=== PATIENT | female | born 1950 | race Caucasian/White ===

== ENCOUNTER 2024-08-20 11:17 | Inpatient (IN) | payer MEDICAID, OTHER ==
[2024-08-20] VITALS (14 sets, daily range): BP systolic 94–119; BP diastolic 37–59; PULSE 72–103; RESP 16–23; TEMP 98.6–100.4; O2SAT 94–97
[~2024-08-20] VITALS: Ht 157.5 cm; Wt 63.0 kg
[~2024-08-20 11:17] MED LIST: ATOR10TA52 PO; EMPA1TAB3 PO; MEXI150C15 PO; POTA-180 PO; SACU1TAB PO; SPIR25TA8 PO
[2024-08-20] MEDS ORDERED: DEXTROSE (50%) 50ML SYRG IV PRN ×2 (11:30→14:15)
--- NOTE | 2024-08-20 11:31 | ECG ---
[facility] Test Date: 2024-08-20 Test Time: 11:23:03 Pat Name: LINDA PENN Department: ED Room: [address] [place] [address] Gender: F Business Process Engineer: philip : 1950 Requested By: EMILE LEMUS Order Number: [id number] Reading MD: Lambert Cruz Measurements Intervals [place] Rate: 77 P: 47 MI: 181 QRS: -63 QRSD: 118 T: 68 QT: 380 QTc: 431 Interpretive Statements Sinus rhythm Consider left atrial enlargement Incomplete left bundle branch block Probable left ventricular hypertrophy Anterior Q waves, possibly due to LVH ST elevation, consider inferior injury Electronically Signed On 08-21-2024 20:35:00 PDT by Lambert Cruz Please click the below link to view image of tracing.
--- NOTE | 2024-08-20 11:38 | ED.PDOC ---
History of Present Illness HPI Comments 73Y F with PMHx DM, CHF, HTN, and pacemaker presents to ED via EMS with chief complaint general weakness x6 days with malaise, fatigue, and body aches. Upon EMS arrival on scene, findings were: BS 572, BP 58/35, weak pulse, SpO2 93% on RA, good capillary refill, and good mentation. Per pt, BS was 274 yesterday and she is compliant with her medications. Pt denies eating sugary foods and states she has been urinating many times. Pt reports drinking 3-4 water bottles per day. No other signs/symptoms or history reported. 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 Family History Family History: Unknown Social History Smoker: Non-Smoker Alcohol: Denies ETOH Use Drugs: Denies Drug Use Lives In: Home Constitutional: reports: fatigue, malaise, weakness, others (body aches); denies: chills, diaphoresis, fever, sweats EENTM: denies: blurred vision, double vision, ear bleeding, ear discharge, ear drainage, ear pain, ear ringing, eye pain, eye redness, hearing loss, mouth pain, mouth swelling, nasal discharge, nose bleeding, nose congestion, nose pain, photophobia, tearing, throat pain, throat swelling, voice changes, others Respiratory: denies: cough, hemoptysis, orthopnea, SOB at rest, shortness of breath, SOB with excertion, stridor, wheezing, others Cardiovascular: denies: chest pain, dizzy spells, diaphoresis, Dyspnea on exertion, edema, irregular heart beat, left arm pain, lightheadedness, palpitations, PND, syncope, others Gastrointestinal: denies: abdomen distended, abdominal pain, blood streaked bowels, constipated, diarrhea, dysphagia, difficulty swallowing, hematemesis, melena, nausea, poor appetite, poor fluid intake, rectal bleeding, rectal pain, vomiting, others Genitourinary: denies: abnormal vagina bleeding, burning, dyspareunia, dysuria, flank pain, frequency, hematuria, incontinence, pain, , vagina discharge, urgency, others Neurological: denies: dizziness, fainting, headache, left sided numbness, left sided weakness, numbness, paresthesia, pre-existing deficit, right sided numbness, right sided weakness, seizure, speech problems, tingling, tremors, weakness, others Musculoskeletal: denies: back pain, gout, joint pain, joint swelling, muscle pain, muscle stiffness, neck pain, others Integumetry: denies: bruises, change in color, change in hair/nails, dryness, laceration, lesions, lumps, rash, wounds, others Allergic/Immunocompromised: denies: Difficulty Healing, Frequent Infections, Hives, Itching, others Hematologic/Lymphatic: denies: anemia, blood clots, easy bleeding, easy bruising, swollen glands, others Endocrine: denies: excessive hunger, excessive sweating, excessive thirst, excessive urination, flushing, intolerance to cold, intolerance to heat, unexplained weight gain, unexplained weight loss, others Psychiatric: denies: anxiety, bipolar disorder, depression, hopeless, panic disorder, schizophrenia, sleepless, suicidal, others All Other Systems: Reviewed and Negative Physical Exam General Appearance: Mild Distress HEENT: Pharynx Normal, TMs Normal, Other (no fruity breath, dry tongue) Neck: Full Range of Motion, Non-Tender, Normal, Normal Inspection Respiratory: Chest Non-Tender, Lungs Clear, No Accessory Muscle Use, No Respiratory Distress, Normal Breath Sounds Cardiovascular: No Edema, No JVD, No Murmur, No Gallop, Normal Peripheral Pulses, Regular Rate/Rhythm Breast Exam: Deferred Gastrointestinal: No Organomegaly, Non Tender, No Pulsatile Mass, Normal Bowel Sounds, Soft Genitalia: Deferred Pelvic: Deferred Rectal: Deferred Extremities: No calf tenderness, Normal capillary refill, Normal inspection, Normal range of motion, Non-tender, No pedal edema Musculoskeletal : Apperance: Normal Neurologic: Alert, regional merchandising manager II-XII nml as Tested, No Motor Deficits, Normal Affect, Normal Mood, No Sensory Deficits Cerebellar Function: Normal Reflexes: Normal Skin: Dry, Normal Color, Warm Lymphatic: No Adenopathy Was a procedure done? Was a procedure done?: No Differential Dx Considerations may include: DKA, HHNS, acs, electrolyte disorders, renal failure, dehydration X-Ray, Labs, Meds, VS Vital Signs Date Time Temp Pulse Resp B/P (MAP) Pulse Ox O2 Delivery O2 Flow Rate FiO2 08/20/24 12:02 78 21 66/25 (39) 08/20/24 11:31 98.0 80 26 58/38 (45) 93 98.0 08/20/24 11:23 77 Lab Test 08/20/24 13:03 08/20/24 12:51 08/20/24 12:01 08/20/24 11:48 Range/Units Troponin I High Sensitivity Pending 16 </=34 ng/L Urine Color Pending Urine Clarity Pending Urine pH Pending Urine Specific [place] Pending Urine Protein Pending Urine Ketones Pending Urine Blood Pending Urine Nitrite Pending Urine Bilirubin Pending Urine Urobilinogen Pending Urine Leukocyte Esterase Pending Urine RBC Pending Urine Microscopic WBC Pending Urine Squamous Epithelial Cells Pending Urine Bacteria Pending Urine Glucose Pending Blood Gas Specimen Type Arterial Blood Gas Sample Site Right brachial Blood Gas Patient Temperature 37.0 Arterial Blood Date Drawn [id number] Arterial Blood pH 7.274 L 7.350-7.450 Arterial Blood Partial Pressure CO2 25.8 L 32.0-45.0 mmHg Arterial Blood Partial Pressure O2 68.5 L 83.0-108.0 mmHg Arterial Blood HCO3 11.7 L 21.0-28.0 mmol/L Arterial Blood Oxygen Saturation 91.7 L 94.0-98.0 % Arterial Blood Base Excess -13.2 L -2.0-3.0 mmol/L Arterial Blood Oxyhemoglobin 91.1 L 94.0-98.0 % Arterial Blood Carboxyhemoglobin 0.1 L 0.5-1.5 % Arterial Blood Methemoglobin 0.6 0.0-1.5 % Bright Test N/a Blood Gas Total Hemoglobin 15.20 12.0-16.0 g/dL Blood Gas Modality Room air FiO2 % 21.0 White Blood Count 30.0 H 4.4-10.8 10^3/uL Red Blood Count 5.38 H 4.0-5.20 10^6/uL Hemoglobin 15.6 12.2-16.2 g/dL Hematocrit 47.9 H 36.0-46.0 % Mean Corpuscular Volume 89.0 80.0-100.0 fL Mean Corpuscular Hemoglobin 29.0 28.0-32.0 pg Mean Corpuscular Hemoglobin Concent 32.5 32.0-36.0 g/dL Red Cell Distribution Width 14.8 H 11.8-14.3 % Platelet Count 49 L 140-450 10^3/uL Mean Platelet Volume 11.6 H 6.9-10.8 fL Neutrophils (%) (Auto) 37.0-80.0 % Lymphocytes (%) (Auto) 10.0-50.0 % Monocytes (%) (Auto) 0.0-12.0 % Basophils (%) (Auto) 0.0-2.0 % Neutrophils # (Auto) 1.6-8.6 10 ^3/uL Lymphocytes # (Auto) 0.4-5.4 10 ^3/uL Monocytes # (Auto) 0-1.3 10 ^3/uL Differential Total Cells Counted 100.0 100 Neutrophils % (Manual) 78 37.0-80.0 Band Neutrophils % (Manual) 5 Lymphocytes % (Manual) 9 L 10.0-50.0 Monocytes % (Manual) 8 0-12 Eosinophils % (Manual) 0 0-7 Basophils % (Manual) 0 0.0-2.0 Metamyelocytes % (manual) 0 Myelocytes % (Manual) 0 Promyelocytes % (Manual) 0 Blast Cells % (Manual) 0 Reactive Lymphocytes 0 Platelet Estimate Decreased Sodium Level 121 L 136-145 mmol/L Potassium Level 5.4 H 3.5-5.1 mmol/L Chloride Level 94 L 98-107 mmol/L Carbon Dioxide Level 12 L 20-31 mmol/L Anion Gap 15 5-15 Blood Urea Nitrogen 54 H 9-23 mg/dL Creatinine 2.87 H 0.550-1.02 mg/dL Glomerular Filtration Rate Calc 17 >90 mL/min BUN/Creatinine Ratio 18.8 10.0-20.0 Serum Glucose 356 H 74-106 mg/dL Serum Osmolality Pending Calcium Level 9.7 8.7-10.4 mg/dL Phosphorus Level 6.2 H 2.4-5.1 mg/dL Magnesium Level 3.7 H 1.6-2.6 mg/dL Total Bilirubin 0.4 0.2-1.0 mg/dL Aspartate Amino Transferase (AST) 57 H 13-40 U/L Alanine Aminotransferase (ALT) 33 7-40 U/L Alkaline Phosphatase 134 H 46-116 U/L Total Protein 6.2 5.7-8.2 g/dL Albumin 3.2 3.2-4.8 g/dL Beta-Hydroxybutyric Acid 2.865 H < 0.4 mmol/L Current Medications Medications (Trade) Dose Ordered Sig/Justen Route Start Time Stop Time Status Last Admin Sodium Chloride 1,000 ml @ 200 mls/hr Q5H ONCE IV 08/20/24 11:30 08/20/24 16:29 08/20/24 12:39 Insulin Human Regular (InsuLIN R) 4 units ONCE ONCE IV 08/20/24 11:30 08/20/24 11:31 DC 08/20/24 12:00 Insulin Human (Reg)/Sodium Chloride 100 ml @ 0.5 mls/hr Q24H IV 08/20/24 11:30 08/20/24 12:44 Diagnostic Test (Pha) (Accu-Chek Comfort Curve T) 1 strip Q90MIN 08/20/24 12:00 08/20/24 12:02 Insulin Glargine (Lantus) 15 units ONCE ONCE SC 08/20/24 11:30 08/20/24 11:31 DC 08/20/24 12:40 Sodium Chloride 500 ml @ 500 mls/hr Q1H ONCE IV 08/20/24 12:00 08/20/24 12:59 DC 08/20/24 11:55 [place] [address] Ph: [phone] DIAGNOSTIC IMAGING Diagnostic Imaging Report : [id number] Signed PATIENT: LINDA PENN ACCT: [id number] UNIT: [id number] : 1950 LOC: ER ROOM / BED: / AGE / SEX: 73 / F ADM STATUS: REG ER SERVICE ORDERING PHYSICIAN: EMILE LEMUS MD PROCEDURE(s): CXRP - CHEST PORTABLE REASON: weakness ORDER NUMBER(s): [id number], ACCESSION NUMBER(s): [id number] CHEST RADIOGRAPH Indication: weakness Technique: Single frontal view of the chest was obtained COMPARISON: None FINDINGS: Lines and Tubes: Pacemaker wires appear intact Lungs: Clear Pleura: No effusion. No pneumothorax. Cardiomediastinal contours: Mild cardiomegaly. Vascular calcification of the aortic arch. Bones: Unremarkable IMPRESSION: 1. No acute disease. ATED BY: PILO WHEELER MD DICTATED DATE/TIME: 08/20/241244 SIGNED BY: PILO WHEELER MD SIGNED DATE/TIME: 08/20/241244 CC: Time of 1ST Reevaluation: 11:52 Reevaluation 1ST: Unchanged Time of 2ND Reevaluation: 13:16 Reevaluation 2ND: Improved Patient Education/Counseling: Diagnosis, Treatment, Prognosis, Need For Follow Up Family Education/Counseling: No Family Present Additional Information The following tests were ordered, and results were reviewed by me: ACCUCHEK, EKG X3, CBC, CMP, TROP X3, PHOSPHORUS, MG, OSMOLALITY, ACETONE, ABG, UA, FLU A/B, COVID, CXR Additional Information was gathered from interviewing the following independent historians: EMS I reviewed and agreed with the following test results read by other providers: CXR I discussed treatment and results with medical personnel and: Patient Comprehensive systems review obtained and negative except for what is stated in the HPI. pt has HONKS/DKA mix disorder, with severe dehydration, leading to hypotension, renal failure, and leukocytosis. she also has pseudohyponatremia due to hyperglycemia. although no sources of infection is identified yet, sepsis cannot be ruled out at this point, so i added sepsis order set. pt will need copious volume replacement, despite of the history CHF. Sepsis Sepsis Reasesment Focused Exam Sepsis focused exam: focus exam completed (improved BP with systolic in the 120s, cap refill<2 secs, alert, oriented), time: (1326) Departure 1 Departure Time of Disposition: 13:22 Impression: Primary Impression: DKA (diabetic ketoacidosis) Qualified Codes: E13.10 - Other specified diabetes mellitus with ketoacidosis without coma Additional Impressions: Hyperosmolar syndrome Dehydration Acute renal failure Qualified Codes: N17.9 - Acute kidney failure, unspecified Pseudohyponatremia Disposition: ADMITTED INPATIENT Admit to: ICU Condition: Serious Critical Care Note Critical Care Time?: Yes (55 min-critical care time only) Critical care comment: Due to concerns for patients condition deteriorating, the care required my highest level of attention and readiness to intervene. I assessed the patient, reviewed the medical records, ordered the appropriate tests and treatments, then reassessed for results and responsiveness. I communicated with medical personnel and consultants and formulated a plan of care. Total critical care time excludes any procedures Stability Stability form required: No Heart Score Heart Score: Heart Score Response (Comments) Value History N/A 0 EKG N/A 0 Age N/A 0 Risk Factors N/A 0 Troponin N/A 0 Total 0 I personally scribed for EMILE LEMUS MD ([email or web address]) on 08/20/24 at 11:37. Electronically submitted by Jesi Wadsworth ([email or web address]). I personally scribed for EMILE LEMUS MD ([email or web address]) on 08/20/24 at 12:51. Electronically submitted by Jesi Wadsworth ([email or web address]). EMILE LEMUS MD Aug 20, 2024 11:37
[2024-08-20] MEDS: SODIUM CHLORIDE 0.9% 500 ML IV ONE ×2 (11:55→16:49)
[2024-08-20] MEDS: InsuLIN REG 1unit/0.01ml Soln (100units/ml) IV ONE (12:00)
[2024-08-20 12:01] LABS: Mean Corpuscular Hgb Conc. 32.5 g/dL (32.0-36.0)
[2024-08-20] MEDS: ACCU-CHEK COMFORT CURVE STRIP VI SCH (12:02)
[2024-08-20 12:06] LABS: Hematocrit 47.9 % (36.0-46.0); Hemoglobin 15.6 g/dL (12.2-16.2); Platelet Count (auto) 49 10^3/uL (140-450); Red Blood Cells 5.38 10^6/uL (4.0-5.20); Red Cell Distribution Width 14.8 % (11.8-14.3)
[2024-08-20 12:10] LABS: Basophils % (manual) 0 (0.0-2.0); Blast Cells 0; Eosinophils % (manual) 0 (0-7); Metamyelocytes % 0; Myelocytes % 0; Promyelocytes % 0; Reactive Lymphocytes 0
[2024-08-20 12:11] LABS: Base Excess -13.2 mmol/L (-2.0-3.0)
[2024-08-20 12:24] LABS: Alanine Aminotransferase 33 U/L (7-40); Anion Gap 15 (5-15); BUN/Creatinine Ratio 18.8 (10.0-20.0); Bilirubin, Total 0.4 mg/dL (0.2-1.0); Calcium 9.7 mg/dL (8.7-10.4); Total Protein 6.2 g/dL (5.7-8.2)
[2024-08-20 12:33] LABS: Blood Urea Nitrogen 54 mg/dL (9-23); Carbon Dioxide 12 mmol/L (20-31); Chloride 94 mmol/L (98-107); Glucose 356 mg/dL (74-106); Potassium 5.4 mmol/L (3.5-5.1); Sodium 121 mmol/L (136-145)
[2024-08-20 12:34] LABS: Albumin 3.2 g/dL (3.2-4.8); Alkaline Phosphatase 134 U/L (46-116); Aspartate Aminotransferase 57 U/L (13-40); Magnesium 3.7 mg/dL (1.6-2.6); Phosphorus 6.2 mg/dL (2.4-5.1)
[2024-08-20] MEDS: SODIUM CHLORIDE 0.9% 1,000 ML IV ONE ×2 (12:39→16:49)
[2024-08-20] MEDS: INSULIN LANTUS (GLARGINE) 1 /0.01ml (100units/ml) SC ONE ×2 (12:40→14:30)
[2024-08-20] MEDS: INSULIN DRIP 100 UNIT/100ML 100 ML IV SCH (12:44)
--- NOTE | 2024-08-20 12:47 | DVH ---
CHEST RADIOGRAPH Indication: weakness Technique: Single frontal view of the chest was obtained COMPARISON: None FINDINGS: Lines and Tubes: Pacemaker wires appear intact Lungs: Clear Pleura: No effusion. No pneumothorax. Cardiomediastinal contours: Mild cardiomegaly. Vascular calcification of the aortic arch. Bones: Unremarkable IMPRESSION: 1. No acute disease.
[2024-08-20 12:55] LABS: Band Neutrophils % (manual) 5; Lymphocytes % (manual) 9 (10.0-50.0); Monocytes % (manual) 8 (0-12); Platelet Estimate Decreased
[2024-08-20 13:32] LABS: Urine Bacteria MANY /hpf (None Seen); Urine Blood 3+ /uL (Negative); Urine Clarity Turbid (Clear); Urine Color Colorless (Yellow); Urine Mucus MANY (None Seen); Urine Protein, UAD 1+ (Negative); Urine Specific Gravity 1.013 (1.001-1.035); Urine Squamous Epithelial Cell None Seen /hpf (<5); Urine Urobilinogen Normal (Negative); Urine WBC 15 /HPF (0-5)
[2024-08-20] MEDS: LACTATED RINGER'S 1,700 ML IV ONE (13:54)
[2024-08-20] MEDS: PIPERACILLIN-TAZOB 3.375GM 100 ML IV ONE (13:58)
[2024-08-20] MEDS ORDERED: PIPERACILLIN-TAZO 4.5GM 100 ML IV SCH (14:00)
[2024-08-20] MEDS ORDERED: D5W/SOD CHL 0.45%/KCL 20MEQ 1,000 ML IV SCH (14:15)
[2024-08-20] MEDS ORDERED: INSULIN DRIP 100 UNIT/100ML 100 ML IV SCH (14:15)
--- NOTE | 2024-08-20 14:18 | DVHHP2 ---
Admitting Diagnosis: Generalized weakness History of Present Illness 73Y F with PMHx DM, CHF, HTN, and pacemaker presents to ED via EMS with chief complaint general weakness x6 days with malaise, fatigue, and body aches. Upon EMS arrival on scene, findings were: BS 572, BP 58/35, weak pulse, SpO2 93% on RA, good capillary refill, and good mentation. Per pt, BS was 274 yesterday and she is compliant with her medications. Pt denies eating sugary foods and states she has been urinating many times. Pt reports drinking 3-4 water bottles per day. No other signs/symptoms or history reported. 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 Family History Family History: Unknown Social History Smoker: Non-Smoker Alcohol: Denies ETOH Use Drugs: Denies Drug Use Lives In: Home Allergies: Coded Allergies: NO KNOWN ALLERGIES (Unverified , 08/20/24) Current Medications Current Medications Medications (Trade) Dose Ordered Sig/Justen Route PRN Reason Start Time Stop Time Status Last Admin Insulin Human (Reg)/Sodium Chloride 100 ml @ 0.5 mls/hr Q24H IV 08/20/24 11:30 08/20/24 12:44 Dextrose 50 ml UD PRN IV SEE CURRENT ALGORITHM or SCALE 08/20/24 11:30 Diagnostic Test (Pha) (Accu-Chek Comfort Curve T) 1 strip Q90MIN 08/20/24 12:00 08/20/24 18:22 Insulin Glargine (Lantus) 15 units DAILY SC 08/21/24 10:00 08/20/24 14:12 DC Piperacillin Sod/ Tazobactam Sod 100 ml @ 25 mls/hr Q8HR IV 08/20/24 14:00 08/20/24 13:26 DC Piperacillin Sod/ Tazobactam Sod 100 ml @ 25 mls/hr Q12HR IV 08/20/24 22:00 Potassium Chloride/Dextrose/ Sod Cl 1,000 ml @ 175 mls/hr Q5H43M IV 08/20/24 14:15 08/20/24 15:17 DC Insulin Human (Reg)/Sodium Chloride 100 ml @ 0.5 mls/hr Q24H IV 08/20/24 14:15 08/20/24 14:13 DC Dextrose 50 ml UD PRN IV SEE CURRENT ALGORITHM or SCALE 08/20/24 14:15 08/20/24 14:12 DC Diagnostic Test (Pha) (Accu-Chek Comfort Curve T) 1 strip Q90MIN 08/20/24 15:00 08/20/24 14:12 DC Insulin Glargine (Lantus) 15 units DAILY SC 08/21/24 10:00 Norepinephrine Bitartrate 250 ml @ 3.75 mls/hr Q24H IV 08/20/24 15:15 08/20/24 16:00 Sodium Chloride (Saline Lock Ns) 10 ml Q8HR IV 08/20/24 22:00 Docusate Sodium (Colace Capsule) 100 mg BIDPRN PRN PO FOR CONSTIPATION 08/20/24 17:00 Acetaminophen (Tylenol Tablet) 650 mg Q6HP PRN PO PAIN SCALE 1-3 OR TEMP>100.4 08/20/24 17:00 Acetaminophen/ Hydrocodone Bitart ([place] 5/325MG Tab) 1 tab Q4HP PRN PO MODERATE PAIN (4-6 PAIN SCALE) 08/20/24 17:00 Ondansetron HCl (Zofran) 4 mg Q4HP PRN IV NAUSEA / VOMITING 08/20/24 17:00 Vital Signs Vital Signs Date Time Temp Pulse Resp B/P (MAP) Pulse Ox O2 Delivery O2 Flow Rate FiO2 08/20/24 18:15 96.3 92 25 108/69 (82) 94 96.3 08/20/24 13:06 Nasal Cannula* 2 28 Physical Exam Generally-73 years old woman, well nourished well developed. mild distress HEENT-atraumatic normocephalic Heart-sinus tachycardic Lungs the auscultate bilaterally, check anemia Abdomen soft, mild tender, nondistended Musculoskeletal-pedal edema, a cyanosis Neuro-Awake, alert, confused, answer some questions. strength and sensation intact. Results Labs Test 08/20/24 18:22 08/20/24 14:45 08/20/24 14:36 08/20/24 12:51 Range/Units POC Glucose 220 H 70-106 mg/dl Influenza Type A Antigen Negative Negative Influenza Type B Antigen Negative Negative SARS-CoV-2 Antigen (Rapid) Negative NEGATIVE White Blood Count 25.0 H 4.4-10.8 10^3/uL Red Blood Count 4.47 4.0-5.20 10^6/uL Hemoglobin 12.9 # 12.2-16.2 g/dL Hematocrit 38.7 # 36.0-46.0 % Mean Corpuscular Volume 86.5 80.0-100.0 fL Mean Corpuscular Hemoglobin 28.8 28.0-32.0 pg Mean Corpuscular Hemoglobin Concent 33.3 32.0-36.0 g/dL Red Cell Distribution Width 14.3 11.8-14.3 % Platelet Count 50 L 140-450 10^3/uL Mean Platelet Volume 11.5 H 6.9-10.8 fL Neutrophils (%) (Auto) 37.0-80.0 % Lymphocytes (%) (Auto) 10.0-50.0 % Monocytes (%) (Auto) 0.0-12.0 % Basophils (%) (Auto) 0.0-2.0 % Neutrophils # (Auto) 1.6-8.6 10 ^3/uL Lymphocytes # (Auto) 0.4-5.4 10 ^3/uL Monocytes # (Auto) 0-1.3 10 ^3/uL Differential Total Cells Counted 100.0 100 Neutrophils % (Manual) 80 37.0-80.0 Band Neutrophils % (Manual) 8 Lymphocytes % (Manual) 2 L 10.0-50.0 Monocytes % (Manual) 10 0-12 Eosinophils % (Manual) 0 0-7 Basophils % (Manual) 0 0.0-2.0 Metamyelocytes % (manual) 0 Myelocytes % (Manual) 0 Promyelocytes % (Manual) 0 Blast Cells % (Manual) 0 Reactive Lymphocytes 0 Platelet Estimate Decreased Large Platelets Few [place] Cells Few Prothrombin Time 13.5 H 9.3-11.8 sec Prothrombin Time INR 1.31 H 0.9-1.15 Sodium Level 130 #L 136-145 mmol/L Potassium Level 3.7 3.5-5.1 mmol/L Chloride Level 101 98-107 mmol/L Carbon Dioxide Level 16 L 20-31 mmol/L Anion Gap 13 5-15 Blood Urea Nitrogen 75 #H 9-23 mg/dL Creatinine 2.37 H 0.550-1.02 mg/dL Glomerular Filtration Rate Calc 21 >90 mL/min BUN/Creatinine Ratio 31.6 H 10.0-20.0 Serum Glucose 217 H 74-106 mg/dL Lactic Acid Level 2.8 *H 0.4-2.0 mmol/L Calcium Level 7.8 L 8.7-10.4 mg/dL Total Bilirubin 0.2 0.2-1.0 mg/dL Aspartate Amino Transferase (AST) 35 13-40 U/L Alanine Aminotransferase (ALT) 24 7-40 U/L Alkaline Phosphatase 83 46-116 U/L Troponin I High Sensitivity 10 </=34 ng/L Total Protein 4.2 L 5.7-8.2 g/dL Albumin 2.3 L 3.2-4.8 g/dL Urine Color Colorless Yellow Urine Clarity Turbid H Clear Urine pH 5.0 5.0-9.0 Urine Specific [place] 1.013 1.001-1.035 Urine Protein 1+ H Negative Urine Ketones Negative Negative Urine Blood 3+ H Negative /uL Urine Nitrite Negative Negative Urine Bilirubin Negative Negative Urine Urobilinogen Normal Negative mg/dL Urine Leukocyte Esterase 3+ Negative /uL Urine RBC 4 0 - 4 /hpf Urine Microscopic WBC 15 H 0-5 /HPF Urine Squamous Epithelial Cells None seen <5 /hpf Urine Bacteria Many H None Seen /hpf Urine Mucus Many None Seen Urine Glucose 4+ H Normal mg/dL Test 08/20/24 12:01 08/20/24 11:48 Range/Units Blood Gas Specimen Type Arterial Blood Gas Sample Site Right brachial Blood Gas Patient Temperature 37.0 Arterial Blood Date Drawn [id number] Arterial Blood pH 7.274 L 7.350-7.450 Arterial Blood Partial Pressure CO2 25.8 L 32.0-45.0 mmHg Arterial Blood Partial Pressure O2 68.5 L 83.0-108.0 mmHg Arterial Blood HCO3 11.7 L 21.0-28.0 mmol/L Arterial Blood Oxygen Saturation 91.7 L 94.0-98.0 % Arterial Blood Base Excess -13.2 L -2.0-3.0 mmol/L Arterial Blood Oxyhemoglobin 91.1 L 94.0-98.0 % Arterial Blood Carboxyhemoglobin 0.1 L 0.5-1.5 % Arterial Blood Methemoglobin 0.6 0.0-1.5 % Bright Test N/a Blood Gas Total Hemoglobin 15.20 12.0-16.0 g/dL Blood Gas Modality Room air FiO2 % 21.0 Serum Osmolality 306 H 278-298 mOsm/kg Phosphorus Level 6.2 H 2.4-5.1 mg/dL Magnesium Level 3.7 H 1.6-2.6 mg/dL Beta-Hydroxybutyric Acid 2.865 H < 0.4 mmol/L Primary Diagnosis DKA Sepsis likely due to urinary tract infection Severe hyponatremia Severe dehydration AZUCENA on CKD Plan Elevated beta hydroxybutyrate, hypotension, elevated WBC, elevated glucose Insulin drip started in ED for DKA NPO except meds IV fluids started in ED Pressor support for map goal > 65 while septic F/u with BCx, sputum Cx Zosyn for broad spectrum abx. adjust abx according to culture and sensitivity trend lactic q6h until < 2 Check BNP, CMP stat now to assess for electrolyte abnormalities IVF for hydration kidney us Dr. Juarez for AZUCENA CKD Electrolytes potassium greater than four, magnesium greater than two while in DKA Monitor vitals closely Full code Heparin for DVT prophylaxis PPI for GI prophylaxis Plan discussed with: Patient Problems List: (1) DKA (diabetic ketoacidosis) Status: Acute (2) Acute renal failure Status: Acute (3) Pseudohyponatremia Status: Acute Date of Service: Aug 20, 2024 Billing Provider: JOE LISA MD Common Visit Codes: [id number] CARE 30-74 MIN JOE LISA MD Aug 20, 2024 14:17
[2024-08-20 14:24] LABS: Lactic Acid w/Reflex 2.7 mmol/L (0.4-2.0)
[2024-08-20 14:52] LABS: Hemoglobin 12.9 g/dL (12.2-16.2)
[2024-08-20 14:55] LABS: Hematocrit 38.7 % (36.0-46.0); Mean Corpuscular Hemoglobin 28.8 pg (28.0-32.0); Mean Corpuscular Hgb Conc. 33.3 g/dL (32.0-36.0); Mean Corpuscular Volume 86.5 fL (80.0-100.0); Platelet Count (auto) 50 10^3/uL (140-450); Red Blood Cells 4.47 10^6/uL (4.0-5.20); Red Cell Distribution Width 14.3 % (11.8-14.3)
[2024-08-20] MEDS ORDERED: ACCU-CHEK COMFORT CURVE STRIP VI SCH (15:00)
[2024-08-20 15:10] LABS: Alanine Aminotransferase 24 U/L (7-40); Alkaline Phosphatase 83 U/L (46-116); Anion Gap 13 (5-15); Aspartate Aminotransferase 35 U/L (13-40); BUN/Creatinine Ratio 31.6 (10.0-20.0); Chloride 101 mmol/L (98-107); Potassium 3.7 mmol/L (3.5-5.1)
[2024-08-20 15:15] LABS: Basophils % (manual) 0 (0.0-2.0); Blast Cells 0; Eosinophils % (manual) 0 (0-7); Metamyelocytes % 0; Myelocytes % 0; Promyelocytes % 0; Reactive Lymphocytes 0
[2024-08-20 15:16] LABS: Carbon Dioxide 16 mmol/L (20-31); Sodium 130 mmol/L (136-145)
[2024-08-20 15:17] LABS: Albumin 2.3 g/dL (3.2-4.8); Bilirubin, Total 0.2 mg/dL (0.2-1.0); Blood Urea Nitrogen 75 mg/dL (9-23); Calcium 7.8 mg/dL (8.7-10.4); Glucose 217 mg/dL (74-106); Total Protein 4.2 g/dL (5.7-8.2)
[2024-08-20 15:20] LABS: INR 1.31 (0.9-1.15); Prothrombin Time 13.5 sec (9.3-11.8)
[2024-08-20] MEDS: D5W/SOD CHLO 0.9% 1,000 ML IV ONE (15:45)
[2024-08-20] MEDS: NOREPINEPHRINE 8 MG/250ML KIT 250 ML IV SCH (16:00)
[2024-08-20 16:02] LABS: COVID19 ANTIGEN SOFIA FIA NEGATIVE (NEGATIVE); Rapid Influenza A Negative (Negative); Rapid Influenza B Negative (Negative)
[2024-08-20 16:11] LABS: Band Neutrophils % (manual) 8; Lymphocytes % (manual) 2 (10.0-50.0); Monocytes % (manual) 10 (0-12); Platelet Estimate Decreased
[2024-08-20 16:13] LABS: Large Platelets FEW
[2024-08-20] MEDS: fentaNYL CITRATE 100 MCG/2 ML VL IV ONE (17:46)
--- NOTE | 2024-08-20 18:01 | DVH ---
RENAL ULTRASOUND CLINICAL HISTORY: AZUCENA on CKD TECHNIQUE: Multiple grayscale ultrasound images were obtained through the kidneys and urinary bladder . COMPARISON: None FINDINGS: Right kidney: Measures 9.63 cm. No hydronephrosis. Mild increased cortical echogenicity. Left kidney: Measures 7.85 cm. No hydronephrosis. Cyst in the left kidney measures 2.1 x 1.7 x 1.2 cm . Mild increased cortical echogenicity. Urinary bladder: Masters catheter decompresses the urinary bladder. IMPRESSION: 1. No evidence of hydronephrosis. 2. Small left renal cyst. 3. Mild increased bilateral cortical echogenicity which is likely due to medical renal disease.
[2024-08-20] MEDS: SODIUM CHLOR 0.9% PF (SALINE LOCK) 10ML VIAL/SYR IV SCH (21:06)
[2024-08-20] MEDS: PIPERACILLIN-TAZOB 3.375GM 100 ML IV SCH (21:07)
[2024-08-20] MEDS: ACETAMINOPHEN 325 MG TAB PO PRN (21:07)
[2024-08-20] MEDS: HYDROcodone-ACET 5/325MG TAB PO PRN (22:42)
[2024-08-21] VITALS (74 sets, daily range): BP systolic 61–193; BP diastolic 21–157; PULSE 75–128; RESP 12–28; TEMP 99–100.6; O2SAT 93–98
--- NOTE | 2024-08-21 00:22 | DVH ---
CT SCAN ABDOMEN AND PELVIS WITHOUT CONTRAST CLINICAL HISTORY: abdominal pain TECHNIQUE: Helical axial images are obtained from the lung bases through the pelvis without oral cont rast. No intravenous contrast was administered. Coronal and sagittal reformatted images were generate d from thin section reconstructions. One or more of the following radiation dose reduction techniques were used for this examination: automated exposure control, adjustment of the mA and/or kV according to patient size, use of iterative reconstruction technique. COMPARISON: Renal ultrasound 08/20/2024 FINDINGS: LOWER THORAX: Dependent atelectasis in the lower lobes. ABDOMEN AND PELVIS: Evaluation of visceral and vascular structures is limited due to lack of contrast administration. As visualized, the unenhanced liver, spleen, pancreas and right adrenal appear grossly unremarkable. Mild nodular thickening of the left adrenal gland is noted. Layering sludge/calculi in the gallbladder. No definite CT evidence cholecystitis. [id number] left hydroureteronephrosis. An approximately 1 cm x 0.6 cm irregular calculus seen i n the distal left ureter. Additional small nonobstructing left lower pole nephrolithiasis as well. Aortoiliac atherosclerotic calcifications. No evidence of abdominal aortic aneurysm. No evidence of bowel obstruction. Extensive colonic diverticulosis. No definite CT evidence of divert iculitis at this time. No free intraperitoneal air or fluid identified. Air urinary bladder is collapsed around a Masters catheter. Multilevel degenerative changes of the lumbar spine. IMPRESSION: Czvy-[id number]-[id number] left hydroureteronephrosis. Approximately 1 cm x 0.6 cm calculus seen in the distal left ureter. Other findings as above.
[2024-08-21] MEDS ORDERED: VANCOMYCIN PER PHARMACY 0 MG IV SCH (01:00)
[2024-08-21] MEDS: VANCOMYCIN 1.25GM/250ML 250 ML IV ONE (01:30)
[2024-08-21 04:45] LABS: Hemoglobin 15.1 g/dL (12.2-16.2); Mean Corpuscular Volume 85.7 fL (80.0-100.0); Platelet Count (auto) 49 10^3/uL (140-450); Red Cell Distribution Width 14.4 % (11.8-14.3)
[2024-08-21 04:47] LABS: Hematocrit 44.5 % (36.0-46.0); Mean Corpuscular Hemoglobin 29.1 pg (28.0-32.0); Mean Corpuscular Hgb Conc. 33.9 g/dL (32.0-36.0); Red Blood Cells 5.19 10^6/uL (4.0-5.20)
[2024-08-21 04:56] LABS: Alanine Aminotransferase 27 U/L (7-40); Anion Gap 11 (5-15); BUN/Creatinine Ratio 31.1 (10.0-20.0); Chloride 104 mmol/L (98-107); Potassium 3.8 mmol/L (3.5-5.1)
[2024-08-21 04:57] LABS: Bilirubin, Total 0.4 mg/dL (0.2-1.0); Sodium 131 mmol/L (136-145)
[2024-08-21 04:58] LABS: Albumin 2.8 g/dL (3.2-4.8); Alkaline Phosphatase 149 U/L (46-116); Aspartate Aminotransferase 54 U/L (13-40); Blood Urea Nitrogen 51 mg/dL (9-23); Calcium 8.6 mg/dL (8.7-10.4); Carbon Dioxide 16 mmol/L (20-31); Glucose 217 mg/dL (74-106); Magnesium 2.7 mg/dL (1.6-2.6); Total Protein 5.4 g/dL (5.7-8.2)
[2024-08-21 05:06] LABS: Basophils % (manual) 0 (0.0-2.0); Eosinophils % (manual) 0 (0-7); Metamyelocytes % 0; Myelocytes % 0; Promyelocytes % 0; Reactive Lymphocytes 0
[2024-08-21 05:32] LABS: Band Neutrophils % (manual) 7; Blast Cells 2; Lymphocytes % (manual) 4 (10.0-50.0); Monocytes % (manual) 10 (0-12); Platelet Estimate Decreased; Smudge Cells 2 /100 WBC
--- NOTE | 2024-08-21 08:44 | DVHINCON2 ---
Date of service: Aug 21, 2024 Referring Physician hospitalist Reason for Consultation obstructive uropathy History of Present Illness History Source: Patient, RN Notes, MD Notes Exam Limitations: No limitations HPI 73Y F with PMHx DM, CHF, HTN, and pacemaker presents to ED via EMS with chief complaint general weakness x6 days with malaise, fatigue, and body aches. Upon EMS arrival on scene, findings were: BS 572, BP 58/35, weak pulse, SpO2 93% on RA, good capillary refill, and good mentation. Per pt, BS was 274 yesterday and she is compliant with her medications. Pt denies eating sugary foods and states she has been urinating many times. Pt reports drinking 3-4 water bottles per day. No other signs/symptoms or history reported. Review of Systems Constitutional: Chills, Fever, Malaise, Weakness Gastrointestinal: Nausea, Vomiting, Abdominal Pain H&P Exam Vital Signs Vital Signs Date Time Temp Pulse Resp B/P (MAP) Pulse Ox O2 Delivery O2 Flow Rate FiO2 08/21/24 08:34 81 08/21/24 06:45 99.0 17 115/37 (63) 97 210.2 08/21/24 06:00 Nasal Cannula* 2 28 General Appeara: Well developed, Well nourished, Normal Appearance, Moderate distress Mouth: Dry mouth Pulmonary/Respiratory: Normal inspection, Normal breath sounds, Chest non- tender, Lungs clear Cardiovascular/Chest: Tachycardia Abdominal Exam: Normal bowel sounds, Soft, No masses PITCH FLAKER Exam: PERRL Neuro/Mental St: Alert, Oriented Appearance: Appropriate appearance, Appropriate insight Eye contact/ Speech: Cooperative, Good eye contact, Normal speech Skin Exam: Normal inspection, Normal color, Warm/dry Labs/Xrays [facility] [id number] [place] [id number] Ph: [phone] DIAGNOSTIC IMAGING Diagnostic Imaging Report : [id number] Signed PATIENT: LINDA PENN ACCT: [id number] UNIT: [id number] : 1950 LOC: OVERFLOW ROOM / BED: [facility] / A AGE / SEX: 73 / F ADM STATUS: ADM IN SERVICE 370 ORDERING PHYSICIAN: JOE LISA MD PROCEDURE(s): ABPL - CT AB PEL WO CON-NO ORAL OR IV REASON: abdominal pain ORDER NUMBER(s): [id number], ACCESSION NUMBER(s): [id number] CT SCAN ABDOMEN AND PELVIS WITHOUT CONTRAST CLINICAL HISTORY: abdominal pain TECHNIQUE: Helical axial images are obtained from the lung bases through the pelvis without oral contrast. No intravenous contrast was administered. Coronal and sagittal reformatted images were generated from thin section reconstructions. One or more of the following radiation dose reduction techniques were used for this examination: automated exposure control, adjustment of the mA and/or kV according to patient size, use of iterative reconstruction technique. COMPARISON: Renal ultrasound 08/20/2024 FINDINGS: LOWER THORAX: Dependent atelectasis in the lower lobes. ABDOMEN AND PELVIS: Evaluation of visceral and vascular structures is limited due to lack of contrast administration. As visualized, the unenhanced liver, spleen, pancreas and right adrenal appear grossly unremarkable. Mild nodular thickening of the left adrenal gland is noted. Layering sludge/calculi in the gallbladder. No definite CT evidence cholecystitis. [id number] left hydroureteronephrosis. An approximately 1 cm x 0.6 cm irregular calculus seen in the distal left ureter. Additional small nonobstru cting left lower pole nephrolithiasis as well. Aortoiliac atherosclerotic calcifications. No evidence of abdominal aortic aneu rysm. No evidence of bowel obstruction. Extensive colonic diverticulosis. No definite CT evidence of diverticulitis at this time. No free intraperitoneal air or fluid identified. Air urinary bladder is collapsed around a Pedroza catheter. Multilevel degenerative changes of the lumbar spine. IMPRESSION: [id number] left hydroureteronephrosis. Approximately 1 cm x 0.6 cm ca lculus seen in the distal left ureter. Other findings as above. ATED BY: JACOB BRIZUELA MD DICTATED DATE/TIME: 08/21/2418 SIGNED BY: JACOB BRIZUELA MD SIGNED DATE/TIME: 08/21/2418 CC: Labs Test 08/21/24 07:53 08/21/24 07:15 08/21/24 03:56 08/20/24 14:45 Range/Units POC Glucose 166 H 70-106 mg/dl White Blood Count 34.0 #*H 4.4-10.8 10^3/uL Red Blood Count 5.19 4.0-5.20 10^6/uL Hemoglobin 15.1 # 12.2-16.2 g/dL Hematocrit 44.5 # 36.0-46.0 % Mean Corpuscular Volume 85.7 80.0-100.0 fL Mean Corpuscular Hemoglobin 29.1 28.0-32.0 pg Mean Corpuscular Hemoglobin Concent 33.9 32.0-36.0 g/dL Red Cell Distribution Width 14.4 H 11.8-14.3 % Platelet Count 49 L 140-450 10^3/uL Mean Platelet Volume 11.4 H 6.9-10.8 fL Neutrophils (%) (Auto) 37.0-80.0 % Lymphocytes (%) (Auto) 10.0-50.0 % Monocytes (%) (Auto) 0.0-12.0 % Basophils (%) (Auto) 0.0-2.0 % Neutrophils # (Auto) 1.6-8.6 10 ^3/uL Lymphocytes # (Auto) 0.4-5.4 10 ^3/uL Monocytes # (Auto) 0-1.3 10 ^3/uL Differential Total Cells Counted 100.0 100 Neutrophils % (Manual) 77 37.0-80.0 Band Neutrophils % (Manual) 7 Lymphocytes % (Manual) 4 L 10.0-50.0 Monocytes % (Manual) 10 0-12 Eosinophils % (Manual) 0 0-7 Basophils % (Manual) 0 0.0-2.0 Metamyelocytes % (manual) 0 Myelocytes % (Manual) 0 Promyelocytes % (Manual) 0 Blast Cells % (Manual) 2 Reactive Lymphocytes 0 Smudge Cells 2 /100 WBC Platelet Estimate Decreased Sodium Level 131 L 136-145 mmol/L Potassium Level 3.8 3.5-5.1 mmol/L Chloride Level 104 98-107 mmol/L Carbon Dioxide Level 16 L 20-31 mmol/L Anion Gap 11 5-15 Blood Urea Nitrogen 51 #H 9-23 mg/dL Creatinine 1.64 #H 0.550-1.02 mg/dL Glomerular Filtration Rate Calc 33 >90 mL/min BUN/Creatinine Ratio 31.1 H 10.0-20.0 Serum Glucose 217 H 74-106 mg/dL Calcium Level 8.6 L 8.7-10.4 mg/dL Magnesium Level 2.7 #H 1.6-2.6 mg/dL Total Bilirubin 0.4 0.2-1.0 mg/dL Aspartate Amino Transferase (AST) 54 H 13-40 U/L Alanine Aminotransferase (ALT) 27 7-40 U/L Alkaline Phosphatase 149 H 46-116 U/L Total Protein 5.4 L 5.7-8.2 g/dL Albumin 2.8 L 3.2-4.8 g/dL Influenza Type A Antigen Negative Negative Influenza Type B Antigen Negative Negative SARS-CoV-2 Antigen (Rapid) Negative NEGATIVE Test 08/20/24 14:36 08/20/24 12:51 08/20/24 12:01 08/20/24 11:48 Range/Units Large Platelets Few [place] Cells Few Prothrombin Time 13.5 H 9.3-11.8 sec Prothrombin Time INR 1.31 H 0.9-1.15 Troponin I High Sensitivity 10 </=34 ng/L Urine Color Colorless Yellow Urine Clarity Turbid H Clear Urine pH 5.0 5.0-9.0 Urine Specific [place] 1.013 1.001-1.035 Urine Protein 1+ H Negative Urine Ketones Negative Negative Urine Blood 3+ H Negative /uL Urine Nitrite Negative Negative Urine Bilirubin Negative Negative Urine Urobilinogen Normal Negative mg/dL Urine Leukocyte Esterase 3+ Negative /uL Urine RBC 4 0 - 4 /hpf Urine Microscopic WBC 15 H 0-5 /HPF Urine Squamous Epithelial Cells None seen <5 /hpf Urine Bacteria Many H None Seen /hpf Urine Mucus Many None Seen Urine Glucose 4+ H Normal mg/dL Blood Gas Specimen Type Arterial Blood Gas Sample Site Right brachial Blood Gas Patient Temperature 37.0 Arterial Blood Date Drawn [id number] Arterial Blood pH 7.274 L 7.350-7.450 Arterial Blood Partial Pressure CO2 25.8 L 32.0-45.0 mmHg Arterial Blood Partial Pressure O2 68.5 L 83.0-108.0 mmHg Arterial Blood HCO3 11.7 L 21.0-28.0 mmol/L Arterial Blood Oxygen Saturation 91.7 L 94.0-98.0 % Arterial Blood Base Excess -13.2 L -2.0-3.0 mmol/L Arterial Blood Oxyhemoglobin 91.1 L 94.0-98.0 % Arterial Blood Carboxyhemoglobin 0.1 L 0.5-1.5 % Arterial Blood Methemoglobin 0.6 0.0-1.5 % Bright Test N/a Blood Gas Total Hemoglobin 15.20 12.0-16.0 g/dL Blood Gas Modality Room air FiO2 % 21.0 Serum Osmolality 306 H 278-298 mOsm/kg Phosphorus Level 6.2 H 2.4-5.1 mg/dL Beta-Hydroxybutyric Acid 2.865 H < 0.4 mmol/L Microbiology Date/Time Source Procedure Growth Status 08/20/24 13:03 Blood Blood Culture - Preliminary Resulted Assessment/Plan Problem List: (1) Dehydration (2) Acute renal failure (3) DKA (diabetic ketoacidosis) (4) Hyperosmolar syndrome (5) Pseudohyponatremia (6) Sepsis (7) Bacteremia Plan left PCN placement per IR service ESWL vs URSLL TBA when medically stable keep pedroza sepsis management Plan discussed with: Patient, Other NO HILL NP Aug 21, 2024 08:44
[2024-08-21 09:04] LABS: Lactic Acid w/Reflex 2.1 mmol/L (0.4-2.0)
[2024-08-21] MEDS ORDERED: INSULIN LANTUS (GLARGINE) 1 /0.01ml (100units/ml) SC SCH (10:00)
[2024-08-21] MEDS: INSULIN LANTUS (GLARGINE) 1 /0.01ml (100units/ml) SC SCH (11:09)
--- NOTE | 2024-08-21 11:38 | DVHINCON2 ---
Date of service: Aug 21, 2024 Reason for Consultation Acute kidney injury History of Present Illness 73-year-old female with past medical history of kidney stones, hypertension, diabetes, chronic kidney disease sees Dr. Juarez in renal Clinic for approximately stage III renal function. Presents to the hospital complaining of two days of severe weakness and inability to walk. She reports severe loss of muscle strength. Her hospital course is notable for hypotension requiring pressors and CT imaging showing left hydronephrosis. Nephrology was consulted due to elevated creatinine level. Past Medical History as above Allergies: Coded Allergies: NO KNOWN ALLERGIES (Unverified , 08/20/24) Current Medications Current Medications Medications (Trade) Dose Ordered Sig/Justen Route PRN Reason Start Time Stop Time Status Last Admin Diagnostic Test (Pha) (Accu-Chek Comfort Curve T) 1 strip Q90MIN 08/20/24 12:00 08/21/24 10:58 Insulin Glargine (Lantus) 15 units DAILY SC 08/21/24 10:00 08/20/24 14:12 DC Piperacillin Sod/ Tazobactam Sod 100 ml @ 25 mls/hr Q8HR IV 08/20/24 14:00 08/20/24 13:26 DC Piperacillin Sod/ Tazobactam Sod 100 ml @ 25 mls/hr Q12HR IV 08/20/24 22:00 08/21/24 09:40 Potassium Chloride/Dextrose/ Sod Cl 1,000 ml @ 175 mls/hr Q5H43M IV 08/20/24 14:15 08/20/24 15:17 DC Insulin Human (Reg)/Sodium Chloride 100 ml @ 0.5 mls/hr Q24H IV 08/20/24 14:15 08/20/24 14:13 DC Dextrose 50 ml UD PRN IV SEE CURRENT ALGORITHM or SCALE 08/20/24 14:15 08/20/24 14:12 DC Diagnostic Test (Pha) (Accu-Chek Comfort Curve T) 1 strip Q90MIN 08/20/24 15:00 08/20/24 14:12 DC Insulin Glargine (Lantus) 15 units DAILY SC 08/21/24 10:00 08/21/24 11:09 Norepinephrine Bitartrate 250 ml @ 3.75 mls/hr Q24H IV 08/20/24 15:15 08/21/24 10:42 Sodium Chloride (Saline Lock Ns) 10 ml Q8HR IV 08/20/24 22:00 08/21/24 06:03 Docusate Sodium (Colace Capsule) 100 mg BIDPRN PRN PO FOR CONSTIPATION 08/20/24 17:00 Acetaminophen (Tylenol Tablet) 650 mg Q6HP PRN PO PAIN SCALE 1-3 OR TEMP>100.4 08/20/24 17:00 08/20/24 21:07 Acetaminophen/ Hydrocodone Bitart ([place] 5/325MG Tab) 1 tab Q4HP PRN PO MODERATE PAIN (4-6 PAIN SCALE) 08/20/24 17:00 08/21/24 05:53 Ondansetron HCl (Zofran) 4 mg Q4HP PRN IV NAUSEA / VOMITING 08/20/24 17:00 Vancomycin HCl 0 ml @ 0 mls/hr UD IV 08/21/24 01:00 Review of Systems Generalized pain and weakness H&P Exam Vital Signs/I&O Vital Sign Date Time Temp Pulse Resp B/P (MAP) Pulse Ox O2 Delivery O2 Flow Rate FiO2 08/21/24 10:42 81/38 08/21/24 08:34 81 08/21/24 06:45 99.0 17 97 210.2 08/21/24 06:00 Nasal Cannula* 2 28 Intake and Output 08/20/24 08/21/24 19:00 07:00 Intake Total 3800 ml 1071.00 ml Output Total 400 ml 1800 ml Balance 3400 ml -729.00 ml Intake Oral 60 ml IV Total 3800 ml 1011.00 ml Output Urine Total 400 ml 1800 ml Physical Exam Weak appearing elderly obese female In moderate to severe distress due to pain her pain is nonspecific and generalized. Regular rate and rhythm Abdomen is soft No pitting edema Masters catheter has clear yellow urine Labs/Diagnostic Data Labs/Diagnostic Data Laboratory Tests Test 08/21/24 10:58 08/21/24 09:01 08/21/24 07:53 08/21/24 07:15 Range/Units POC Glucose 164 H 186 H 166 H 70-106 mg/dl Lactic Acid Level 2.1 *H 0.4-2.0 mmol/L Test 08/21/24 06:02 08/21/24 04:32 08/21/24 03:56 08/21/24 02:52 Range/Units POC Glucose 170 H 225 H 209 H 70-106 mg/dl White Blood Count 34.0 #*H 4.4-10.8 10^3/uL Red Blood Count 5.19 4.0-5.20 10^6/uL Hemoglobin 15.1 # 12.2-16.2 g/dL Hematocrit 44.5 # 36.0-46.0 % Mean Corpuscular Volume 85.7 80.0-100.0 fL Mean Corpuscular Hemoglobin 29.1 28.0-32.0 pg Mean Corpuscular Hemoglobin Concent 33.9 32.0-36.0 g/dL Red Cell Distribution Width 14.4 H 11.8-14.3 % Platelet Count 49 L 140-450 10^3/uL Mean Platelet Volume 11.4 H 6.9-10.8 fL Neutrophils (%) (Auto) 37.0-80.0 % Lymphocytes (%) (Auto) 10.0-50.0 % Monocytes (%) (Auto) 0.0-12.0 % Basophils (%) (Auto) 0.0-2.0 % Neutrophils # (Auto) 1.6-8.6 10 ^3/uL Lymphocytes # (Auto) 0.4-5.4 10 ^3/uL Monocytes # (Auto) 0-1.3 10 ^3/uL Differential Total Cells Counted 100.0 100 Neutrophils % (Manual) 77 37.0-80.0 Band Neutrophils % (Manual) 7 Lymphocytes % (Manual) 4 L 10.0-50.0 Monocytes % (Manual) 10 0-12 Eosinophils % (Manual) 0 0-7 Basophils % (Manual) 0 0.0-2.0 Metamyelocytes % (manual) 0 Myelocytes % (Manual) 0 Promyelocytes % (Manual) 0 Blast Cells % (Manual) 2 Reactive Lymphocytes 0 Smudge Cells 2 /100 WBC Platelet Estimate Decreased Sodium Level 131 L 136-145 mmol/L Potassium Level 3.8 3.5-5.1 mmol/L Chloride Level 104 98-107 mmol/L Carbon Dioxide Level 16 L 20-31 mmol/L Anion Gap 11 5-15 Blood Urea Nitrogen 51 #H 9-23 mg/dL Creatinine 1.64 #H 0.550-1.02 mg/dL Glomerular Filtration Rate Calc 33 >90 mL/min BUN/Creatinine Ratio 31.1 H 10.0-20.0 Serum Glucose 217 H 74-106 mg/dL Calcium Level 8.6 L 8.7-10.4 mg/dL Magnesium Level 2.7 #H 1.6-2.6 mg/dL Total Bilirubin 0.4 0.2-1.0 mg/dL Aspartate Amino Transferase (AST) 54 H 13-40 U/L Alanine Aminotransferase (ALT) 27 7-40 U/L Alkaline Phosphatase 149 H 46-116 U/L Total Protein 5.4 L 5.7-8.2 g/dL Albumin 2.8 L 3.2-4.8 g/dL Test 08/21/24 01:27 08/20/24 23:50 08/20/24 22:40 08/20/24 21:12 Range/Units POC Glucose 185 H 185 H 215 H 209 H 70-106 mg/dl Test 08/20/24 19:49 08/20/24 18:22 08/20/24 16:36 08/20/24 15:17 Range/Units POC Glucose 207 H 220 H 195 H 182 H 70-106 mg/dl Test 08/20/24 14:45 08/20/24 14:36 08/20/24 13:03 08/20/24 12:51 Range/Units Influenza Type A Antigen Negative Negative Influenza Type B Antigen Negative Negative SARS-CoV-2 Antigen (Rapid) Negative NEGATIVE White Blood Count 25.0 H 4.4-10.8 10^3/uL Red Blood Count 4.47 4.0-5.20 10^6/uL Hemoglobin 12.9 # 12.2-16.2 g/dL Hematocrit 38.7 # 36.0-46.0 % Mean Corpuscular Volume 86.5 80.0-100.0 fL Mean Corpuscular Hemoglobin 28.8 28.0-32.0 pg Mean Corpuscular Hemoglobin Concent 33.3 32.0-36.0 g/dL Red Cell Distribution Width 14.3 11.8-14.3 % Platelet Count 50 L 140-450 10^3/uL Mean Platelet Volume 11.5 H 6.9-10.8 fL Neutrophils (%) (Auto) 37.0-80.0 % Lymphocytes (%) (Auto) 10.0-50.0 % Monocytes (%) (Auto) 0.0-12.0 % Basophils (%) (Auto) 0.0-2.0 % Neutrophils # (Auto) 1.6-8.6 10 ^3/uL Lymphocytes # (Auto) 0.4-5.4 10 ^3/uL Monocytes # (Auto) 0-1.3 10 ^3/uL Differential Total Cells Counted 100.0 100 Neutrophils % (Manual) 80 37.0-80.0 Band Neutrophils % (Manual) 8 Lymphocytes % (Manual) 2 L 10.0-50.0 Monocytes % (Manual) 10 0-12 Eosinophils % (Manual) 0 0-7 Basophils % (Manual) 0 0.0-2.0 Metamyelocytes % (manual) 0 Myelocytes % (Manual) 0 Promyelocytes % (Manual) 0 Blast Cells % (Manual) 0 Reactive Lymphocytes 0 Platelet Estimate Decreased Large Platelets Few [place] Cells Few Prothrombin Time 13.5 H 9.3-11.8 sec Prothrombin Time INR 1.31 H 0.9-1.15 Sodium Level 130 #L 136-145 mmol/L Potassium Level 3.7 3.5-5.1 mmol/L Chloride Level 101 98-107 mmol/L Carbon Dioxide Level 16 L 20-31 mmol/L Anion Gap 13 5-15 Blood Urea Nitrogen 75 #H 9-23 mg/dL Creatinine 2.37 H 0.550-1.02 mg/dL Glomerular Filtration Rate Calc 21 >90 mL/min BUN/Creatinine Ratio 31.6 H 10.0-20.0 Serum Glucose 217 H 74-106 mg/dL Lactic Acid Level 2.8 *H 2.7 *H 0.4-2.0 mmol/L Calcium Level 7.8 L 8.7-10.4 mg/dL Total Bilirubin 0.2 0.2-1.0 mg/dL Aspartate Amino Transferase (AST) 35 13-40 U/L Alanine Aminotransferase (ALT) 24 7-40 U/L Alkaline Phosphatase 83 46-116 U/L Troponin I High Sensitivity 10 15 </=34 ng/L Total Protein 4.2 L 5.7-8.2 g/dL Albumin 2.3 L 3.2-4.8 g/dL Urine Color Colorless Yellow Urine Clarity Turbid H Clear Urine pH 5.0 5.0-9.0 Urine Specific [place] 1.013 1.001-1.035 Urine Protein 1+ H Negative Urine Ketones Negative Negative Urine Blood 3+ H Negative /uL Urine Nitrite Negative Negative Urine Bilirubin Negative Negative Urine Urobilinogen Normal Negative mg/dL Urine Leukocyte Esterase 3+ Negative /uL Urine RBC 4 0 - 4 /hpf Urine Microscopic WBC 15 H 0-5 /HPF Urine Squamous Epithelial Cells None seen <5 /hpf Urine Bacteria Many H None Seen /hpf Urine Mucus Many None Seen Urine Glucose 4+ H Normal mg/dL Test 08/20/24 12:01 08/20/24 11:48 Range/Units Blood Gas Specimen Type Arterial Blood Gas Sample Site Right brachial Blood Gas Patient Temperature 37.0 Arterial Blood Date Drawn [id number] Arterial Blood pH 7.274 L 7.350-7.450 Arterial Blood Partial Pressure CO2 25.8 L 32.0-45.0 mmHg Arterial Blood Partial Pressure O2 68.5 L 83.0-108.0 mmHg Arterial Blood HCO3 11.7 L 21.0-28.0 mmol/L Arterial Blood Oxygen Saturation 91.7 L 94.0-98.0 % Arterial Blood Base Excess -13.2 L -2.0-3.0 mmol/L Arterial Blood Oxyhemoglobin 91.1 L 94.0-98.0 % Arterial Blood Carboxyhemoglobin 0.1 L 0.5-1.5 % Arterial Blood Methemoglobin 0.6 0.0-1.5 % Bright Test N/a Blood Gas Total Hemoglobin 15.20 12.0-16.0 g/dL Blood Gas Modality Room air FiO2 % 21.0 White Blood Count 30.0 H 4.4-10.8 10^3/uL Red Blood Count 5.38 H 4.0-5.20 10^6/uL Hemoglobin 15.6 12.2-16.2 g/dL Hematocrit 47.9 H 36.0-46.0 % Mean Corpuscular Volume 89.0 80.0-100.0 fL Mean Corpuscular Hemoglobin 29.0 28.0-32.0 pg Mean Corpuscular Hemoglobin Concent 32.5 32.0-36.0 g/dL Red Cell Distribution Width 14.8 H 11.8-14.3 % Platelet Count 49 L 140-450 10^3/uL Mean Platelet Volume 11.6 H 6.9-10.8 fL Neutrophils (%) (Auto) 37.0-80.0 % Lymphocytes (%) (Auto) 10.0-50.0 % Monocytes (%) (Auto) 0.0-12.0 % Basophils (%) (Auto) 0.0-2.0 % Neutrophils # (Auto) 1.6-8.6 10 ^3/uL Lymphocytes # (Auto) 0.4-5.4 10 ^3/uL Monocytes # (Auto) 0-1.3 10 ^3/uL Differential Total Cells Counted 100.0 100 Neutrophils % (Manual) 78 37.0-80.0 Band Neutrophils % (Manual) 5 Lymphocytes % (Manual) 9 L 10.0-50.0 Monocytes % (Manual) 8 0-12 Eosinophils % (Manual) 0 0-7 Basophils % (Manual) 0 0.0-2.0 Metamyelocytes % (manual) 0 Myelocytes % (Manual) 0 Promyelocytes % (Manual) 0 Blast Cells % (Manual) 0 Reactive Lymphocytes 0 Platelet Estimate Decreased Sodium Level 121 L 136-145 mmol/L Potassium Level 5.4 H 3.5-5.1 mmol/L Chloride Level 94 L 98-107 mmol/L Carbon Dioxide Level 12 L 20-31 mmol/L Anion Gap 15 5-15 Blood Urea Nitrogen 54 H 9-23 mg/dL Creatinine 2.87 H 0.550-1.02 mg/dL Glomerular Filtration Rate Calc 17 >90 mL/min BUN/Creatinine Ratio 18.8 10.0-20.0 Serum Glucose 356 H 74-106 mg/dL Serum Osmolality 306 H 278-298 mOsm/kg Calcium Level 9.7 8.7-10.4 mg/dL Phosphorus Level 6.2 H 2.4-5.1 mg/dL Magnesium Level 3.7 H 1.6-2.6 mg/dL Total Bilirubin 0.4 0.2-1.0 mg/dL Aspartate Amino Transferase (AST) 57 H 13-40 U/L Alanine Aminotransferase (ALT) 33 7-40 U/L Alkaline Phosphatase 134 H 46-116 U/L Troponin I High Sensitivity 16 </=34 ng/L Total Protein 6.2 5.7-8.2 g/dL Albumin 3.2 3.2-4.8 g/dL Beta-Hydroxybutyric Acid 2.865 H < 0.4 mmol/L Assessment Acute kidney injury multifactorial in the setting of volume depletion and urinary obstruction Chronic kidney disease stage 3; sees Dr. Juarez Septic shock in the setting of urinary tract infection Left obstructing kidney stone with moderate hydronephrosis Metabolic acidosis Resume IV fluid hydration maintenance fluid at 100 cc/hour Patient is status post IV fluid boluses Currently on Levophed to maintain mean arterial pressure greater than 65 Strict Is&Os with current Masters catheter Urology saw patient recommended percutaneous nephrostomy tube of the left kidney IV antibiotics for treatment of urinary infection sepsis recommend with renal dosing Continue with electrolyte replacement Guarded prognosis Plan discussed with: Patient BRIANNA BOLANOS MD Aug 21, 2024 11:38
[2024-08-21] MEDS ORDERED: DEXTROSE (50%) 50ML SYRG IV PRN (12:00)
--- NOTE | 2024-08-21 12:20 | DVHPN2 ---
Subjective She continues to have diffuse body aches Reviewed: H&P Changes from previous H/P or p: No Changes General: Per HPI Objective Vitals Vital Signs Date Time Temp Pulse Resp B/P (MAP) Pulse Ox O2 Delivery O2 Flow Rate FiO2 08/21/24 10:42 81/38 08/21/24 08:34 81 08/21/24 06:45 99.0 17 97 210.2 08/21/24 06:00 Nasal Cannula* 2 28 Intake/Output Intake and Output 08/21/24 07:00 Intake Total 4871.00 ml Output Total 2200 ml Balance 2671.00 ml Intake Oral 60 ml IV Total 4811.00 ml Output Urine Total 2200 ml Exam Generally-73 years old woman, well nourished well developed. mild distress HEENT-atraumatic normocephalic Heart-sinus tachycardic Lungs the auscultate bilaterally, check anemia Abdomen soft, mild tender, nondistended Musculoskeletal-pedal edema, a cyanosis Neuro-Awake, alert, confused, answer some questions. strength and sensation intact. Medications Current Medications Medications Dose Ordered Sig/Justen Route Start Time Stop Time Status Last Admin Dose Admin Piperacillin Sod/ Tazobactam Sod 100 ml @ 25 mls/hr Q12HR IV 08/20/24 22:00 08/21/24 09:40 25 MLS/HR Insulin Glargine 15 units DAILY SC 08/21/24 10:00 08/21/24 11:09 15 UNITS Norepinephrine Bitartrate 250 ml @ 3.75 mls/hr Q24H IV 08/20/24 15:15 08/21/24 10:42 37.5 MLS/HR Sodium Chloride 10 ml Q8HR IV 08/20/24 22:00 08/21/24 06:03 10 ML Docusate Sodium 100 mg BIDPRN PRN PO 08/20/24 17:00 Acetaminophen 650 mg Q6HP PRN PO 08/20/24 17:00 08/20/24 21:07 650 MG Acetaminophen/ Hydrocodone Bitart 1 tab Q4HP PRN PO 08/20/24 17:00 08/21/24 05:53 1 TAB Ondansetron HCl 4 mg Q4HP PRN IV 08/20/24 17:00 Lactated Ringer's 1,000 ml @ 100 mls/hr Q10H IV 08/21/24 11:45 Diagnostic Test (Pha) 1 strip IQ4HR 08/21/24 12:00 Insulin Human Regular IQ4HR SC 08/21/24 12:00 Dextrose 50 ml UD PRN IV 08/21/24 12:00 Linezolid 300 ml @ 150 mls/hr Q12HR IV 08/21/24 22:00 Cefepime HCl 50 ml @ 12.5 mls/hr Q12HR IV 08/21/24 22:00 UNV Laboratory Results Laboratory Tests 08/21/24 03:56 Chemistry Test 08/20/24 14:36 08/21/24 03:56 Albumin 2.3 g/dL (3.2-4.8) L 2.8 g/dL (3.2-4.8) L Calcium Level 7.8 mg/dL (8.7-10.4) L 8.6 mg/dL (8.7-10.4) L Total Protein 4.2 g/dL (5.7-8.2) L 5.4 g/dL (5.7-8.2) L Magnesium Level 2.7 mg/dL (1.6-2.6) #H Coagulation Test 08/20/24 14:36 Prothrombin Time 13.5 sec (9.3-11.8) H Prothrombin Time INR 1.31 (0.9-1.15) H LFT Test 08/20/24 14:36 08/21/24 03:56 Alanine Aminotransferase (ALT) 24 U/L (7-40) 27 U/L (7-40) Alkaline Phosphatase 83 U/L (46-116) 149 U/L (46-116) H Aspartate Amino Transferase (AST) 35 U/L (13-40) 54 U/L (13-40) H Total Bilirubin 0.2 mg/dL (0.2-1.0) 0.4 mg/dL (0.2-1.0) Urinalysis Test 08/20/24 12:51 Urine Color Colorless (Yellow) Urine Clarity Turbid (Clear) H Urine pH 5.0 (5.0-9.0) Urine Specific [place] 1.013 (1.001-1.035) Urine Protein 1+ (Negative) H Urine Ketones Negative (Negative) Urine Blood 3+ /uL (Negative) H Urine Nitrite Negative (Negative) Urine Bilirubin Negative (Negative) Urine Urobilinogen Normal mg/dL (Negative) Urine Leukocyte Esterase 3+ /uL (Negative) Urine RBC 4 /hpf (0 - 4) Urine Microscopic WBC 15 /HPF (0-5) H Urine Squamous Epithelial Cells None seen /hpf (<5) Urine Bacteria Many /hpf (None Seen) H Urine Mucus Many (None Seen) Urine Glucose 4+ mg/dL (Normal) H Microbiology Microbiology Date/Time Source Procedure Growth Status 08/20/24 13:03 Blood Blood Culture - Preliminary Resulted Labs and/or images reviewed: Labs reviewed by me, Image(s) reviewed by me Assessment/Plan Assessment/Plan 08/21 the habits septic shock status post 3 L and still requiring more. Severe diffuse body aches. Concern for on vitamin-D shock versus rhabdo. She has left stone with hydro, obstructed, with infection, Patient needs urgent urological intervention,. Urology is on board plans for RR nephrostomy tube tomorrow. Patient is on broad-spectrum vanc Zosyn but also has severe AZUCENA BM nephrology following and giving more fluids. We will deescalate antibiotics to cefepime 2 Keep broad-spectrum also to remove any strain from kidneys, unable to do linezolid. Can try doxycycline.. Patient was also DKA/early DKA with the improvement of sugars and now on basal/sliding scale to maintain. Patient on Levophed we will continue with the goal map more than 65. Patient will likely need fluids and Levophed support until source control with IR tomorrow nephrostomy tube. Urology aware of septic picture repeating ultrasound renal which shows [id number] hydronephrosis, defer further intervention need to Urology. DKA/early DKA, resolved Septic shock likely due to urinary tract infection, requiring vasopressor support Lactic acidosis Anion gap metabolic acidosis Severe hyponatremia, pseudo due to hyperglycemia Severe dehydration Severe thrombocytopenia likely related to septic picture AZUCENA Vmn on CKD plan: -Status post 3 L, continue maintenance fluids -broad-spectrum vanc Zosyn deescalate to cefepime - can not do linezolid given thrombocytopenia we will try doxycycline -urology following planned for IR tomorrow nephrostomy tube for source control -continue Levophed to maintain map more than 65, fluids going -AZUCENA nmv nephrology consulted and following appreciate recs -We will trial baclofen to see if we can help with the body aches, continue pain control with [place]/morphine PRN - diffuse post body aches, we will check CPK Plan discussed with: Patient My Orders Orders - ARIADNA LEMUS MD Procedure Category Date Status Time Glucose Blood PHA 08/21/24 In Process (Accu-Chek Comfort 12:00 Insulin R (Human) PHA 08/21/24 In Process (Insulin R) 12:00 Dextrose 50% Syringe PHA 08/21/24 In Process 12:00 Creatine Kinase LAB 08/21/24 In Process 11:51 Linezolid 600mg/300ml PHA 08/21/24 In Process (Zyvox) 22:00 Clear Liq Diet DIET 08/21/24 Transmitted Lunch Cefepime 2gm/50ml Ns PHA 08/21/24 Logged (Maxipime 2gm/50ml) 22:00 Date of Service: Aug 21, 2024 Billing Provider: ARIADNA LEMUS MD Common Visit Codes: 92309-[id number] CARE 30-74 MIN ARIADNA LEMUS MD Aug 21, 2024 12:20
[2024-08-21] MEDS: LACTATED RINGER'S 1,000 ML IV SCH (12:22)
[2024-08-21] MEDS: ACCU-CHEK COMFORT CURVE STRIP VI SCH (12:33)
[2024-08-21] MEDS: InsuLIN REG 1unit/0.01ml Soln (100units/ml) SC SCH (12:41)
[2024-08-21] MEDS: LACTATED RINGER'S 1,000 ML IV ONE (13:01)
[2024-08-21 13:06] LABS: Base Excess -10.3 mmol/L (-2.0-3.0)
[2024-08-21] MEDS: BACLOFEN 10 MG TAB PO ONE (14:47)
--- NOTE | 2024-08-21 14:47 | DVH ---
US KIDNEY HISTORY: hydronephrosis COMPARISON: 08/20/24 TECHNIQUE: Transverse and longitudinal grayscale and color doppler images were obtained of the kidney s and bladder. FINDINGS: Right kidney: Size: 8.7 cm Cortical thickness: Normal Echogenicity: Normal Stones: None Masses: None Hydronephrosis: None Ureters: Not well visualized. Other: None Left kidney: Size: 8.8 cm Cortical thickness: Normal Echogenicity: Normal Stones: None Masses: None Hydronephrosis: Yes Ureters: Not well visualized. Other: None Bladder: Normal Other: None. IMPRESSION: Left hydronephrosis visualized, mild to moderate.
[2024-08-21] MEDS: CEFEPIME 2GM/50ML NS 50 ML IV SCH (16:30)
[2024-08-21] MEDS: BACLOFEN 10 MG TAB PO PRN (19:51)
[2024-08-21] MEDS: DOXYCYCLINE 100MG/100ML 100 ML IV SCH (21:09)
[2024-08-21] MEDS ORDERED: LINEZOLID 600MG/300ML 300 ML IV SCH (22:00)
[2024-08-21] MEDS: VASOPRESSIN 20 UNITS in SODIUM CHL 0.9% 99 ML IV SCH (23:52)
[2024-08-22] VITALS (63 sets, daily range): BP systolic 96–155; BP diastolic 39–87; PULSE 61–88; RESP 11–29; TEMP 97.2–98.8; O2SAT 94–100
[2024-08-22] MEDS: PHENYLEPHRINE INJ 80 MG in SODIUM CHL 0.9% 242 ML IV SCH (00:17)
[2024-08-22 05:44] LABS: Hemoglobin 14.4 g/dL (12.2-16.2); Platelet Count (auto) 53 10^3/uL (140-450)
[2024-08-22 05:46] LABS: Hematocrit 42.5 % (36.0-46.0); Mean Corpuscular Hemoglobin 28.9 pg (28.0-32.0); Mean Corpuscular Hgb Conc. 33.8 g/dL (32.0-36.0); Mean Corpuscular Volume 85.4 fL (80.0-100.0); Red Blood Cells 4.98 10^6/uL (4.0-5.20); Red Cell Distribution Width 14.5 % (11.8-14.3)
[2024-08-22 05:50] LABS: White Blood Cell 32.8 10^3/uL (4.4-10.8)
[2024-08-22 05:52] LABS: Band Neutrophils % (manual) 0; Basophils % (manual) 0 (0.0-2.0); Blast Cells 0; Eosinophils % (manual) 0 (0-7); Metamyelocytes % 0; Myelocytes % 0; Promyelocytes % 0; Reactive Lymphocytes 0
[2024-08-22 06:06] LABS: Alanine Aminotransferase 21 U/L (7-40); Anion Gap 12 (5-15); BUN/Creatinine Ratio 29.5 (10.0-20.0); Magnesium 2.5 mg/dL (1.6-2.6); Potassium 3.8 mmol/L (3.5-5.1); Sodium 141 mmol/L (136-145)
[2024-08-22 06:07] LABS: Albumin 2.6 g/dL (3.2-4.8); Alkaline Phosphatase 145 U/L (46-116); Aspartate Aminotransferase 44 U/L (13-40); Bilirubin, Total 0.4 mg/dL (0.2-1.0); Blood Urea Nitrogen 33 mg/dL (9-23); Carbon Dioxide 17 mmol/L (20-31); Chloride 112 mmol/L (98-107); Glucose 213 mg/dL (74-106); Total Protein 5.1 g/dL (5.7-8.2)
[2024-08-22 06:51] LABS: Lymphocytes % (manual) 1 (10.0-50.0); Monocytes % (manual) 5 (0-12)
[2024-08-22 06:52] LABS: Platelet Estimate Decreased
[2024-08-22] MEDS: MORPHINE SULFATE INJ 2 MG/ml SYRG IV ONE ×2 (09:39→15:41)
[2024-08-22] MEDS: ONDANSETRON HCL 4 MG/2 ML VIAL IV PRN (09:39)
--- NOTE | 2024-08-22 10:11 | DVHPN2 ---
Progress Note - Dictate Date Seen: Aug 22, 2024 Medical Necessity Reason Pt with a Central, PICC or Fol: Yes The following are medically ne: Pedroza Catheter Reason for pedroza catheter: Bladder Retention/Obstruc, Strict I&O Subjective whole body hurts vital signs Vital Sign Date Time Temp Pulse Resp B/P (MAP) Pulse Ox O2 Delivery O2 Flow Rate FiO2 08/22/24 09:39 77 20 121/61 08/22/24 09:15 98.8 98 209.8 08/22/24 08:00 Nasal Cannula* 2 28 Total Intake and Output 08/21/24 08/21/24 08/22/24 15:00 23:00 07:00 Intake Total 1871.00 ml 2042.5 ml 975.0 ml Output Total 2050 ml 2250 ml Balance 1871.00 ml -7.5 ml -1275.0 ml medications Current Medications Medications Dose Ordered Sig/Justen Route Start Time Stop Time Status Last Admin Dose Admin Insulin Glargine 15 units DAILY SC 08/21/24 10:00 08/21/24 11:09 15 UNITS Norepinephrine Bitartrate 250 ml @ 3.75 mls/hr Q24H IV 08/20/24 15:15 08/22/24 07:24 41.25 MLS/HR Sodium Chloride 10 ml Q8HR IV 08/20/24 22:00 08/22/24 05:30 10 ML Docusate Sodium 100 mg BIDPRN PRN PO 08/20/24 17:00 Acetaminophen 650 mg Q6HP PRN PO 08/20/24 17:00 08/20/24 21:07 650 MG Acetaminophen/ Hydrocodone Bitart 1 tab Q4HP PRN PO 08/20/24 17:00 08/21/24 19:51 1 TAB Ondansetron HCl 4 mg Q4HP PRN IV 08/20/24 17:00 08/22/24 09:39 4 MG Lactated Ringer's 1,000 ml @ 100 mls/hr Q10H IV 08/21/24 11:45 08/21/24 21:45 100 MLS/HR Diagnostic Test (Pha) 1 strip IQ4HR 08/21/24 12:00 08/22/24 08:16 1 STRIP Insulin Human Regular IQ4HR SC 08/21/24 12:00 08/22/24 08:30 3 UNITS Dextrose 50 ml UD PRN IV 08/21/24 12:00 Cefepime HCl 50 ml @ 12.5 mls/hr Q12H IV 08/21/24 16:00 08/22/24 04:03 12.5 MLS/HR Baclofen 5 mg Q8HP PRN PO 08/21/24 12:30 08/22/24 05:26 5 MG Phenylephrine HCl 80 mg/Sodium Chloride 250 ml @ 7.5 mls/hr Q24H IV 08/21/24 12:45 Vasopressin 20 units/Sodium Chloride 100 ml @ 9 mls/hr Q11H7M IV 08/21/24 12:45 Doxycycline Hyclate 100 ml @ 50 mls/hr Q12H IV 08/21/24 19:45 08/22/24 08:15 50 MLS/HR objective ill appearing moderate distress laboratory and microbiology Laboratory Tests 08/22/24 05:07 Test 08/22/24 05:07 Range/Units Serum Glucose 213 H 74-106 mg/dL Problem List Bacteremia 1 cm distal obstructing stone, s/p PNT Assessment/Plan pending PCN placement continue medical management of other conditions Obtain urine culture Problems(with codes): (1) Dehydration (2) Acute renal failure (3) DKA (diabetic ketoacidosis) (4) Hyperosmolar syndrome (5) Pseudohyponatremia (6) Bacteremia (7) Sepsis Prognosis guarded Plan discussed with: Patient, Other Total Time (mins): 22 [place] NP Aug 22, 2024 10:11 HILARIO LISA MD Aug 23, 2024 07:49
[2024-08-22] MEDS ORDERED: DEXTROSE (50%) 50ML SYRG IV PRN (14:00)
--- NOTE | 2024-08-22 14:52 | DVHPN2 ---
Progress Note Date Seen: Aug 22, 2024 Medical Necessity Reason Pt with a Central, PICC or Fol: Yes The following are medically ne: Pedroza Catheter Reason for pedroza catheter: Bladder Retention/Obstruc, Strict I&O Subjective Patient reports: Other Review of Systems: Deferred Objective vital signs Vital Sign Date Time Temp Pulse Resp B/P (MAP) Pulse Ox O2 Delivery O2 Flow Rate FiO2 08/22/24 13:36 66 17 99/49 (66) 99 08/22/24 10:50 97.2 97.2 08/22/24 10:00 Nasal Cannula* 2 28 Total Intake and Output 08/21/24 08/21/24 08/22/24 15:00 23:00 07:00 Intake Total 1871.00 ml 2042.5 ml 975.0 ml Output Total 2050 ml 2250 ml Balance 1871.00 ml -7.5 ml -1275.0 ml medications Current Medications Medications Dose Ordered Sig/Justen Route Start Time Stop Time Status Last Admin Dose Admin Insulin Glargine 15 units DAILY SC 08/21/24 10:00 08/21/24 11:09 15 UNITS Norepinephrine Bitartrate 250 ml @ 3.75 mls/hr Q24H IV 08/20/24 15:15 08/22/24 07:24 41.25 MLS/HR Sodium Chloride 10 ml Q8HR IV 08/20/24 22:00 08/22/24 05:30 10 ML Docusate Sodium 100 mg BIDPRN PRN PO 08/20/24 17:00 Acetaminophen 650 mg Q6HP PRN PO 08/20/24 17:00 08/20/24 21:07 650 MG Acetaminophen/ Hydrocodone Bitart 1 tab Q4HP PRN PO 08/20/24 17:00 08/21/24 19:51 1 TAB Ondansetron HCl 4 mg Q4HP PRN IV 08/20/24 17:00 08/22/24 09:39 4 MG Cefepime HCl 50 ml @ 12.5 mls/hr Q12H IV 08/21/24 16:00 08/22/24 04:03 12.5 MLS/HR Baclofen 5 mg Q8HP PRN PO 08/21/24 12:30 08/22/24 05:26 5 MG Phenylephrine HCl 80 mg/Sodium Chloride 250 ml @ 7.5 mls/hr Q24H IV 08/21/24 12:45 Vasopressin 20 units/Sodium Chloride 100 ml @ 9 mls/hr Q11H7M IV 08/21/24 12:45 Diagnostic Test (Pha) 1 strip Q6HR 08/22/24 18:00 UNV Insulin Human Regular Q6HR SC 08/22/24 18:00 UNV Dextrose 50 ml UD PRN IV 08/22/24 14:00 UNV Examination: GENERAL:Abnormal, MSK:Normal, NEURO:Abnormal laboratory and microbiology Laboratory Tests 08/22/24 05:07 Test 08/22/24 05:07 Range/Units Serum Glucose 213 H 74-106 mg/dL Microbiology Date/Time Source Procedure Growth Status 08/20/24 13:03 Blood Blood Culture - Preliminary Streptococcus Group B Resulted Problem List/Assessment/Plan Problem List/Assessment/Plan Acute kidney injury multifactorial in the setting of volume depletion and urinary obstruction Chronic kidney disease stage 3; sees Dr. Juarez Septic shock in the setting of urinary tract infection Left obstructing kidney stone with moderate hydronephrosis Metabolic acidosis recs pcnt today better renal function Plan discussed with: Patient SANTOS BREWER MD Aug 22, 2024 14:52
[2024-08-22 16:24] LABS: Basophils # (auto) 0.2 10 ^3/uL (0-0.2); Basophils % (auto) 0.7 % (0.0-2.0); Eosinophils # (auto) 0 10 ^3/uL (0-0.8); Eosinophils % (auto) 0.1 % (0.0-7.0); Hemoglobin 14.3 g/dL (12.2-16.2); Lymphocytes # (auto) 1.3 10 ^3/uL (0.4-5.4); Lymphocytes % (auto) 4.4 % (10.0-50.0); Mean Corpuscular Hgb Conc. 32.5 g/dL (32.0-36.0); Mean Corpuscular Volume 89.2 fL (80.0-100.0); Monocytes # (auto) 1.8 10 ^3/uL (0-1.3); Monocytes % (auto) 6.2 % (0.0-12.0); Neutrophils # (auto) 26.1 10 ^3/uL (1.6-8.6); Neutrophils % (auto) 88.6 % (37.0-80.0); Nucleated Red Blood Cells % 0.3 %; Red Blood Cells 4.93 10^6/uL (4.0-5.20); Red Cell Distribution Width 16.2 % (11.8-14.3); White Blood Cell 29.4 10^3/uL (4.4-10.8)
[2024-08-22 16:25] LABS: Platelet Count (auto) 48 10^3/uL (140-450)
[2024-08-22] MEDS: LACTATED RINGER'S 1,000 ML IV SCH (16:45)
[2024-08-22] MEDS: LACTATED RINGER'S 1,000 ML IV ONE (16:45)
--- NOTE | 2024-08-22 16:52 | DVHPNRES ---
Progress Note Date Seen: Aug 22, 2024 Resident Creating Document: ARIEL BAILON RESIDENT Medical Necessity Reason Pt with a Central, PICC or Fol: Yes The following are medically ne: Pedroza Catheter Reason for pedroza catheter: Bladder Retention/Obstruc, Strict I&O Subjective Review of Systems This is a 73 year old female with PMHx DM, CHF, HTN, and pacemaker presents to ED via EMS with chief complaint general weakness x6 days with malaise, fatigue, and body aches. PAST MEDICAL HISTORY: CHF, DM, HTN Surgical History: Pacemaker Social History: Smoker: Non-Smoker. Alcohol: Denies ETOH Use. Drugs: Denies Drug Use. Lives In: Home Upon EMS arrival on scene, findings were: BS 572, BP 58/35, weak pulse, SpO2 93% on RA, good capillary refill, and good mentation. Per pt, BS was 274 yesterday and she is compliant with her medications. Pt denies eating sugary foods and states she has been urinating many times. Pt reports drinking 3-4 water bottles per day. No other signs/symptoms or history reported. Patient was seen and examined at bedside. He has fluctuations on her mentation, oriented x1, somnolent, GCS: 14 She remains on Levophed at eight he continues to be on broad-spectrum antibiotics, cefepime and doxycycline. Her WBC count came down to 32k. UA shows UTI, pending urine culture, blood cultures growing a Streptococcus. previous imaging revealed left-sided hydro ureteral nephrosis, patient has had a nephrostogram today, nephrostomy tubes were placed. Patient continued to complain about generalized pain, she was placed on IV pain medication. Objective vital signs Vital Sign Date Time Temp Pulse Resp B/P (MAP) Pulse Ox O2 Delivery O2 Flow Rate FiO2 08/22/24 15:41 69 16 123/52 08/22/24 13:36 99 08/22/24 10:50 97.2 97.2 08/22/24 10:00 Nasal Cannula* 2 28 Total Intake and Output 08/21/24 08/21/24 08/22/24 15:00 23:00 07:00 Intake Total 1871.00 ml 2042.5 ml 975.0 ml Output Total 2050 ml 2250 ml Balance 1871.00 ml -7.5 ml -1275.0 ml medications Current Medications Medications Dose Ordered Sig/Justen Route Start Time Stop Time Status Last Admin Dose Admin Insulin Glargine 15 units DAILY SC 08/21/24 10:00 08/21/24 11:09 15 UNITS Norepinephrine Bitartrate 250 ml @ 3.75 mls/hr Q24H IV 08/20/24 15:15 08/22/24 07:24 41.25 MLS/HR Sodium Chloride 10 ml Q8HR IV 08/20/24 22:00 08/22/24 15:20 10 ML Docusate Sodium 100 mg BIDPRN PRN PO 08/20/24 17:00 Acetaminophen 650 mg Q6HP PRN PO 08/20/24 17:00 08/20/24 21:07 650 MG Acetaminophen/ Hydrocodone Bitart 1 tab Q4HP PRN PO 08/20/24 17:00 08/21/24 19:51 1 TAB Ondansetron HCl 4 mg Q4HP PRN IV 08/20/24 17:00 08/22/24 09:39 4 MG Cefepime HCl 50 ml @ 12.5 mls/hr Q12H IV 08/21/24 16:00 08/22/24 04:03 12.5 MLS/HR Baclofen 5 mg Q8HP PRN PO 08/21/24 12:30 08/22/24 05:26 5 MG Phenylephrine HCl 80 mg/Sodium Chloride 250 ml @ 7.5 mls/hr Q24H IV 08/21/24 12:45 Vasopressin 20 units/Sodium Chloride 100 ml @ 9 mls/hr Q11H7M IV 08/21/24 12:45 Diagnostic Test (Pha) 1 strip Q6HR 08/22/24 18:00 Insulin Human Regular Q6HR SC 08/22/24 18:00 Dextrose 50 ml UD PRN IV 08/22/24 14:00 Examination Physical examination as below: General: Awake, somnolent, mild distress due to generalized pain HEENT: Head is normocephalic and atraumatic. Pupils are equal, round, and reactive to light. Extraocular muscles are intact. No nasal discharge. No facial trauma. Intraoral exam shows moist mucous membranes with no tonsillar enlargement or exudate. Neck: Supple with no cervical lymphadenopathy. Heart: Regular rate without murmur, rub, or gallop. Lungs: Equal breath sounds bilaterally with no wheezing, rales, or rhonchi. There is no chest wall tenderness or instability. Abdomen: No external sign of injury. Bowel sounds are present. Abdomen is soft, nontender. No rebound, no guarding, no rigidity. Extremities: Strong peripheral pulses. There is no clubbing, no cyanosis, and no edema. Skin: No rash. Neurologic: Cranial nerves II-XII intact without motor, sensory, or cerebellar deficit, no asterixis. laboratory and microbiology Laboratory Tests 08/22/24 16:03 08/22/24 05:07 Test 08/22/24 05:07 Range/Units Serum Glucose 213 H 74-106 mg/dL Microbiology Date/Time Source Procedure Growth Status 08/20/24 13:03 Blood Blood Culture - Preliminary Streptococcus Group B Resulted Labs and/or images reviewed: Labs reviewed by me, Image(s) reviewed by me Problem List/Assessment/Plan Problem List/Assessment/Plan Neurology #Metabolic encephalopathy, likely due to septic shock monitor Cardiovascular #H/o CHF #H/o Hypertension #H/o pacemaker Pending echocardiogram monitor gentle ivf Pulmonology #Acute hypoxic respiratory failure #atelectasis continue NC at 2lts, maintain sat above 92% Nephrology #AZUCENA due to VMN on CKD #Elevated anion gap metabolic acidosis #Hydroureteronpehrois, left s/p nephrostomy tube placement #Nephrolithiasis Urologist following, pending ESWL once stable 1cm stone in distal ureter Pain meds as needed Endocrinology #Type 2 diabetes #Early DKA, resolved Monitor SSI mild Lantus 15U qd Gastroenterology #Transaminitis, likely due to septic shock monitor Nutrition: NPO due to encephalopathy Hematology and Oncology #Severe thrombocytopenia likely consumption from sepsis Monitor Infectious Disease #Septic shock due to UTI #Bacteremia, growing Streptococcus #Lactic acidosis due to above Discontinue cefepime and doxycycline Start Merrem IV Pending urine culture Repeat blood cultures IVF given, continue maintenance fluids Dermatology x DVT ppx lovenox PUD ppx x Drips levophed Lines right femoral TLC Goals of care were discussed for 34 minutes. FULL CODE. Time spent outside of procedures 88 mins Case was discussed with Dr. Valdes Plan discussed with: Other (RN) My Orders My Orders Orders - ARIEL BAILON RESIDENT Procedure Category Date Status Time Blood Culture MANISHA 08/22/24 In Process 13:55 Urine Bacterial MANISHA 08/22/24 Logged Culture 13:55 Glucose Blood PHA 08/22/24 In Process (Accu-Chek Comfort 18:00 Insulin R (Human) PHA 08/22/24 In Process (Insulin R) 18:00 Dextrose 50% Syringe PHA 08/22/24 In Process 14:00 Mrsa Screen MANISHA 08/22/24 Logged 15:45 Lactated Ringers Lr PHA 08/22/24 Verified 16:45 Lactated Ringers Lr PHA 08/22/24 Verified 16:45 Morphine Sulfate PHA 08/22/24 Verified Injection 16:45 Diphenhdramine PHA 08/22/24 Verified Injection (Benadryl 16:45 Meropenem 1gm Ivpb X PHA 08/22/24 Verified ONE 16:45 Meropenem 1gm PHA 08/22/24 Verified Q8h(Gfr>50) 22:00 Echo 2d Mode Cardiac US 08/22/24 Verified DOP 16:44 Date of Service: Aug 22, 2024 Billing Provider: GONZALO VALDES MD Common Visit Codes: 13406-[id number] CARE 30-74 MIN, 03105-[id number] CARE-EACH +30MIN ARIEL BAILON Aug 22, 2024 16:51 GONZALO VALDES MD Aug 23, 2024 14:55
[2024-08-22] MEDS: LIDOCAINE 2%HCL (LOCAL ANESTH.) INJ 20ML MDV ONE (17:12)
[2024-08-22] MEDS: diphenhdrAMINE HCL 50 MG/1 ML VL IV ONE (18:13)
[2024-08-22] MEDS: MEROPENEM 1GM IVPB 50 ML IV ONE (18:13)
[2024-08-22] MEDS: InsuLIN REG 1unit/0.01ml Soln (100units/ml) SC SCH (18:23)
[2024-08-22] MEDS: ACCU-CHEK COMFORT CURVE STRIP VI SCH (18:24)
--- NOTE | 2024-08-22 19:11 | DVH ---
XY PERCUTANEOUS NEPHROSTOMY, HISTORY: PERC NEPHROSTOMY DRAIN PLACEMENT due to septic kidney stone in the ureter. PROCEDURE: Informed consent was obtained. The patient was placed on the fluoroscopic table in a prone position and IV sedation administered. The left flank was prepped with chlorhexidine which was allow ed to dry and draped in the usual sterile fashion. Time out was performed. and the soft tissues infil trated with 1% lidocaine local anesthetic. Utilizing ultrasound guidance, a 21 gauge Accu Stick needl e was advanced from a posterolateral approach into an upper pole calyx, and a small amount of contras t was injected under fluoroscopy to confirm positioning. Over a mandril wire, exchange was made to a non-vascular access set, through which was advanced an 0.035 wire. Following serial dilation, an 8.5 Turkmen multipurpose nephrostomy catheter was placed with tip pigtailed within the renal pelvis. Posit ion was confirmed with antegrade nephrostogram. The catheter was secured in place and connected to gr avity drainage. A sterile dressing was applied. No immediate complication was identified. DAP 170 FLUOROSCOPY TIME: 2.0 minutes. CONTRAST USED: 10 mL Isovue 300. SEDATION: Dr. Venkatesh Ayala was personally responsible for the administration of moderate sedation during the procedure performed, including the use of an independent trained observer who had no other duties during the procedure. The drugs utilized were IV fentanyl and versed (see nursing log for details). The total time of supervision by the attending physician was approximately 30 minutes. FINDINGS: Mild to moderately dilated left renal collecting system including the ureter to the level of the distal ureter. Placement of a 8.5 brazilian left nephrostomy tube into the renal pelvis. IMPRESSION: Mild to moderately left hydronephrosis including the ureter to the level of the distal ureter. Placem ent of a 8.5 brazilian left nephrostomy tube into the renal pelvis. PLAN: Routine catheter care.
--- NOTE | 2024-08-22 19:12 | DVH ---
US US GUIDANCE FOR NEEDLE PLACEME, HISTORY: PERC NEPHROSTOMY DRAIN PLACEMENT due to septic kidney stone in the ureter. PROCEDURE: Informed consent was obtained. The patient was placed on the fluoroscopic table in a prone position and IV sedation administered. The left flank was prepped with chlorhexidine which was allow ed to dry and draped in the usual sterile fashion. Time out was performed. and the soft tissues infil trated with 1% lidocaine local anesthetic. Utilizing ultrasound guidance, a 21 gauge Accu Stick needl e was advanced from a posterolateral approach into an upper pole calyx, and a small amount of contras t was injected under fluoroscopy to confirm positioning. Over a mandril wire, exchange was made to a non-vascular access set, through which was advanced an 0.035 wire. Following serial dilation, an 8.5 English multipurpose nephrostomy catheter was placed with tip pigtailed within the renal pelvis. Posit ion was confirmed with antegrade nephrostogram. The catheter was secured in place and connected to gr avity drainage. A sterile dressing was applied. No immediate complication was identified. DAP 170 FLUOROSCOPY TIME: 2.0 minutes. CONTRAST USED: 10 mL Isovue 300. SEDATION: Dr. Venkatesh Ayala was personally responsible for the administration of moderate sedation during the procedure performed, including the use of an independent trained observer who had no other duties during the procedure. The drugs utilized were IV fentanyl and versed (see nursing log for details). The total time of supervision by the attending physician was approximately 30 minutes. FINDINGS: Mild to moderately dilated left renal collecting system including the ureter to the level o f the distal ureter. Placement of a 8.5 moroccan left nephrostomy tube into the renal pelvis. IMPRESSION: Mild to moderately left hydronephrosis including the ureter to the level of the distal ureter. Placem ent of a 8.5 moroccan left nephrostomy tube into the renal pelvis. PLAN: Routine catheter care.
[2024-08-22] MEDS: MORPHINE SULFATE INJ 2 MG/ml SYRG IV PRN (19:58)
[2024-08-22 21:16] LABS: Hematocrit 41.1 % (36.0-46.0); Hemoglobin 13.5 g/dL (12.2-16.2); Mean Corpuscular Hemoglobin 28.6 pg (28.0-32.0); Mean Corpuscular Hgb Conc. 32.7 g/dL (32.0-36.0); Mean Corpuscular Volume 87.3 fL (80.0-100.0); Platelet Count (auto) 50 10^3/uL (140-450); Red Blood Cells 4.71 10^6/uL (4.0-5.20); Red Cell Distribution Width 15.2 % (11.8-14.3)
[2024-08-22 21:18] LABS: White Blood Cell 30.9 10^3/uL (4.4-10.8)
[2024-08-22 21:19] LABS: Basophils % (manual) 0 (0.0-2.0); Blast Cells 0; Eosinophils % (manual) 0 (0-7); Metamyelocytes % 0; Myelocytes % 0; Promyelocytes % 0; Reactive Lymphocytes 0
[2024-08-22 21:30] LABS: Band Neutrophils % (manual) 5; Lymphocytes % (manual) 3 (10.0-50.0); Monocytes % (manual) 6 (0-12); Platelet Estimate Decreased
[2024-08-22] MEDS: MEROPENEM 1GM IVPB 50 ML IV SCH (21:33)
[2024-08-23] VITALS (81 sets, daily range): BP systolic 83–167; BP diastolic 25–102; PULSE 71–134; RESP 11–36; TEMP 97.7–98.2; O2SAT 93–100
[2024-08-23 00:13] LABS: INR 1.19 (0.9-1.15); Partial Thromboplastin Time 33.6 SEC (24.5-34.5); Prothrombin Time 12.4 sec (9.3-11.8)
[2024-08-23 03:56] LABS: Basophils # (auto) 0.1 10 ^3/uL (0-0.2); Eosinophils # (auto) 0 10 ^3/uL (0-0.8); Hematocrit 33.7 % (36.0-46.0); Hemoglobin 11.5 g/dL (12.2-16.2); Neutrophils # (auto) 22.9 10 ^3/uL (1.6-8.6); Red Cell Distribution Width 14.9 % (11.8-14.3)
[2024-08-23 03:58] LABS: Alanine Aminotransferase 18 U/L (7-40); Anion Gap 14 (5-15); BUN/Creatinine Ratio 32.6 (10.0-20.0); Calcium 9.1 mg/dL (8.7-10.4); Magnesium 2.4 mg/dL (1.6-2.6)
[2024-08-23 04:00] LABS: Aspartate Aminotransferase 39 U/L (13-40); Basophils % (auto) 0.2 % (0.0-2.0); Bilirubin, Total 0.5 mg/dL (0.2-1.0); Lymphocytes # (auto) 0.9 10 ^3/uL (0.4-5.4); Lymphocytes % (auto) 3.7 % (10.0-50.0); Mean Corpuscular Hemoglobin 29.3 pg (28.0-32.0); Mean Corpuscular Hgb Conc. 34.2 g/dL (32.0-36.0); Mean Corpuscular Volume 85.8 fL (80.0-100.0); Monocytes # (auto) 1.3 10 ^3/uL (0-1.3); Monocytes % (auto) 5.1 % (0.0-12.0); Platelet Count (auto) 55 10^3/uL (140-450); Red Blood Cells 3.93 10^6/uL (4.0-5.20); White Blood Cell 25.2 10^3/uL (4.4-10.8)
[2024-08-23 04:14] LABS: Albumin 2.3 g/dL (3.2-4.8); Alkaline Phosphatase 126 U/L (46-116); Blood Urea Nitrogen 28 mg/dL (9-23); Carbon Dioxide 19 mmol/L (20-31); Chloride 115 mmol/L (98-107); Glucose 122 mg/dL (74-106); Potassium 3.4 mmol/L (3.5-5.1); Sodium 148 mmol/L (136-145); Total Protein 4.6 g/dL (5.7-8.2)
[2024-08-23] MEDS: MORPHINE SULFATE INJ 2 MG/ml SYRG ONE (04:54)
[2024-08-23] MEDS: AMIODARONE BOLUS KIT 100 ML IV ONE ×2 (04:54→05:00)
[2024-08-23] MEDS: AMIODARONE 360mg/200mL PREMIX 200 ML IV ONE ×2 (04:54→05:39)
[2024-08-23] MEDS: MORPHINE SULFATE INJ 2 MG/ml SYRG IV ONE (05:00)
--- NOTE | 2024-08-23 08:58 | DVHPN2 ---
Progress Note - Dictate Date Seen: Aug 23, 2024 Medical Necessity Reason Pt with a Central, PICC or Fol: Yes The following are medically ne: Pedroza Catheter Reason for pedroza catheter: Bladder Retention/Obstruc, Strict I&O Medical Necessity Reason Urosepsis from 1 cm left distal ureteral calculus causing moderate hydronephrosis. Patient is status post percutaneous nephrostomy tube Subjective Remains in ICU vital signs Vital Sign Date Time Temp Pulse Resp B/P (MAP) Pulse Ox O2 Delivery O2 Flow Rate FiO2 08/23/24 06:45 86 17 134/44 (74) 99 08/23/24 06:00 Nasal Cannula* 2 08/23/24 04:00 98.2 98.2 Total Intake and Output 08/22/24 08/22/24 08/23/24 15:00 23:00 07:00 Intake Total 821.25 ml 1227.75 ml 828.08 ml Output Total 450 ml 83155 ml Balance 821.25 ml 777.75 ml -9421.92 ml medications Current Medications Medications Dose Ordered Sig/Justen Route Start Time Stop Time Status Last Admin Dose Admin Insulin Glargine 15 units DAILY SC 08/21/24 10:00 08/21/24 11:09 15 UNITS Norepinephrine Bitartrate 250 ml @ 3.75 mls/hr Q24H IV 08/20/24 15:15 08/22/24 18:19 11.25 MLS/HR Sodium Chloride 10 ml Q8HR IV 08/20/24 22:00 08/23/24 05:39 10 ML Docusate Sodium 100 mg BIDPRN PRN PO 08/20/24 17:00 Acetaminophen 650 mg Q6HP PRN PO 08/20/24 17:00 08/20/24 21:07 650 MG Acetaminophen/ Hydrocodone Bitart 1 tab Q4HP PRN PO 08/20/24 17:00 08/21/24 19:51 1 TAB Ondansetron HCl 4 mg Q4HP PRN IV 08/20/24 17:00 08/22/24 09:39 4 MG Baclofen 5 mg Q8HP PRN PO 08/21/24 12:30 08/22/24 05:26 5 MG Diagnostic Test (Pha) 1 strip Q6HR 08/22/24 18:00 08/23/24 05:39 1 STRIP Insulin Human Regular Q6HR SC 08/22/24 18:00 08/23/24 05:44 3 UNITS Dextrose 50 ml UD PRN IV 08/22/24 14:00 Morphine Sulfate 1 mg Q4HP PRN IV 08/22/24 16:45 08/23/24 01:08 1 MG Meropenem 50 ml @ 17 mls/hr Q12HR IV 08/22/24 22:00 08/22/24 21:33 17 MLS/HR Potassium Chloride 20 meq/ Dextrose 1,010 ml @ 75 mls/hr [id number] IV 08/23/24 07:15 objective WBC count is down to 25 laboratory and microbiology Laboratory Tests 08/23/24 03:08 Test 08/23/24 03:08 Range/Units Serum Glucose 122 H 74-106 mg/dL Problem List Bacteremia 1 cm distal obstructing stone, s/p PNT Assessment/Plan Status post left percutaneous nephrostomy tube continue medical management of other conditions Obtain urine culture One white count normalizes, patient will need to undergo left ureteroscopic laser lithotripsy Dietary Evaluation Review Comments: 1. When medically feasible, advance diet to 2 GNA CCHO-60, texture as tolerated. 2. Consider Renal specific diet if kidney function worsens. Expected Outcomes/Goals: controlled DM, gradual wt loss. Plan discussed with: Patient, Other HILARIO LISA MD Aug 23, 2024 08:58
[2024-08-23] MEDS: POTASSIUM CHLORIDE 20 MEQ in D5W 5% 1,000 ML IV SCH (09:03)
[2024-08-23] MEDS ORDERED: ENOXAPARIN SOD 40 MG/0.4 ML SYRINGE SC SCH (10:00)
--- NOTE | 2024-08-23 10:00 | ECG ---
[facility] Test Date: 2024-08-23 Test Time: 04:33:26 Pat Name: LINDA PENN Department: ICU Room: [address] [place] [address] A Gender: F Public Affairs Manager: JULIO : 1950 Requested By: TOMY PITTS Order Number: [id number] Reading MD: Lambert Cruz Measurements Intervals [place] Rate: 147 P: 0 RI: 0 QRS: -69 QRSD: 111 T: 99 QT: 326 QTc: 510 Interpretive Statements Atrial fibrillation Left anterior fascicular block Low voltage, precordial leads Consider anterior infarct Repolarization abnormality, prob rate related Prolonged QT interval Electronically Signed On 08-24-2024 15:52:30 PDT by Lambert Cruz Please click the below link to view image of tracing.
--- NOTE | 2024-08-23 10:00 | ECG ---
[facility] Test Date: 2024-08-23 Test Time: 04:22:21 Pat Name: LINDA PENN Department: icu Room: [address] [place] [address] A Gender: F Anesthesia Tech: jazmyn : 1950 Requested By: TOMY PITTS Order Number: [id number] Reading MD: Lambert Cruz Measurements Intervals [place] Rate: 152 P: 56 [place]: 87 QRS: -82 QRSD: 113 T: 98 QT: 299 QTc: 476 Interpretive Statements Supraventricular tachycardia Left anterior fascicular block Probable anterior infarct, old Repolarization abnormality, prob rate related Electronically Signed On 08-24-2024 15:52:23 PDT by Lambert Cruz Please click the below link to view image of tracing.
[2024-08-23] MEDS: AMIODARONE 360mg/200mL PREMIX 200 ML IV SCH (10:14)
--- NOTE | 2024-08-23 11:20 | DVHPNRES ---
Progress Note Date Seen: Aug 23, 2024 Resident Creating Document: ARIEL BAILON RESIDENT Medical Necessity Reason Pt with a Central, PICC or Fol: Yes The following are medically ne: Pedroza Catheter Reason for pedroza catheter: Bladder Retention/Obstruc, Strict I&O Subjective Review of Systems Patient was seen and examined at bedside. She has fluctuations on her mentation, oriented x1, more alert, GCS: 14. Off levophed. urine has gotten pink compared to gross hematuria from yesterday Objective vital signs Vital Sign Date Time Temp Pulse Resp B/P (MAP) Pulse Ox O2 Delivery O2 Flow Rate FiO2 08/23/24 08:45 90 14 112/56 (74) 98 08/23/24 08:00 Nasal Cannula* 2 28 08/23/24 08:00 97.7 97.7 Total Intake and Output 08/22/24 08/22/24 08/23/24 15:00 23:00 07:00 Intake Total 821.25 ml 1227.75 ml 972.663 ml Output Total 450 ml 75058 ml Balance 821.25 ml 777.75 ml -9277.337 ml medications Current Medications Medications Dose Ordered Sig/Justen Route Start Time Stop Time Status Last Admin Dose Admin Insulin Glargine 15 units DAILY SC 08/21/24 10:00 08/23/24 10:45 15 UNITS Norepinephrine Bitartrate 250 ml @ 3.75 mls/hr Q24H IV 08/20/24 15:15 08/22/24 18:19 11.25 MLS/HR Sodium Chloride 10 ml Q8HR IV 08/20/24 22:00 08/23/24 05:39 10 ML Docusate Sodium 100 mg BIDPRN PRN PO 08/20/24 17:00 Acetaminophen 650 mg Q6HP PRN PO 08/20/24 17:00 08/20/24 21:07 650 MG Acetaminophen/ Hydrocodone Bitart 1 tab Q4HP PRN PO 08/20/24 17:00 08/21/24 19:51 1 TAB Ondansetron HCl 4 mg Q4HP PRN IV 08/20/24 17:00 08/22/24 09:39 4 MG Baclofen 5 mg Q8HP PRN PO 08/21/24 12:30 08/22/24 05:26 5 MG Diagnostic Test (Pha) 1 strip Q6HR 08/22/24 18:00 08/23/24 05:39 1 STRIP Insulin Human Regular Q6HR SC 08/22/24 18:00 08/23/24 05:44 3 UNITS Dextrose 50 ml UD PRN IV 08/22/24 14:00 Morphine Sulfate 1 mg Q4HP PRN IV 08/22/24 16:45 08/23/24 01:08 1 MG Meropenem 50 ml @ 17 mls/hr Q12HR IV 08/22/24 22:00 08/23/24 10:28 17 MLS/HR Potassium Chloride 20 meq/ Dextrose 1,010 ml @ 75 mls/hr [id number] IV 08/23/24 07:15 08/23/24 09:03 75 MLS/HR Examination Physical examination as below: General: Awake, somnolent, mild distress due to generalized pain HEENT: Head is normocephalic and atraumatic. Pupils are equal, round, and reactive to light. Extraocular muscles are intact. No nasal discharge. No facial trauma. Intraoral exam shows moist mucous membranes with no tonsillar enlargement or exudate. Neck: Supple with no cervical lymphadenopathy. Heart: Regular rate without murmur, rub, or gallop. Lungs: Equal breath sounds bilaterally with no wheezing, rales, or rhonchi. There is no chest wall tenderness or instability. Abdomen: No external sign of injury. Bowel sounds are present. Abdomen is soft, nontender. No rebound, no guarding, no rigidity. Extremities: Strong peripheral pulses. There is no clubbing, no cyanosis, and no edema. Skin: No rash. Neurologic: Cranial nerves II-XII intact without motor, sensory, or cerebellar deficit, no asterixis. laboratory and microbiology Laboratory Tests 08/23/24 03:08 Test 08/23/24 03:08 Range/Units Serum Glucose 122 H 74-106 mg/dL Microbiology Date/Time Source Procedure Growth Status 08/22/24 16:00 Voided Urine Urine Culture - Preliminary Resulted 08/20/24 13:03 Blood Blood Culture - Preliminary Streptococcus Group B Resulted Labs and/or images reviewed: Labs reviewed by me, Image(s) reviewed by me Problem List/Assessment/Plan Problem List/Assessment/Plan Neurology #Metabolic encephalopathy, likely due to septic shock monitor Cardiovascular #H/o CHF #H/o Hypertension #H/o pacemaker #pericardial effusion, small echocardiogram shows ef 50% monitor Pulmonology #Acute hypoxic respiratory failure #atelectasis continue NC at 2lts, maintain sat above 92% Nephrology #AZUCENA due to VMN on CKD #Elevated anion gap metabolic acidosis #Hydroureteronpehrois, left s/p nephrostomy tube placement #Nephrolithiasis, left #hematuria Urologist following, pending ESWL once stable 1cm stone in distal ureter, left Pain meds as needed bladder irrigation #Hypernatremia D5W + K, monitor Endocrinology #Type 2 diabetes #Early DKA, resolved Monitor SSI mild Lantus 15U qd Gastroenterology #Transaminitis, likely due to septic shock monitor Nutrition: mechanical soft Hematology and Oncology #Severe thrombocytopenia likely consumption from sepsis Monitor Infectious Disease #Septic shock due to UTI #Bacteremia, growing Streptococcus, and GPC in clusters #Lactic acidosis due to above start vancomycin continue Merrem IV Pending urine culture Repeat blood cultures off levophed Dermatology x DVT ppx lovenox PUD ppx x Drips levophed Lines right femoral TLC requested PT critical care time 37mins Goals of care were discussed for 34 minutes. FULL CODE. Time spent outside of procedures 88 mins Case was discussed with Dr. Valdes Plan discussed with: Other (RN) My Orders My Orders Orders - ARIEL BAILON RESIDENT Procedure Category Date Status Time Blood Culture MANISHA 08/22/24 In Process 13:55 Urine Bacterial MANISHA 08/22/24 In Process Culture 13:55 Glucose Blood PHA 08/22/24 In Process (Accu-Chek Comfort 18:00 Insulin R (Human) PHA 08/22/24 In Process (Insulin R) 18:00 Dextrose 50% Syringe PHA 08/22/24 In Process 14:00 Mrsa Screen MANISHA 08/22/24 In Process 15:45 Morphine Sulfate PHA 08/22/24 In Process Injection 16:45 Meropenem 1gm Ivpb PHA 08/22/24 In Process (Merrem 1gm/ Ns) 22:00 D5w 5% (Dextrose 5%) PHA 08/23/24 In Process W/Potassium Chlorid 07:15 Renal DIET 08/23/24 Transmitted Standard(2gna,3gk,Lopho) Lunch Dietary Evaluation Review Comments: 1. When medically feasible, advance diet to 2 GNA CCHO-60, texture as tolerated. 2. Consider Renal specific diet if kidney function worsens. Expected Outcomes/Goals: controlled DM, gradual wt loss. Date of Service: Aug 23, 2024 Billing Provider: GONZALO VALDES MD Common Visit Codes: [id number]-[id number] CARE 30-74 MIN ARIEL BAILON RESIDENT Aug 23, 2024 11:20 GONZALO VALDES MD Aug 24, 2024 15:43
--- NOTE | 2024-08-23 11:42 | DVHSR ---
APPROVED REPORT EXAM: Two-dimensional and M-mode echocardiogram with Doppler and color Doppler. Blood Pressure: 112/53 mmHg INDICATION Chest Pain Surgery/Intervention Pacemaker: RISK FACTORS Height: 5'2", Weight: 138 DIMENSIONS LVDd4.2 (3.8-5.7cm)LA (2D) (1.9-4.0cm)Aortic Root3.1 (2.0-3.7cm) LVDs3.2 (2.5-4.0cm)LA (MM) (1.9-4.0cm)Aortic Cusp Exc1.3 (1.5-2.0cm) EF (%) 48.0 (55-70%)Rt. Atrium (1.9-4.0cm)Asc. Aorta cm IVSd0.9 (0.7-1.1cm)RV (D) (1.8-2.4cm) PWd1.1 (0.7-1.1cm) Mitral Valve MitralMitral Stenosis E/A ratio0.02D MVAcm2 Aortic Valve Aortic ValveAortic Stenosis LVOT Diameter1.9 (1.8-2.4cm)Doppler AVAcm2 Tricuspid Valve TR Velocity2.28m/s [id number] Other Information Quality : Technically LimitedRhythm : Technically limited study due to body habitus, patient position, patient altered and uncooperative. Conclusion lvef 50% by visual estimate mild LVH normal rv function small pericardial effusion, therei s fibrinous material in pericardial space, ?fat pad present no HD compromsie normal RV Function
--- NOTE | 2024-08-23 18:11 | DVHPN2 ---
Progress Note Date Seen: Aug 23, 2024 Medical Necessity Reason Pt with a Central, PICC or Fol: Yes The following are medically ne: Pedroza Catheter Reason for pedroza catheter: Bladder Retention/Obstruc, Strict I&O Subjective Patient reports: Other (in icu ,confused) Review of Systems: Deferred Objective vital signs Vital Sign Date Time Temp Pulse Resp B/P (MAP) Pulse Ox O2 Delivery O2 Flow Rate FiO2 08/23/24 16:00 93 08/23/24 16:00 18 98 Nasal Cannula* 2 08/23/24 16:00 98.0 113/59 (77) 98.0 Total Intake and Output 08/22/24 08/22/24 08/23/24 15:00 23:00 07:00 Intake Total 821.25 ml 1227.75 ml 972.663 ml Output Total 450 ml 19490 ml Balance 821.25 ml 777.75 ml -9277.337 ml medications Current Medications Medications Dose Ordered Sig/Justen Route Start Time Stop Time Status Last Admin Dose Admin Insulin Glargine 15 units DAILY SC 08/21/24 10:00 08/23/24 10:45 15 UNITS Norepinephrine Bitartrate 250 ml @ 3.75 mls/hr Q24H IV 08/20/24 15:15 08/22/24 18:19 11.25 MLS/HR Sodium Chloride 10 ml Q8HR IV 08/20/24 22:00 08/23/24 14:14 10 ML Docusate Sodium 100 mg BIDPRN PRN PO 08/20/24 17:00 Acetaminophen 650 mg Q6HP PRN PO 08/20/24 17:00 08/20/24 21:07 650 MG Acetaminophen/ Hydrocodone Bitart 1 tab Q4HP PRN PO 08/20/24 17:00 08/21/24 19:51 1 TAB Ondansetron HCl 4 mg Q4HP PRN IV 08/20/24 17:00 08/22/24 09:39 4 MG Baclofen 5 mg Q8HP PRN PO 08/21/24 12:30 08/22/24 05:26 5 MG Diagnostic Test (Pha) 1 strip Q6HR 08/22/24 18:00 08/23/24 12:41 1 STRIP Insulin Human Regular Q6HR SC 08/22/24 18:00 08/23/24 12:44 3 UNITS Dextrose 50 ml UD PRN IV 08/22/24 14:00 Morphine Sulfate 1 mg Q4HP PRN IV 08/22/24 16:45 08/23/24 01:08 1 MG Meropenem 50 ml @ 17 mls/hr Q12HR IV 08/22/24 22:00 08/23/24 10:28 17 MLS/HR Potassium Chloride 20 meq/ Dextrose 1,010 ml @ 75 mls/hr [id number] IV 08/23/24 07:15 08/23/24 09:03 75 MLS/HR Vancomycin HCl 0 ml @ 0 mls/hr UD IV 08/23/24 18:15 UNV laboratory and microbiology Laboratory Tests 08/23/24 03:08 Test 08/23/24 03:08 Range/Units Serum Glucose 122 H 74-106 mg/dL Microbiology Date/Time Source Procedure Growth Status 08/22/24 16:03 Blood Blood Culture - Preliminary Resulted 08/22/24 16:00 Voided Urine Urine Culture - Preliminary Resulted 08/22/24 15:43 Nose MRSA Screen - Final Complete Problem List/Assessment/Plan Problem List/Assessment/Plan Acute kidney injury multifactorial in the setting of volume depletion and urinary obstruction Chronic kidney disease stage 3; sees Dr. Juarez Septic shock in the setting of urinary tract infection Left obstructing kidney stone with moderate hydronephrosis s/p pcnt Metabolic acidosis hypernatremia recs better renal function agree with d5w iv Plan discussed with: Other Dietary Evaluation Review Comments: 1. When medically feasible, advance diet to 2 GNA CCHO-60, texture as tolerated. 2. Consider Renal specific diet if kidney function worsens. Expected Outcomes/Goals: controlled DM, gradual wt loss. SANTOS BREWER MD Aug 23, 2024 18:11
[2024-08-23] MEDS ORDERED: VANCOMYCIN PER PHARMACY 0 MG IV SCH (18:15)
--- NOTE | 2024-08-23 19:16 | DVH ---
Date: 08/23/2024 03:58 PM Examination: XY KUB ABDOMEN SINGLE VIEW History: status of left ureteral stone Comparison: None TECHNIQUE: Frontal views of the abdomen was obtained. FINDINGS: Bowel gas pattern is unremarkable. Left-sided nephrostomy tube visualized. Gaseous distention of the stomach. Right femoral catheter in place at the top of the sacrum. The lung bases are unremarkable. No acute osseous abnormality identified. IMPRESSION: 1. Nonobstructive bowel gas pattern. 2. Gaseous distention of the stomach 3. Right femoral catheter in place of the top of the sacrum 4. Left nephrostomy tube in place.
[2024-08-23] MEDS: VANCOMYCIN 1GM/200ML PM 200 ML IV ONE (19:32)
--- NOTE | 2024-08-23 22:54 | DVH ---
Upper Extremity Venous Duplex Clinical History: RT ARM SWELLING Comparison: None Technique: Duplex Doppler evaluation of the venous system of the RIGHT lower neck and upper extremity including color Doppler and spectral/pulsed waveform analysis was performed. Findings: The internal jugular vein demonstrates appropriate compressibility and waveform variability. The subclavian vein is patent on color Doppler evaluation without intraluminal thrombus and demonstra uvaldo waveform variability. The visualized portion of the brachiocephalic vein is patent on color Doppler evaluation without intr aluminal thrombus and demonstrates waveform variability. The axillary vein demonstrates appropriate compressibility and waveform variability. The brachial veins demonstrate appropriate compressibility and patency on Doppler evaluation. The basilic vein demonstrates appropriate compressibility and patency on Doppler evaluation. The cephalic vein demonstrates appropriate compressibility and patency on Doppler evaluation. Impression: 1. No venous thrombus identified in the RIGHT upper extremity vessels evaluated above. 2. If clinical concern/symptoms persist or worsen, short-interval follow-up study is suggested.
[2024-08-24] VITALS (37 sets, daily range): BP systolic 83–151; BP diastolic 49–69; PULSE 54–91; RESP 12–28; TEMP 97.6–98.7; O2SAT 94–100
[2024-08-24 03:57] LABS: Hematocrit 32.9 % (36.0-46.0); Hemoglobin 11.2 g/dL (12.2-16.2); Mean Corpuscular Hemoglobin 28.9 pg (28.0-32.0); Mean Corpuscular Volume 85.1 fL (80.0-100.0); Platelet Count (auto) 68 10^3/uL (140-450); Red Blood Cells 3.86 10^6/uL (4.0-5.20); Red Cell Distribution Width 14.7 % (11.8-14.3); White Blood Cell 19.8 10^3/uL (4.4-10.8)
[2024-08-24 04:02] LABS: Band Neutrophils % (manual) 0; Basophils % (manual) 0 (0.0-2.0); Blast Cells 0; Eosinophils % (manual) 0 (0-7); Myelocytes % 0; Promyelocytes % 0; Reactive Lymphocytes 0
[2024-08-24 04:08] LABS: Alanine Aminotransferase 16 U/L (7-40); Alkaline Phosphatase 86 U/L (46-116); Anion Gap 7 (5-15); BUN/Creatinine Ratio 28.4 (10.0-20.0); Blood Urea Nitrogen 23 mg/dL (9-23); Calcium 8.9 mg/dL (8.7-10.4); Carbon Dioxide 24 mmol/L (20-31); Magnesium 2.1 mg/dL (1.6-2.6); Sodium 144 mmol/L (136-145)
[2024-08-24 04:09] LABS: Aspartate Aminotransferase 30 U/L (13-40); Bilirubin, Total 0.3 mg/dL (0.2-1.0)
[2024-08-24 04:18] LABS: Albumin 2.2 g/dL (3.2-4.8); Chloride 113 mmol/L (98-107); Glucose 178 mg/dL (74-106); Total Protein 4.6 g/dL (5.7-8.2)
[2024-08-24 04:52] LABS: Lymphocytes % (manual) 7 (10.0-50.0); Metamyelocytes % 2; Monocytes % (manual) 4 (0-12); Platelet Estimate Decreased
--- NOTE | 2024-08-24 05:26 | DVH ---
EXAM: XR Chest, 1 View CLINICAL INDICATION: sob TECHNIQUE: Frontal view of the chest. COMPARISON: XY CHEST PORTABLE on DOS: 08/20/24 FINDINGS: LUNGS AND PLEURAL SPACES: Unremarkable. No consolidation. No pneumothorax. HEART: Cardiomegaly without overt failure. MEDIASTINUM: Unremarkable. Normal mediastinal contour. BONES/JOINTS: Unremarkable. No acute fracture. TUBES, LINES AND DEVICES: Left-sided cardiac pacemaker. OTHER FINDINGS: . . . IMPRESSION: Cardiomegaly without overt failure.
[2024-08-24] MEDS: POTASSIUM CHL 20MEQ/50ML 50 ML IV SCH (06:12)
--- NOTE | 2024-08-24 11:39 | DVHPNRES ---
Progress Note Date Seen: Aug 24, 2024 Resident Creating Document: ARIEL BAILON RESIDENT Medical Necessity Reason Pt with a Central, PICC or Fol: Yes The following are medically ne: Pedroza Catheter Reason for pedroza catheter: Bladder Retention/Obstruc, Strict I&O Subjective Review of Systems Patient was seen and examined at bedside. She has fluctuations on her mentation, oriented x1, more alert, GCS: 14. Off levophed. urine has gotten pink compared to gross hematuria from yesterday Objective vital signs Vital Sign Date Time Temp Pulse Resp B/P (MAP) Pulse Ox O2 Delivery O2 Flow Rate FiO2 08/24/24 09:00 79 17 151/58 (89) 98 08/24/24 08:00 97.7 97.7 08/24/24 08:00 Nasal Cannula* 2 28 Total Intake and Output 08/23/24 08/23/24 08/24/24 15:00 23:00 07:00 Intake Total 1071.639 ml 1653.62 ml 1074.62 ml Output Total 64773 ml 900 ml Balance 1071.639 ml -44948.38 ml 174.62 ml medications Current Medications Medications Dose Ordered Sig/Justen Route Start Time Stop Time Status Last Admin Dose Admin Insulin Glargine 15 units DAILY SC 08/21/24 10:00 08/24/24 10:13 15 UNITS Norepinephrine Bitartrate 250 ml @ 3.75 mls/hr Q24H IV 08/20/24 15:15 08/22/24 18:19 11.25 MLS/HR Sodium Chloride 10 ml Q8HR IV 08/20/24 22:00 08/24/24 05:39 10 ML Docusate Sodium 100 mg BIDPRN PRN PO 08/20/24 17:00 Acetaminophen 650 mg Q6HP PRN PO 08/20/24 17:00 08/20/24 21:07 650 MG Acetaminophen/ Hydrocodone Bitart 1 tab Q4HP PRN PO 08/20/24 17:00 08/24/24 10:36 1 TAB Ondansetron HCl 4 mg Q4HP PRN IV 08/20/24 17:00 08/22/24 09:39 4 MG Baclofen 5 mg Q8HP PRN PO 08/21/24 12:30 08/22/24 05:26 5 MG Diagnostic Test (Pha) 1 strip Q6HR 08/22/24 18:00 08/24/24 05:39 1 STRIP Insulin Human Regular Q6HR SC 08/22/24 18:00 08/24/24 05:41 3 UNITS Dextrose 50 ml UD PRN IV 08/22/24 14:00 Morphine Sulfate 1 mg Q4HP PRN IV 08/22/24 16:45 08/23/24 01:08 1 MG Meropenem 50 ml @ 17 mls/hr Q12HR IV 08/22/24 22:00 08/24/24 09:56 17 MLS/HR Potassium Chloride 20 meq/ Dextrose 1,010 ml @ 75 mls/hr [id number] IV 08/23/24 07:15 08/24/24 00:20 75 MLS/HR Vancomycin HCl 0 ml @ 0 mls/hr UD IV 08/23/24 18:15 Potassium Chloride 50 ml @ 25 mls/hr Q2H IV 08/24/24 06:15 08/24/24 12:14 08/24/24 09:55 25 MLS/HR Examination Physical examination as below: General: Awake, somnolent, mild distress due to generalized pain HEENT: Head is normocephalic and atraumatic. Pupils are equal, round, and reactive to light. Extraocular muscles are intact. No nasal discharge. No facial trauma. Intraoral exam shows moist mucous membranes with no tonsillar enlargement or exudate. Neck: Supple with no cervical lymphadenopathy. Heart: Regular rate without murmur, rub, or gallop. Lungs: Equal breath sounds bilaterally with no wheezing, rales, or rhonchi. There is no chest wall tenderness or instability. Abdomen: No external sign of injury. Bowel sounds are present. Abdomen is soft, nontender. No rebound, no guarding, no rigidity. Extremities: Strong peripheral pulses. There is no clubbing, no cyanosis, and no edema. Skin: No rash. Neurologic: Cranial nerves II-XII intact without motor, sensory, or cerebellar deficit, no asterixis. laboratory and microbiology Laboratory Tests 08/24/24 03:14 Test 08/24/24 03:14 Range/Units Serum Glucose 178 H 74-106 mg/dL Microbiology Date/Time Source Procedure Growth Status 08/23/24 08:37 Urine - Catheterized Urine Culture - Preliminary Resulted 08/22/24 16:03 Blood Blood Culture - Preliminary Resulted 08/22/24 15:43 Nose MRSA Screen - Final Complete Labs and/or images reviewed: Labs reviewed by me, Image(s) reviewed by me Problem List/Assessment/Plan Problem List/Assessment/Plan Neurology #Metabolic encephalopathy, likely due to septic shock monitor Cardiovascular #H/o CHF #H/o Hypertension #H/o pacemaker #pericardial effusion, small echocardiogram shows ef 50% monitor Pulmonology #Acute hypoxic respiratory failure #atelectasis continue NC at 2lts, maintain sat above 92% IS q1hr Nephrology #AZUCENA due to VMN on CKD #Elevated anion gap metabolic acidosis #Hydroureteronpehrois, left s/p nephrostomy tube placement #Nephrolithiasis, left #hematuria Urologist following, pending ESWL once stable 1cm stone in distal ureter, left Pain meds as needed bladder irrigation #Hypernatremia D5W + K, monitor Endocrinology #Type 2 diabetes #Early DKA, resolved Monitor SSI mild Lantus 15U qd Gastroenterology #Transaminitis, likely due to septic shock monitor Nutrition: mechanical soft Hematology and Oncology #Severe thrombocytopenia likely consumption from sepsis Monitor Infectious Disease #Septic shock due to UTI #Bacteremia, growing Streptococcus, and GPC in clusters #Lactic acidosis due to above continue vancomycin dc Merrem IV, start rocephin Pending urine culture Repeat blood cultures off levophed Dermatology x DVT ppx lovenox PUD ppx x Drips levophed Lines right femoral TLC requested PT downgrade to telemetry Goals of care were discussed for 34 minutes. FULL CODE. Time spent outside of procedures 88 mins Case was discussed with Dr. Valdes Plan discussed with: Patient, Other (RN) My Orders My Orders Orders - ARIEL BAILON RESIDENT Procedure Category Date Status Time Communication Order ORDERS 08/23/24 Transmitted 17:54 Vancomycin Per PHA 08/23/24 In Process Pharmacy 18:15 Chest Portable XY 08/24/24 Resulted 04:00 Pt Request For Service PT 08/23/24 Logged 20:13 * Stretching Press Operator CONS 08/24/24 Transmitted Consult Transfer Orders XFER 08/24/24 Transmitted 10:29 Dietary Evaluation Review Comments: 1. When medically feasible, advance diet to 2 GNA CCHO-60, texture as tolerated. 2. Consider Renal specific diet if kidney function worsens. Expected Outcomes/Goals: controlled DM, gradual wt loss. Date of Service: Aug 24, 2024 Billing Provider: GONZALO VALDES MD Common Visit Codes: [id number] INP/OBS CARE(HIGH) Secondary Visit Codes: 60229-[id number] CARE PLAN 30 MINUTES ARIEL BAILON Aug 24, 2024 11:39 GONZALO VALDES MD August 25, 2024 12:38
--- NOTE | 2024-08-24 17:31 | DVHPN2 ---
Progress Note Date Seen: Aug 24, 2024 Medical Necessity Reason Pt with a Central, PICC or Fol: Yes The following are medically ne: Pedroza Catheter Reason for pedroza catheter: Bladder Retention/Obstruc, Strict I&O Subjective Patient reports: No new complaints Objective vital signs Vital Sign Date Time Temp Pulse Resp B/P (MAP) Pulse Ox O2 Delivery O2 Flow Rate FiO2 08/24/24 16:13 18 99 Nasal Cannula* 2 28 08/24/24 16:05 98.7 54 102/57 (72) 98.7 Total Intake and Output 08/23/24 08/23/24 08/24/24 15:00 23:00 07:00 Intake Total 1071.639 ml 1653.62 ml 1166.28 ml Output Total 60303 ml 900 ml Balance 1071.639 ml -71973.38 ml 266.28 ml medications Current Medications Medications Dose Ordered Sig/Justen Route Start Time Stop Time Status Last Admin Dose Admin Insulin Glargine 15 units DAILY SC 08/21/24 10:00 08/24/24 10:13 15 UNITS Norepinephrine Bitartrate 250 ml @ 3.75 mls/hr Q24H IV 08/20/24 15:15 08/22/24 18:19 11.25 MLS/HR Sodium Chloride 10 ml Q8HR IV 08/20/24 22:00 08/24/24 13:44 10 ML Docusate Sodium 100 mg BIDPRN PRN PO 08/20/24 17:00 Acetaminophen 650 mg Q6HP PRN PO 08/20/24 17:00 08/20/24 21:07 650 MG Acetaminophen/ Hydrocodone Bitart 1 tab Q4HP PRN PO 08/20/24 17:00 08/24/24 10:36 1 TAB Ondansetron HCl 4 mg Q4HP PRN IV 08/20/24 17:00 08/22/24 09:39 4 MG Baclofen 5 mg Q8HP PRN PO 08/21/24 12:30 08/22/24 05:26 5 MG Diagnostic Test (Pha) 1 strip Q6HR 08/22/24 18:00 08/24/24 12:16 1 STRIP Insulin Human Regular Q6HR SC 08/22/24 18:00 08/24/24 12:20 4 UNITS Dextrose 50 ml UD PRN IV 08/22/24 14:00 Morphine Sulfate 1 mg Q4HP PRN IV 08/22/24 16:45 08/23/24 01:08 1 MG Meropenem 50 ml @ 17 mls/hr Q12HR IV 08/22/24 22:00 08/24/24 09:56 17 MLS/HR Potassium Chloride 20 meq/ Dextrose 1,010 ml @ 75 mls/hr [id number] IV 08/23/24 07:15 08/24/24 00:20 75 MLS/HR Vancomycin HCl 0 ml @ 0 mls/hr UD IV 08/23/24 18:15 Vancomycin HCl 250 ml @ 200 mls/hr Q24H IV 08/24/24 20:00 laboratory and microbiology Laboratory Tests 08/24/24 03:14 Test 08/24/24 03:14 Range/Units Serum Glucose 178 H 74-106 mg/dL Microbiology Date/Time Source Procedure Growth Status 08/23/24 08:37 Urine - Catheterized Urine Culture - Preliminary Resulted 08/22/24 16:03 Blood Blood Culture - Preliminary Resulted 08/22/24 15:43 Nose MRSA Screen - Final Complete Problem List/Assessment/Plan Problem List/Assessment/Plan Acute kidney injury multifactorial in the setting of volume depletion and urinary obstruction Chronic kidney disease stage 3; sees Dr. Juarez Septic shock in the setting of urinary tract infection Left obstructing kidney stone with moderate hydronephrosis s/p pcnt Metabolic acidosis hypernatremia recs better renal function will sign off the case /pls reconsult if needed Plan discussed with: Patient Dietary Evaluation Review Comments: 1. When medically feasible, advance diet to 2 GNA CCHO-60, texture as tolerated. 2. Consider Renal specific diet if kidney function worsens. Expected Outcomes/Goals: controlled DM, gradual wt loss. SANTOS BREWER MD Aug 24, 2024 17:31
[2024-08-24 18:21] LABS: Urine Bacteria FEW /hpf (None Seen); Urine Blood 3+ /uL (Negative); Urine Budding Yeast MANY /hpf (None Seen); Urine Clarity Turbid (Clear); Urine Color Light-Brown (Yellow); Urine Protein, UAD 1+ (Negative); Urine Specific Gravity 1.022 (1.001-1.035); Urine Squamous Epithelial Cell FEW /hpf (<5); Urine Urobilinogen Normal (Negative); Urine WBC 20 /HPF (0-5)
[2024-08-24] MEDS: VANCOMYCIN 1.25GM/250ML 250 ML IV SCH (20:52)
[2024-08-25] VITALS (12 sets, daily range): BP systolic 107–156; BP diastolic 44–81; PULSE 79–100; RESP 17–22; TEMP 97.9–99.8; O2SAT 95–100
[2024-08-25 06:23] LABS: Basophils # (auto) 0 10 ^3/uL (0-0.2); Basophils % (auto) 0.1 % (0.0-2.0); Eosinophils # (auto) 0 10 ^3/uL (0-0.8); Eosinophils % (auto) 0.3 % (0.0-7.0); Hematocrit 35.5 % (36.0-46.0); Hemoglobin 11.9 g/dL (12.2-16.2); Lymphocytes % (auto) 7.5 % (10.0-50.0); Mean Corpuscular Hemoglobin 28.9 pg (28.0-32.0); Mean Corpuscular Hgb Conc. 33.5 g/dL (32.0-36.0); Mean Corpuscular Volume 86.2 fL (80.0-100.0); Monocytes # (auto) 0.6 10 ^3/uL (0-1.3); Monocytes % (auto) 4.6 % (0.0-12.0); Neutrophils # (auto) 12.1 10 ^3/uL (1.6-8.6); Neutrophils % (auto) 87.5 % (37.0-80.0); Nucleated Red Blood Cells % 0.1 %; Platelet Count (auto) 119 10^3/uL (140-450); Red Blood Cells 4.12 10^6/uL (4.0-5.20); Red Cell Distribution Width 14.9 % (11.8-14.3); White Blood Cell 13.9 10^3/uL (4.4-10.8)
[2024-08-25 06:41] LABS: Alanine Aminotransferase 17 U/L (7-40); Alkaline Phosphatase 96 U/L (46-116); Anion Gap 7 (5-15); Aspartate Aminotransferase 24 U/L (13-40); BUN/Creatinine Ratio 28.2 (10.0-20.0); Blood Urea Nitrogen 20 mg/dL (9-23); Calcium 9.2 mg/dL (8.7-10.4); Carbon Dioxide 24 mmol/L (20-31); Chloride 110 mmol/L (98-107); Glucose 132 mg/dL (74-106); Magnesium 1.9 mg/dL (1.6-2.6); Potassium 3.9 mmol/L (3.5-5.1); Sodium 141 mmol/L (136-145)
[2024-08-25 06:42] LABS: Albumin 2.5 g/dL (3.2-4.8); Total Protein 5.2 g/dL (5.7-8.2)
[2024-08-25 06:43] LABS: Bilirubin, Total 0.6 mg/dL (0.2-1.0)
[2024-08-25] MEDS ORDERED: DEXTROSE (50%) 50ML SYRG IV PRN (08:00)
[2024-08-25] MEDS: FLUCONAZOLE 100 MG TAB PO SCH (09:43)
[2024-08-25] MEDS: cefTRIAXone 1GM/50ML D5W 50 ML IV SCH (09:45)
--- NOTE | 2024-08-25 10:45 | DVHPNRES ---
Progress Note Date Seen: August 25, 2024 Resident Creating Document: ARIEL BAILON RESIDENT Medical Necessity Reason Pt with a Central, PICC or Fol: Yes The following are medically ne: Pedroza Catheter Reason for pedroza catheter: Bladder Retention/Obstruc, Strict I&O Subjective Review of Systems Patient was seen and examined at bedside. She has fluctuations on her mentation, oriented x2, more alert,. urine has gotten pink compared to gross hematuria from yesterday Objective vital signs Vital Sign Date Time Temp Pulse Resp B/P (MAP) Pulse Ox O2 Delivery O2 Flow Rate FiO2 08/25/24 06:00 18 98 Nasal Cannula* 2 28 08/25/24 05:00 98.5 81 118/44 (68) 98.5 Total Intake and Output 08/24/24 08/24/24 08/25/24 15:00 23:00 07:00 Intake Total 1444.98 ml 250 ml 600 ml Output Total 550 ml 600 ml Balance 1444.98 ml -300 ml 0 ml medications Current Medications Medications Dose Ordered Sig/Justen Route Start Time Stop Time Status Last Admin Dose Admin Insulin Glargine 15 units DAILY SC 08/21/24 10:00 08/25/24 09:50 15 UNITS Sodium Chloride 10 ml Q8HR IV 08/20/24 22:00 08/25/24 06:23 10 ML Docusate Sodium 100 mg BIDPRN PRN PO 08/20/24 17:00 Acetaminophen 650 mg Q6HP PRN PO 08/20/24 17:00 08/20/24 21:07 650 MG Acetaminophen/ Hydrocodone Bitart 1 tab Q4HP PRN PO 08/20/24 17:00 08/25/24 09:44 1 TAB Ondansetron HCl 4 mg Q4HP PRN IV 08/20/24 17:00 08/22/24 09:39 4 MG Baclofen 5 mg Q8HP PRN PO 08/21/24 12:30 08/22/24 05:26 5 MG Morphine Sulfate 1 mg Q4HP PRN IV 08/22/24 16:45 08/23/24 01:08 1 MG Vancomycin HCl 0 ml @ 0 mls/hr UD IV 08/23/24 18:15 Vancomycin HCl 250 ml @ 200 mls/hr Q24H IV 08/24/24 20:00 08/24/24 20:52 200 MLS/HR Ceftriaxone Sodium 50 ml @ 100 mls/hr DAILY@09 IV 08/25/24 09:00 08/25/24 09:45 100 MLS/HR Fluconazole 200 mg DAILY PO 08/25/24 10:00 08/25/24 09:43 200 MG Diagnostic Test (Pha) 1 strip ACHS 08/25/24 11:30 Insulin Human Regular ACHS SC 08/25/24 11:30 Dextrose 50 ml UD PRN IV 08/25/24 08:00 Examination Physical examination as below: General: Awake, somnolent, mild distress due to generalized pain HEENT: Head is normocephalic and atraumatic. Pupils are equal, round, and reactive to light. Extraocular muscles are intact. No nasal discharge. No facial trauma. Intraoral exam shows moist mucous membranes with no tonsillar enlargement or exudate. Neck: Supple with no cervical lymphadenopathy. Heart: Regular rate without murmur, rub, or gallop. Lungs: Equal breath sounds bilaterally with no wheezing, rales, or rhonchi. There is no chest wall tenderness or instability. Abdomen: No external sign of injury. Bowel sounds are present. Abdomen is soft, nontender. No rebound, no guarding, no rigidity. Extremities: Strong peripheral pulses. There is no clubbing, no cyanosis, and no edema. Skin: No rash. Neurologic: Cranial nerves II-XII intact without motor, sensory, or cerebellar deficit, no asterixis. laboratory and microbiology Laboratory Tests 08/25/24 05:37 Test 08/25/24 05:37 Range/Units Serum Glucose 132 H 74-106 mg/dL Microbiology Date/Time Source Procedure Growth Status 08/23/24 08:37 Urine - Catheterized Urine Culture - Preliminary Resulted 08/22/24 16:03 Blood Blood Culture - Preliminary Resulted 08/22/24 15:43 Nose MRSA Screen - Final Complete Labs and/or images reviewed: Labs reviewed by me, Image(s) reviewed by me Problem List/Assessment/Plan Problem List/Assessment/Plan Neurology #Metabolic encephalopathy, likely due to septic shock monitor Cardiovascular #H/o CHF #H/o Hypertension #H/o pacemaker #pericardial effusion, small echocardiogram shows ef 50% monitor Pulmonology #Acute hypoxic respiratory failure #atelectasis continue NC at 2lts, maintain sat above 92% IS q1hr Nephrology #AZUCENA due to VMN on CKD #Elevated anion gap metabolic acidosis #Hydroureteronpehrois, left s/p nephrostomy tube placement #Nephrolithiasis, left #hematuria Urologist following, pending ESWL once stable 1cm stone in distal ureter, left Pain meds as needed bladder irrigation #Hypernatremia monitor encourage po water Endocrinology #Type 2 diabetes #Early DKA, resolved Monitor SSI mild Gastroenterology #Transaminitis, likely due to septic shock monitor Nutrition: mechanical soft Hematology and Oncology #Severe thrombocytopenia likely consumption from sepsis Monitor Infectious Disease #Septic shock due to UTI #Bacteremia, growing Streptococcus, and GPC in clusters #Lactic acidosis due to above continue vancomycin continue rocephin Pending urine culture Repeat blood cultures Dermatology x DVT ppx lovenox PUD ppx x Drips off levophed Lines right femoral TLC, remove continue pt, pending snf auth Goals of care were discussed for 34 minutes. FULL CODE. Time spent outside of procedures 48 mins Case was discussed with Dr. Valdes Plan discussed with: Patient, Other (RN) My Orders My Orders Orders - ARIEL BAILON RESIDENT Procedure Category Date Status Time Vancomycin,Trough LAB 08/26/24 Verified 19:00 Vancomycin Per CHARLES 08/24/24 In Process Pharmacy Protoc 15:35 D/C Tlc CHARLES 08/24/24 In Process 16:53 * Digital Content Coordinator CONS 08/24/24 Transmitted Consult Ceftriaxone 1gm/50ml PHA 08/25/24 In Process D5w (Rocephin) 09:00 Blood Culture MANISHA 08/25/24 In Process 07:30 Fluconazole Tablet PHA 08/25/24 In Process (Diflucan Tablet) 10:00 Glucose Blood PHA 08/25/24 In Process (Accu-Chek Comfort 11:30 Insulin R (Human) PHA 08/25/24 In Process (Insulin R) 11:30 Dextrose 50% Syringe PHA 08/25/24 In Process 08:00 Dietary Evaluation Review Comments: 1. When medically feasible, advance diet to 2 GNA CCHO-60, texture as tolerated. 2. Consider Renal specific diet if kidney function worsens. Expected Outcomes/Goals: controlled DM, gradual wt loss. Date of Service: August 25, 2024 Billing Provider: GONZALO VALDES MD Common Visit Codes: 39132-[id number] INP/OBS CARE(HIGH) Secondary Visit Codes: 46125-BLMMQJAX CARE PLAN 30 MINUTES ARIEL BAILON RESIDENT August 25, 2024 10:45 GONZALO VALDES MD August 28, 2024 12:12
[2024-08-25] MEDS: ACCU-CHEK COMFORT CURVE STRIP VI SCH (11:36)
[2024-08-25] MEDS: InsuLIN REG 1unit/0.01ml Soln (100units/ml) SC SCH (11:39)
--- NOTE | 2024-08-25 14:11 | DVH ---
Exam: CT CT AB PEL WO CON-NO ORAL OR IV History: nephrolithiasis Comparison Study: CT CT AB PEL WO CON-NO ORAL OR IV on DOS: 08/20/24 Technique: Multidetector spiral CT of the abdomen was performed from lung bases to pubic symphysis. I maging was performed without IV contrast. Axial, coronal and sagittal multiplanar reformats were obta ined from the axial data set by the technologist. Radiation Dose : 1. Abdomen/Pelvis: CTDIvol 19.36 mGy, DLP 1038.03 mGy*cm. Findings: Evaluation of solid organs is limited due to lack of intravenous contrast use. Lung Bases: Cardiomegaly. Coronary artery calcifications. Vascular calcifications of the aorta. Liver: The liver is normal in size. No focal lesions. Gallbladder and Biliary Tree: Gallbladder sludge is present. Spleen: Unremarkable Pancreas: The pancreas is grossly normal in appearance. Adrenal Glands: Unremarkable Kidneys: Right kidney is unremarkable. Left nephrostomy in satisfactory position. Bladder: Grossly unremarkable for degree of distention. Bowel: The stomach is grossly normal in appearance. Diverticulosis. The appendix is not visualized; h owever, no secondary findings of acute appendicitis identified. Ascites: Absent Lymphadenopathy: No mesenteric, retroperitoneal or periportal lymphadenopathy. Abdominal Wall and Mesentery: Unremarkable. Vasculature: The visualized abdominal aorta is normal in size and caliber. There is extensive athero sclerotic calcification of the aorta and its branches. Evaluation of abdominal and pelvic vessels is limited due to lack of intravenous contrast. Pelvic Organs: Unremarkable Musculoskeletal: No aggressive focal bony lesions, acute fractures or dislocation. Degenerative vu es of the spine. IMPRESSION: Left nephrostomy in satisfactory position. No appreciable hydronephrosis. Unchanged calcification in the region of the distal left ureter measuring 0.6 cm. This may represent an unchanged ureteral stone versus pelvic phlebolith. Radiation optimization: All CT scans at this facility use at least one of these dose optimization lee hniques: automated exposure control mA and/or kV adjustment per patient size (includes targeted exam s where dose is matched to clinical indication) or iterative reconstruction.
[2024-08-26 05:00] VITALS: BP 105/65; PULSE 86; RESP 18; TEMP 97.6; O2SAT 95
[2024-08-26 06:50] LABS: Basophils # (auto) 0 10 ^3/uL (0-0.2); Basophils % (auto) 0.3 % (0.0-2.0); Eosinophils # (auto) 0 10 ^3/uL (0-0.8); Eosinophils % (auto) 0.3 % (0.0-7.0); Hemoglobin 11.4 g/dL (12.2-16.2); Lymphocytes # (auto) 0.9 10 ^3/uL (0.4-5.4); Lymphocytes % (auto) 6.1 % (10.0-50.0); Mean Corpuscular Hemoglobin 29.5 pg (28.0-32.0); Mean Corpuscular Hgb Conc. 34.4 g/dL (32.0-36.0); Mean Corpuscular Volume 85.7 fL (80.0-100.0); Monocytes # (auto) 0.6 10 ^3/uL (0-1.3); Monocytes % (auto) 4.1 % (0.0-12.0); Neutrophils # (auto) 13.1 10 ^3/uL (1.6-8.6); Neutrophils % (auto) 89.2 % (37.0-80.0); Platelet Count (auto) 167 10^3/uL (140-450); Red Blood Cells 3.85 10^6/uL (4.0-5.20); Red Cell Distribution Width 14.8 % (11.8-14.3); White Blood Cell 14.7 10^3/uL (4.4-10.8)
[2024-08-26 07:07] LABS: Chloride 106 mmol/L (98-107); Potassium 3.9 mmol/L (3.5-5.1); Sodium 138 mmol/L (136-145)
[2024-08-26 07:08] LABS: Anion Gap 8 (5-15); Carbon Dioxide 24 mmol/L (20-31)
[2024-08-26 07:09] LABS: Calcium 8.7 mg/dL (8.7-10.4)
[2024-08-26 07:14] LABS: BUN/Creatinine Ratio 26.1 (10.0-20.0); Blood Urea Nitrogen 18 mg/dL (9-23)
[2024-08-26 07:15] LABS: Glucose 148 mg/dL (74-106)
[2024-08-26 07:29] LABS: Magnesium 1.9 mg/dL (1.6-2.6)
[2024-08-26 08:00] VITALS: PULSE 85
[2024-08-26 09:30] VITALS: BP 97/60; PULSE 82; RESP 16; TEMP 97.3; O2SAT 97
[2024-08-26 12:30] VITALS: BP 131/39; PULSE 96; RESP 16; TEMP 97.8; O2SAT 98
[2024-08-26] MEDS: ceFAZolin 2 GM/D5W50ml 50 ML IV SCH (15:00)
--- NOTE | 2024-08-26 15:41 | DVHPNRES ---
Progress Note Date Seen: August 26, 2024 Resident Creating Document: ARIEL BAILON RESIDENT Medical Necessity Reason Pt with a Central, PICC or Fol: Yes The following are medically ne: Pedroza Catheter Reason for pedroza catheter: Bladder Retention/Obstruc, Strict I&O Subjective Review of Systems Patient was seen and examined at bedside. She has fluctuations on her mentation, oriented x3, tolerating diet Transfer summary: This is a 73 year old female with PMHx DM, CHF, HTN, and pacemaker presents to ED via EMS with chief complaint general weakness x6 days with malaise, fatigue, and body aches. PAST MEDICAL HISTORY: CHF, DM, HTN Surgical History: Pacemaker Social History: Smoker: Non-Smoker. Alcohol: Denies ETOH Use. Drugs: Denies Drug Use. Lives In: Home Upon EMS arrival on scene, findings were: BS 572, BP 58/35, weak pulse, SpO2 93% on RA, good capillary refill, and good mentation. Per pt, BS was 274 yesterday and she is compliant with her medications. Pt denies eating sugary foods and states she has been urinating many times. Pt reports drinking 3-4 water bottles per day. No other signs/symptoms or history reported. Patient was seen and examined at bedside. He has fluctuations on her mentation, oriented x1, somnolent, GCS: 14 She remains on Levophed at eight he continues to be on broad-spectrum antibiotics, cefepime and doxycycline. Her WBC count came down to 32k. UA shows UTI, pending urine culture, blood cultures growing a Streptococcus. previous imaging revealed left-sided hydro ureteral nephrosis, patient has had a nephrostogram today, nephrostomy tubes were placed. Patient continued to complain about generalized pain, she was placed on IV pain medication. Patient has had significant clinical improvement from admission, she was able to come off the vasopressor, however she continued to have fluctuation in mentation, she was found to be bacteremic. She was initially on vancomycin, cefepime, was deescalated to Rocephin, for the blood cultures demonstrated sensitivity to cefazolin. Patient has had significant improvement, she was able to tolerate diet, she is still reports having generalized weakness, but it has been improved, patient is currently working with physical therapy. Repeat blood cultures did show Gram-positive coaching change, specifically Staphylococcus capitis. We will order a new set of blood cultures. Urologist we will perform usually on bacteremia results. Patient's WBC count is still elevated, having low-grade fevers. There is no fluid coming out of nephrostomy however a repeat CT of the abdomen is shows 6 mm stone versus phlebolith. We will continue current management. Objective vital signs Vital Sign Date Time Temp Pulse Resp B/P (MAP) Pulse Ox O2 Delivery O2 Flow Rate FiO2 08/26/24 09:30 97.3 82 16 97/60 (72) 97 97.3 08/26/24 08:05 Room Air* 0 21 Total Intake and Output 08/25/24 08/25/24 08/26/24 15:00 23:00 07:00 Intake Total 850 ml 500 ml Output Total 1300 ml 500 ml Balance -450 ml 0 ml medications Current Medications Medications Dose Ordered Sig/Justen Route Start Time Stop Time Status Last Admin Dose Admin Sodium Chloride 10 ml Q8HR IV 08/20/24 22:00 08/26/24 05:46 10 ML Docusate Sodium 100 mg BIDPRN PRN PO 08/20/24 17:00 Acetaminophen 650 mg Q6HP PRN PO 08/20/24 17:00 08/20/24 21:07 650 MG Acetaminophen/ Hydrocodone Bitart 1 tab Q4HP PRN PO 08/20/24 17:00 08/26/24 05:44 1 TAB Ondansetron HCl 4 mg Q4HP PRN IV 08/20/24 17:00 08/22/24 09:39 4 MG Baclofen 5 mg Q8HP PRN PO 08/21/24 12:30 08/22/24 05:26 5 MG Morphine Sulfate 1 mg Q4HP PRN IV 08/22/24 16:45 08/23/24 01:08 1 MG Fluconazole 200 mg DAILY PO 08/25/24 10:00 08/26/24 09:22 200 MG Diagnostic Test (Pha) 1 strip ACHS 08/25/24 11:30 08/26/24 12:53 1 STRIP Insulin Human Regular ACHS SC 08/25/24 11:30 08/26/24 12:57 4 UNITS Dextrose 50 ml UD PRN IV 08/25/24 08:00 Cefazolin Sodium/ Dextrose 50 ml @ 50 mls/hr Q8HR IV 08/26/24 14:00 Examination Physical examination as below: General: Awake, somnolent, mild distress due to generalized pain HEENT: Head is normocephalic and atraumatic. Pupils are equal, round, and reactive to light. Extraocular muscles are intact. No nasal discharge. No facial trauma. Intraoral exam shows moist mucous membranes with no tonsillar enlargement or exudate. Neck: Supple with no cervical lymphadenopathy. Heart: Regular rate without murmur, rub, or gallop. Lungs: Equal breath sounds bilaterally with no wheezing, rales, or rhonchi. There is no chest wall tenderness or instability. Abdomen: No external sign of injury. Bowel sounds are present. Abdomen is soft, nontender. No rebound, no guarding, no rigidity. Extremities: Strong peripheral pulses. There is no clubbing, no cyanosis, and no edema. Skin: No rash. Neurologic: Cranial nerves II-XII intact without motor, sensory, or cerebellar deficit, no asterixis. laboratory and microbiology Laboratory Tests 08/26/24 06:22 Test 08/26/24 06:22 Range/Units Serum Glucose 148 H 74-106 mg/dL Microbiology Date/Time Source Procedure Growth Status 08/25/24 08:50 Blood Blood Culture - Preliminary Resulted 08/23/24 08:37 Urine - Catheterized Urine Culture - Final Complete 08/22/24 15:43 Nose MRSA Screen - Final Complete Labs and/or images reviewed: Labs reviewed by me, Image(s) reviewed by me Problem List/Assessment/Plan Problem List/Assessment/Plan Neurology #Metabolic encephalopathy, likely due to septic shock monitor Cardiovascular #H/o CHF #H/o Hypertension #H/o pacemaker #pericardial effusion, small echocardiogram shows ef 50% monitor Pulmonology #Acute hypoxic respiratory failure #atelectasis continue NC at 2lts, maintain sat above 92% IS q1hr Nephrology #AZUCENA due to VMN on CKD #Elevated anion gap metabolic acidosis #Hydroureteronpehrois, left s/p nephrostomy tube placement #Nephrolithiasis, left #hematuria Urologist following, pending ESWL once stable 1cm stone in distal ureter, left Pain meds as needed bladder irrigation #Hypernatremia monitor encourage po water Endocrinology #Type 2 diabetes #Early DKA, resolved Monitor SSI mild Gastroenterology #Transaminitis, likely due to septic shock monitor Nutrition: mechanical soft Hematology and Oncology #Severe thrombocytopenia likely consumption from sepsis Monitor Infectious Disease #Septic shock due to UTI #Bacteremia, growing Streptococcus, and GPC in clusters #Lactic acidosis due to above dc vancomycin dc rocephin continue cefazolin 2g iv tid Pending urine culture Repeat blood cultures Dermatology x DVT ppx lovenox PUD ppx x Drips off levophed Lines right femoral TLC, remove continue pt patient is still bacteremic, pending blood cultures, urologist is also planning to do ESWL once bacteremia resolves dc planning to snf started Goals of care were discussed for 34 minutes. FULL CODE. Time spent outside of procedures 88 mins Case was discussed with Dr. Malin Plan discussed with: Patient, Daughter, Other (RN) My Orders My Orders Orders - ARIEL BAILON RESIDENT Procedure Category Date Status Time * Airplane Flight Attendant CONS 08/25/24 Transmitted Consult 15:40 Cefazolin 2 PHA 08/26/24 In Process [id number] (Ancef) 14:00 Consistent DIET 08/26/24 Transmitted Carb(Ccho)Diabetes Lunch Complete Blood Count LAB 08/27/24 Verified 04:00 Comprehensive LAB 08/27/24 Verified Metabolic Panel 04:00 Magnesium LAB 08/27/24 Verified 04:00 Dietary Evaluation Review Comments: 1. When medically feasible, advance diet to 2 GNA CCHO-60, texture as tolerated. 2. Consider Renal specific diet if kidney function worsens. Expected Outcomes/Goals: controlled DM, gradual wt loss. ARIEL BAILON RESIDENT August 26, 2024 15:41
[2024-08-26 17:30] VITALS: BP 130/67; PULSE 99; RESP 18; TEMP 101.1; O2SAT 97
[2024-08-26 20:00] VITALS: PULSE 100
[2024-08-26] MEDS: DOCUSATE SOD 100 MG CAP PO PRN (22:07)
[2024-08-27] VITALS (8 sets, daily range): BP systolic 92–131; BP diastolic 50–80; PULSE 80–114; RESP 17–18; TEMP 98.1–98.8; O2SAT 90–100
[2024-08-27 07:29] LABS: Alanine Aminotransferase 14 U/L (7-40); Alkaline Phosphatase 78 U/L (46-116); Anion Gap 11 (5-15); Aspartate Aminotransferase 27 U/L (13-40); BUN/Creatinine Ratio 33.8 (10.0-20.0); Bilirubin, Total 0.5 mg/dL (0.2-1.0); Carbon Dioxide 23 mmol/L (20-31); Chloride 102 mmol/L (98-107); Magnesium 1.8 mg/dL (1.6-2.6); Potassium 4.3 mmol/L (3.5-5.1); Sodium 136 mmol/L (136-145)
[2024-08-27 07:33] LABS: Albumin 2.2 g/dL (3.2-4.8); Blood Urea Nitrogen 23 mg/dL (9-23); Calcium 8.3 mg/dL (8.7-10.4); Glucose 130 mg/dL (74-106); Total Protein 5.1 g/dL (5.7-8.2)
[2024-08-27 07:45] LABS: Hematocrit 32.6 % (36.0-46.0); Hemoglobin 11.2 g/dL (12.2-16.2); Mean Corpuscular Hemoglobin 29.8 pg (28.0-32.0); Mean Corpuscular Hgb Conc. 34.3 g/dL (32.0-36.0); Mean Corpuscular Volume 86.9 fL (80.0-100.0); Platelet Count (auto) 203 10^3/uL (140-450); Red Blood Cells 3.76 10^6/uL (4.0-5.20); White Blood Cell 14.1 10^3/uL (4.4-10.8)
[2024-08-27 07:53] LABS: Basophils % (manual) 0 (0.0-2.0); Blast Cells 0; Metamyelocytes % 0; Myelocytes % 0; Promyelocytes % 0
[2024-08-27 08:29] LABS: Band Neutrophils % (manual) 2; Eosinophils % (manual) 1 (0-7); Lymphocytes % (manual) 7 (10.0-50.0); Monocytes % (manual) 4 (0-12); Reactive Lymphocytes 1
[2024-08-27 08:30] LABS: Anisocytosis Slight; Platelet Estimate Adequate
--- NOTE | 2024-08-27 14:08 | DVHPN2 ---
Progress Note - Dictate Date Seen: August 27, 2024 Medical Necessity Reason Pt with a Central, PICC or Fol: Yes The following are medically ne: Pedroza Catheter Reason for pedroza catheter: Bladder Retention/Obstruc, Strict I&O vital signs Vital Sign Date Time Temp Pulse Resp B/P (MAP) Pulse Ox O2 Delivery O2 Flow Rate FiO2 08/27/24 12:52 98.3 110 18 120/56 (77) 90 98.3 08/27/24 08:00 Room Air* 0 21 Total Intake and Output 08/26/24 08/26/24 08/27/24 15:00 23:00 07:00 Intake Total 200 ml 500 ml 500 ml Output Total 1150 ml 1650 ml Balance 200 ml -650 ml -1150 ml medications Current Medications Medications Dose Ordered Sig/Justen Route Start Time Stop Time Status Last Admin Dose Admin Sodium Chloride 10 ml Q8HR IV 08/20/24 22:00 08/27/24 13:04 10 ML Docusate Sodium 100 mg BIDPRN PRN PO 08/20/24 17:00 08/26/24 22:07 100 MG Acetaminophen 650 mg Q6HP PRN PO 08/20/24 17:00 08/26/24 17:30 650 MG Acetaminophen/ Hydrocodone Bitart 1 tab Q4HP PRN PO 08/20/24 17:00 08/27/24 01:08 1 TAB Ondansetron HCl 4 mg Q4HP PRN IV 08/20/24 17:00 08/22/24 09:39 4 MG Baclofen 5 mg Q8HP PRN PO 08/21/24 12:30 08/26/24 22:07 5 MG Morphine Sulfate 1 mg Q4HP PRN IV 08/22/24 16:45 08/23/24 01:08 1 MG Fluconazole 200 mg DAILY PO 08/25/24 10:00 08/27/24 09:05 200 MG Diagnostic Test (Pha) 1 strip ACHS 08/25/24 11:30 08/27/24 11:14 1 STRIP Insulin Human Regular ACHS SC 08/25/24 11:30 08/27/24 11:13 4 UNITS Dextrose 50 ml UD PRN IV 08/25/24 08:00 Cefazolin Sodium/ Dextrose 50 ml @ 50 mls/hr Q8HR IV 08/26/24 14:00 08/27/24 13:03 50 MLS/HR laboratory and microbiology Laboratory Tests 08/27/24 05:17 Test 08/27/24 05:17 Range/Units Serum Glucose 130 H 74-106 mg/dL Assessment/Plan Covering for Dr. Montoya Impression Acute hypoxemic respiratory failure Septic shock Atelectasis DKA Patient seen and examined Events Low oxygen requirements On room air No distress Labs and imaging reviewed Management Supplemental oxygen as needed Titrate to maintain sats 90% or above Incentive spirometry Continue antibiotics F/u cultures Bronchodilators Monitor renal function Monitor electrolytes Supplement as needed Glycemic control DVT prophylaxis Dietary Evaluation Review Comments: 1. When medically feasible, advance diet to 2 GNA CCHO-60, texture as tolerated. 2. Consider Renal specific diet if kidney function worsens. Expected Outcomes/Goals: controlled DM, gradual wt loss. Plan discussed with: Patient OBED SOSA MD August 27, 2024 14:08
--- NOTE | 2024-08-27 17:22 | DVHPN2 ---
Subjective in bed on bipap Reviewed: H&P Changes from previous H/P or p: No Changes General: Per HPI Objective Vitals Vital Signs Date Time Temp Pulse Resp B/P (MAP) Pulse Ox O2 Delivery O2 Flow Rate FiO2 08/27/24 16:43 98.4 104 17 131/80 (97) 93 98.4 08/27/24 08:00 Room Air* 0 21 Intake/Output Intake and Output 08/27/24 07:00 Intake Total 1200 ml Output Total 2800 ml Balance -1600 ml Intake Oral 1100 ml IV Total 100 ml Output Urine Total 2800 ml # Bowel Movements 3 General Appearance: No acute distress HEENT: Atraumatic Lungs: Clear to auscultation Extremities: No clubbing, No cyanosis Medications Current Medications Medications Dose Ordered Sig/Justen Route Start Time Stop Time Status Last Admin Dose Admin Sodium Chloride 10 ml Q8HR IV 08/20/24 22:00 08/27/24 13:04 10 ML Docusate Sodium 100 mg BIDPRN PRN PO 08/20/24 17:00 08/26/24 22:07 100 MG Acetaminophen 650 mg Q6HP PRN PO 08/20/24 17:00 08/26/24 17:30 650 MG Acetaminophen/ Hydrocodone Bitart 1 tab Q4HP PRN PO 08/20/24 17:00 08/27/24 01:08 1 TAB Ondansetron HCl 4 mg Q4HP PRN IV 08/20/24 17:00 08/22/24 09:39 4 MG Baclofen 5 mg Q8HP PRN PO 08/21/24 12:30 08/27/24 16:16 5 MG Morphine Sulfate 1 mg Q4HP PRN IV 08/22/24 16:45 08/23/24 01:08 1 MG Fluconazole 200 mg DAILY PO 08/25/24 10:00 08/27/24 09:05 200 MG Diagnostic Test (Pha) 1 strip ACHS 08/25/24 11:30 08/27/24 16:24 1 STRIP Insulin Human Regular ACHS SC 08/25/24 11:30 08/27/24 16:30 2 UNITS Dextrose 50 ml UD PRN IV 08/25/24 08:00 Cefazolin Sodium/ Dextrose 50 ml @ 50 mls/hr Q8HR IV 08/26/24 14:00 08/27/24 13:03 50 MLS/HR Laboratory Results Laboratory Tests 08/27/24 05:17 Chemistry Test 08/27/24 05:17 Albumin 2.2 g/dL (3.2-4.8) L Calcium Level 8.3 mg/dL (8.7-10.4) L Magnesium Level 1.8 mg/dL (1.6-2.6) Total Protein 5.1 g/dL (5.7-8.2) L LFT Test 08/27/24 05:17 Alanine Aminotransferase (ALT) 14 U/L (7-40) Alkaline Phosphatase 78 U/L (46-116) Aspartate Amino Transferase (AST) 27 U/L (13-40) Total Bilirubin 0.5 mg/dL (0.2-1.0) Urinalysis Test 08/20/24 12:51 08/24/24 17:20 Urine Mucus Many (None Seen) Urine Color Light-brown (Yellow) Urine Clarity Turbid (Clear) H Urine pH 6.0 (5.0-9.0) Urine Specific [place] 1.022 (1.001-1.035) Urine Protein 1+ (Negative) H Urine Ketones 1+ (Negative) H Urine Blood 3+ /uL (Negative) H Urine Nitrite Negative (Negative) Urine Bilirubin Negative (Negative) Urine Urobilinogen Normal mg/dL (Negative) Urine Leukocyte Esterase Trace /uL (Negative) Urine RBC 63 /hpf (0 - 4) Urine Microscopic WBC 20 /HPF (0-5) H Urine Squamous Epithelial Cells Few /hpf (<5) Urine Bacteria Few /hpf (None Seen) H Urine Yeast (Budding) Many /hpf (None Seen) Urine Glucose 4+ mg/dL (Normal) H Microbiology Microbiology Date/Time Source Procedure Growth Status 08/25/24 08:50 Blood Blood Culture - Preliminary S. agalactiae - Group B Resulted 08/23/24 08:37 Urine - Catheterized Urine Culture - Final Complete 08/22/24 15:43 Nose MRSA Screen - Final Complete Assessment/Plan Assessment/Plan Neurology #Metabolic encephalopathy, likely due to septic shock monitor Cardiovascular #H/o CHF #H/o Hypertension #H/o pacemaker #pericardial effusion, small echocardiogram shows ef 50% monitor Pulmonology #Acute hypoxic respiratory failure #atelectasis continue NC at 2lts, maintain sat above 92% IS q1hr Nephrology #AZUCENA due to VMN on CKD #Elevated anion gap metabolic acidosis #Hydroureteronpehrois, left s/p nephrostomy tube placement #Nephrolithiasis, left #hematuria Urologist following, pending ESWL once stable 1cm stone in distal ureter, left Pain meds as needed bladder irrigation #Hypernatremia monitor encourage po water Endocrinology #Type 2 diabetes #Early DKA, resolved Monitor SSI mild Gastroenterology #Transaminitis, likely due to septic shock monitor Nutrition: mechanical soft Hematology and Oncology #Severe thrombocytopenia likely consumption from sepsis Monitor Infectious Disease #Septic shock due to UTI #Bacteremia, growing Streptococcus, and GPC in clusters #Lactic acidosis due to above dc vancomycin dc rocephin continue cefazolin 2g iv tid Pending urine culture Repeat blood cultures Dermatology x DVT ppx lovenox PUD ppx x Drips off levophed Lines right femoral TLC, remove continue pt patient is still bacteremic, pending blood cultures, urologist is also planning to do ESWL once bacteremia resolves dc planning to snf started Goals of care were discussed for 34 minutes. FULL CODE. Time spent outside of procedures 88 mins Plan discussed with: Daughter Date of Service: August 27, 2024 Billing Provider: MARCO ANTONIO MAJOR MD Common Visit Codes: [id number] CARE 30-74 MIN MARCO ANTONIO MAJOR MD August 27, 2024 17:22
[2024-08-28] VITALS (9 sets, daily range): BP systolic 93–132; BP diastolic 40–63; PULSE 85–93; RESP 17–19; TEMP 97.5–98.5; O2SAT 95–99
--- NOTE | 2024-08-28 15:26 | DVHPN2 ---
Progress Note - Dictate Date Seen: August 28, 2024 Medical Necessity Reason Pt with a Central, PICC or Fol: Yes The following are medically ne: Pedroza Catheter Reason for pedroza catheter: Bladder Retention/Obstruc, Strict I&O vital signs Vital Sign Date Time Temp Pulse Resp B/P (MAP) Pulse Ox O2 Delivery O2 Flow Rate FiO2 08/28/24 13:00 97.6 89 18 106/48 (67) 98 97.6 08/28/24 08:00 Nasal Cannula* 2 28 Total Intake and Output 08/27/24 08/27/24 08/28/24 15:00 23:00 07:00 Intake Total 50 ml 1010 ml 800 ml Output Total 1750 ml 1270 ml Balance 50 ml -740 ml -470 ml medications Current Medications Medications Dose Ordered Sig/Justen Route Start Time Stop Time Status Last Admin Dose Admin Sodium Chloride 10 ml Q8HR IV 08/20/24 22:00 08/28/24 13:06 10 ML Docusate Sodium 100 mg BIDPRN PRN PO 08/20/24 17:00 08/28/24 09:25 100 MG Acetaminophen 650 mg Q6HP PRN PO 08/20/24 17:00 08/26/24 17:30 650 MG Acetaminophen/ Hydrocodone Bitart 1 tab Q4HP PRN PO 08/20/24 17:00 08/28/24 10:51 1 TAB Ondansetron HCl 4 mg Q4HP PRN IV 08/20/24 17:00 08/22/24 09:39 4 MG Baclofen 5 mg Q8HP PRN PO 08/21/24 12:30 08/27/24 16:16 5 MG Morphine Sulfate 1 mg Q4HP PRN IV 08/22/24 16:45 08/23/24 01:08 1 MG Fluconazole 200 mg DAILY PO 08/25/24 10:00 08/28/24 09:26 200 MG Diagnostic Test (Pha) 1 strip ACHS 08/25/24 11:30 08/28/24 11:12 1 STRIP Insulin Human Regular ACHS SC 08/25/24 11:30 08/28/24 11:17 4 UNITS Dextrose 50 ml UD PRN IV 08/25/24 08:00 Cefazolin Sodium/ Dextrose 50 ml @ 50 mls/hr Q8HR IV 5/2/25 14:00 08/28/24 13:06 50 MLS/HR laboratory and microbiology Laboratory Tests 08/27/24 05:17 Test 08/27/24 05:17 Range/Units Serum Glucose 130 H 74-106 mg/dL Assessment/Plan Covering for Dr. Montoya Impression Acute hypoxemic respiratory failure Septic shock Atelectasis DKA Patient seen and examined Events Low oxygen requirements On room air No acute events Labs and imaging reviewed Management Supplemental oxygen as needed Titrate to maintain sats 90% or above Incentive spirometry Continue antibiotics F/u cultures Bronchodilators Monitor renal function Monitor electrolytes Supplement as needed Glycemic control DVT prophylaxis Dietary Evaluation Review Comments: 1. When medically feasible, advance diet to 2 GNA CCHO-60, texture as tolerated. 2. Consider Renal specific diet if kidney function worsens. Expected Outcomes/Goals: controlled DM, gradual wt loss. Plan discussed with: Patient OBED SOSA MD August 28, 2024 15:26
--- NOTE | 2024-08-28 15:28 | DVHPN2 ---
Subjective in bed Reviewed: H&P Changes from previous H/P or p: No Changes General: Per HPI Objective Vitals Vital Signs Date Time Temp Pulse Resp B/P (MAP) Pulse Ox O2 Delivery O2 Flow Rate FiO2 08/28/24 13:00 97.6 89 18 106/48 (67) 98 97.6 08/28/24 08:00 Nasal Cannula* 2 28 Intake/Output Intake and Output 08/28/24 07:00 Intake Total 1860 ml Output Total 3020 ml Balance -1160 ml Intake Oral 1760 ml IV Total 100 ml Output Urine Total 3000 ml Other 20 ml # Bowel Movements 1 General Appearance: No acute distress HEENT: Atraumatic Lungs: Clear to auscultation Extremities: No clubbing, No cyanosis Medications Current Medications Medications Dose Ordered Sig/Justen Route Start Time Stop Time Status Last Admin Dose Admin Sodium Chloride 10 ml Q8HR IV 08/20/24 22:00 08/28/24 13:06 10 ML Docusate Sodium 100 mg BIDPRN PRN PO 08/20/24 17:00 08/28/24 09:25 100 MG Acetaminophen 650 mg Q6HP PRN PO 08/20/24 17:00 08/26/24 17:30 650 MG Acetaminophen/ Hydrocodone Bitart 1 tab Q4HP PRN PO 08/20/24 17:00 08/28/24 10:51 1 TAB Ondansetron HCl 4 mg Q4HP PRN IV 08/20/24 17:00 08/22/24 09:39 4 MG Baclofen 5 mg Q8HP PRN PO 08/21/24 12:30 08/27/24 16:16 5 MG Morphine Sulfate 1 mg Q4HP PRN IV 08/22/24 16:45 08/23/24 01:08 1 MG Fluconazole 200 mg DAILY PO 08/25/24 10:00 08/28/24 09:26 200 MG Diagnostic Test (Pha) 1 strip ACHS 08/25/24 11:30 08/28/24 11:12 1 STRIP Insulin Human Regular ACHS SC 08/25/24 11:30 08/28/24 11:17 4 UNITS Dextrose 50 ml UD PRN IV 08/25/24 08:00 Cefazolin Sodium/ Dextrose 50 ml @ 50 mls/hr Q8HR IV 08/26/24 14:00 08/28/24 13:06 50 MLS/HR Laboratory Results Laboratory Tests 08/27/24 05:17 Urinalysis Test 08/20/24 12:51 08/24/24 17:20 Urine Mucus Many (None Seen) Urine Color Light-brown (Yellow) Urine Clarity Turbid (Clear) H Urine pH 6.0 (5.0-9.0) Urine Specific [place] 1.022 (1.001-1.035) Urine Protein 1+ (Negative) H Urine Ketones 1+ (Negative) H Urine Blood 3+ /uL (Negative) H Urine Nitrite Negative (Negative) Urine Bilirubin Negative (Negative) Urine Urobilinogen Normal mg/dL (Negative) Urine Leukocyte Esterase Trace /uL (Negative) Urine RBC 63 /hpf (0 - 4) Urine Microscopic WBC 20 /HPF (0-5) H Urine Squamous Epithelial Cells Few /hpf (<5) Urine Bacteria Few /hpf (None Seen) H Urine Yeast (Budding) Many /hpf (None Seen) Urine Glucose 4+ mg/dL (Normal) H Microbiology Microbiology Date/Time Source Procedure Growth Status 08/27/24 05:17 Blood Blood Culture - Preliminary NO GROWTH AFTER 24 HOURS OF INCUBATION. Resulted 08/23/24 08:37 Urine - Catheterized Urine Culture - Final Complete 08/22/24 15:43 Nose MRSA Screen - Final Complete Assessment/Plan Assessment/Plan Neurology #Metabolic encephalopathy, likely due to septic shock monitor Cardiovascular #H/o CHF #H/o Hypertension #H/o pacemaker #pericardial effusion, small echocardiogram shows ef 50% monitor Pulmonology #Acute hypoxic respiratory failure #atelectasis continue NC at 2lts, maintain sat above 92% IS q1hr Nephrology #AZUCENA due to VMN on CKD #Elevated anion gap metabolic acidosis #Hydroureteronpehrois, left s/p nephrostomy tube placement #Nephrolithiasis, left #hematuria Urologist following, pending ESWL once stable 1cm stone in distal ureter, left Pain meds as needed bladder irrigation #Hypernatremia monitor encourage po water Endocrinology #Type 2 diabetes #Early DKA, resolved Monitor SSI mild Gastroenterology #Transaminitis, likely due to septic shock monitor Nutrition: mechanical soft Hematology and Oncology #Severe thrombocytopenia likely consumption from sepsis Monitor Infectious Disease #Septic shock due to UTI #Bacteremia, growing Streptococcus, and GPC in clusters #Lactic acidosis due to above dc vancomycin dc rocephin continue cefazolin 2g iv tid Pending urine culture Repeat blood cultures Dermatology x DVT ppx lovenox PUD ppx x Drips off levophed Lines right femoral TLC, remove continue pt patient is still bacteremic, pending blood cultures, urologist is also planning to do ESWL once bacteremia resolves dc planning to snf started Goals of care were discussed for 34 minutes. FULL CODE. Time spent outside of procedures 88 mins Plan discussed with: Patient Date of Service: August 28, 2024 Billing Provider: MARCO ANTONIO MAJOR MD Common Visit Codes: [id number] INP/OBS CARE(HIGH) MARCO ANTONIO MAJOR MD August 28, 2024 15:28
[2024-08-29] VITALS (9 sets, daily range): BP systolic 102–142; BP diastolic 50–77; PULSE 81–100; RESP 16–20; TEMP 97.3–99.6; O2SAT 96–99
[2024-08-29] MEDS: FLEET ENEMA(ADULT) 135 ML PR ONE (01:08)
[2024-08-29 12:14] LABS: Basophils # (auto) 0 10 ^3/uL (0-0.2); Basophils % (auto) 0.2 % (0.0-2.0); Eosinophils # (auto) 0 10 ^3/uL (0-0.8); Eosinophils % (auto) 0.1 % (0.0-7.0); Hematocrit 32.9 % (36.0-46.0); Hemoglobin 10.7 g/dL (12.2-16.2); Lymphocytes # (auto) 0.7 10 ^3/uL (0.4-5.4); Lymphocytes % (auto) 4.9 % (10.0-50.0); Mean Corpuscular Hemoglobin 28.2 pg (28.0-32.0); Mean Corpuscular Hgb Conc. 32.6 g/dL (32.0-36.0); Mean Corpuscular Volume 86.6 fL (80.0-100.0); Monocytes # (auto) 0.8 10 ^3/uL (0-1.3); Monocytes % (auto) 5.9 % (0.0-12.0); Neutrophils # (auto) 12.6 10 ^3/uL (1.6-8.6); Neutrophils % (auto) 88.9 % (37.0-80.0); Platelet Count (auto) 298 10^3/uL (140-450); Red Cell Distribution Width 14.7 % (11.8-14.3); White Blood Cell 14.2 10^3/uL (4.4-10.8)
[2024-08-29 12:33] LABS: Chloride 102 mmol/L (98-107); Potassium 4.5 mmol/L (3.5-5.1)
[2024-08-29 12:34] LABS: Anion Gap 6 (5-15); Calcium 9.2 mg/dL (8.7-10.4); Carbon Dioxide 25 mmol/L (20-31)
[2024-08-29 12:39] LABS: BUN/Creatinine Ratio 31.4 (10.0-20.0); Blood Urea Nitrogen 22 mg/dL (9-23)
[2024-08-29 12:40] LABS: Glucose 224 mg/dL (74-106); Sodium 133 mmol/L (136-145)
--- NOTE | 2024-08-29 16:35 | MEDREC ---
[facility] ASP Intervention Section I [facility] ASP Intervention: IV to PO conversion (PLEASE CONSIDER IV TO PO CONVERSION (PT IS TOLERATING FOOD AND ORAL MEDICATIONS )) COOKIE CRESPO PHARMACIST August 29, 2024 16:35
[2024-08-29] MEDS: CLOTRIMAZOLE 1 % CREAM 15GM TOP ONE (17:48)
--- NOTE | 2024-08-29 20:36 | DVHDSRES ---
Discharge Summary Date of Admission Resident Creating Document: TOMY PITTS RESIDENT Aug 20, 2024 at 16:56 Date of Discharge: August 29, 2024 Labs/Diagnostic Data: Laboratory Results Test 08/29/24 17:41 08/29/24 11:43 08/27/24 05:17 08/26/24 18:55 POC Glucose 152 mg/dl (70-106) White Blood Count 14.2 10^3/uL (4.4-10.8) Red Blood Count 3.80 10^6/uL (4.0-5.20) Hemoglobin 10.7 g/dL (12.2-16.2) Hematocrit 32.9 % (36.0-46.0) Mean Corpuscular Volume 86.6 fL (80.0-100.0) Mean Corpuscular Hemoglobin 28.2 pg (28.0-32.0) Mean Corpuscular Hemoglobin Concent 32.6 g/dL (32.0-36.0) Red Cell Distribution Width 14.7 % (11.8-14.3) Platelet Count 298 10^3/uL (140-450) Mean Platelet Volume 8.5 fL (6.9-10.8) Neutrophils (%) (Auto) 88.9 % (37.0-80.0) Lymphocytes (%) (Auto) 4.9 % (10.0-50.0) Monocytes (%) (Auto) 5.9 % (0.0-12.0) Eosinophils (%) (Auto) 0.1 % (0.0-7.0) Basophils (%) (Auto) 0.2 % (0.0-2.0) Neutrophils # (Auto) 12.6 10 ^3/uL (1.6-8.6) Lymphocytes # (Auto) 0.7 10 ^3/uL (0.4-5.4) Monocytes # (Auto) 0.8 10 ^3/uL (0-1.3) Eosinophils # (Auto) 0 10 ^3/uL (0-0.8) Basophils # (Auto) 0 10 ^3/uL (0-0.2) Nucleated Red Blood Cells 0.0 % Sodium Level 133 mmol/L (136-145) Potassium Level 4.5 mmol/L (3.5-5.1) Chloride Level 102 mmol/L (98-107) Carbon Dioxide Level 25 mmol/L (20-31) Anion Gap 6 (5-15) Blood Urea Nitrogen 22 mg/dL (9-23) Creatinine 0.70 mg/dL (0.550-1.02) Glomerular Filtration Rate Calc 91 mL/min (>90) BUN/Creatinine Ratio 31.4 (10.0-20.0) Serum Glucose 224 mg/dL (74-106) Calcium Level 9.2 mg/dL (8.7-10.4) Differential Total Cells Counted 100.0 (100) Neutrophils % (Manual) 85 (37.0-80.0) Band Neutrophils % (Manual) 2 Lymphocytes % (Manual) 7 (10.0-50.0) Monocytes % (Manual) 4 (0-12) Eosinophils % (Manual) 1 (0-7) Basophils % (Manual) 0 (0.0-2.0) Metamyelocytes % (manual) 0 Myelocytes % (Manual) 0 Promyelocytes % (Manual) 0 Blast Cells % (Manual) 0 Reactive Lymphocytes 1 Platelet Estimate Adequate Red Blood Cell Morphology Anisocytosis (manual) Slight Magnesium Level 1.8 mg/dL (1.6-2.6) Total Bilirubin 0.5 mg/dL (0.2-1.0) Aspartate Amino Transferase (AST) 27 U/L (13-40) Alanine Aminotransferase (ALT) 14 U/L (7-40) Alkaline Phosphatase 78 U/L (46-116) Total Protein 5.1 g/dL (5.7-8.2) Albumin 2.2 g/dL (3.2-4.8) Vancomycin Level Trough 13.1 ug/mL (5-10) Test 08/25/24 05:37 08/24/24 17:20 08/24/24 03:14 08/22/24 23:30 Hemoglobin A1c 7.7 % A1C (<5.7) Ammonia 20 umol/L (11-32) Urine Color Light-brown (Yellow) Urine Clarity Turbid (Clear) Urine pH 6.0 (5.0-9.0) Urine Specific [place] 1.022 (1.001-1.035) Urine Protein 1+ (Negative) Urine Ketones 1+ (Negative) Urine Blood 3+ /uL (Negative) Urine Nitrite Negative (Negative) Urine Bilirubin Negative (Negative) Urine Urobilinogen Normal mg/dL (Negative) Urine Leukocyte Esterase Trace /uL (Negative) Urine RBC 63 /hpf (0 - 4) Urine Microscopic WBC 20 /HPF (0-5) Urine Squamous Epithelial Cells Few /hpf (<5) Urine Bacteria Few /hpf (None Seen) Urine Yeast (Budding) Many /hpf (None Seen) Urine Glucose 4+ mg/dL (Normal) Random Vancomycin Level 14.6 ug/mL (5-10) Prothrombin Time 12.4 sec (9.3-11.8) Prothrombin Time INR 1.19 (0.9-1.15) Activated Partial Thromboplast Time 33.6 SEC (24.5-34.5) Test 08/21/24 13:00 08/21/24 07:53 08/21/24 03:56 08/20/24 14:45 Blood Gas Specimen Type Arterial Blood Gas Sample Site Left radial Blood Gas Patient Temperature 37.0 Arterial Blood Date Drawn [id number] Arterial Blood pH 7.355 (7.350-7.450) Arterial Blood Partial Pressure CO2 23.7 mmHg (32.0-45.0) Arterial Blood Partial Pressure O2 84.2 mmHg (83.0-108.0) Arterial Blood HCO3 12.9 mmol/L (21.0-28.0) Arterial Blood Oxygen Saturation 96.4 % (94.0-98.0) Arterial Blood Base Excess -10.3 mmol/L (-2.0-3.0) Arterial Blood Oxyhemoglobin 95.1 % (94.0-98.0) Arterial Blood Carboxyhemoglobin 0.4 % (0.5-1.5) Arterial Blood Methemoglobin 0.9 % (0.0-1.5) Bright Test Yes Blood Gas Total Hemoglobin 15.50 g/dL (12.0-16.0) Blood Gas Liter Flow 2.00 Blood Gas Modality Nasal cannula FiO2 % 28.0 Lactic Acid Level 2.1 mmol/L (0.4-2.0) Smudge Cells 2 /100 WBC Creatine Kinase 157 U/L (34-145) Influenza Type A Antigen Negative (Negative) Influenza Type B Antigen Negative (Negative) SARS-CoV-2 Antigen (Rapid) Negative (NEGATIVE) Test 08/20/24 14:36 08/20/24 12:51 08/20/24 11:48 Large Platelets Few [place] Cells Few Troponin I High Sensitivity 10 ng/L (</=34) Urine Mucus Many (None Seen) Serum Osmolality 306 mOsm/kg (278-298) Phosphorus Level 6.2 mg/dL (2.4-5.1) Beta-Hydroxybutyric Acid 2.865 mmol/L (< 0.4) Other Laboratory Tests 08/29/24 11:43 Brief Hx & Hospital Course: Zeny Chan is a 73-year-old female patient who presents to ED with chief complaint of generalized weakness six days before her admission, associated with malaise, fatigue and body aches. Patient also reports polydipsia and polyuria. During ER visit completed abdomen and pelvis CT which showed hydronephrosis secondary to nephrolithiasis. Denies any other associated symptom. Past medical history: Hypertension, diabetes, diastolic CHF (HFpEF LVEF 50%) status post ICD placement, Surgical history: ICD placement Family history: Noncontributory Social history: Lives with family in home. Denies current tobacco, alcohol and other drug abuse Allergies: Nicotine Home medication: Atorvastatin 10 mg p.o. daily, empagliflozin 25 mg p.o. daily, mexiletine 150 mg p.o. t.i.d., potassium, Entresto one tablet p.o. b.i.d., spironolactone 25 mg p.o. daily Brief hospital course: Septic shock secondary to UTI due to hydronephrosis with nephrolithiasis associated with metabolic encephalopathy, early DKA and is agalactiae group B bacteremia, responding to empiric IV antibiotic (vancomycin, cefepime and Rocephin, discharged with cefazolin), IV fluids and IV vasopressors for less than 72 hours. Evaluated by Urology Nephrology specialist recommending placement of nephrostomy tube in left kidney, procedure was completed successfully. Completed abdomen and pelvis CT which showed correct placement of nephrostomy tube with no dislodgement. Patient presented fluid overload in lone episode of atrial fibrillation responding to IV diuretics and treatment of underlying cause (sepsis), could not start blood thinners due to jasper hematuria, echocardiogram showed LVEF of 50% (report has been attached to discharge). Patient was downgraded to telemetry, completed physical therapy evaluation. Patient will benefit from discharge to SNF to complete IV antibiotic (cefazolin) and physical therapy sessions. We will discharge patient once she obtains midline and TLC right femoral catheter is removed. Patient hemodynamically stable, asymptomatic, in condition to be discharged to SNF to complete physical therapy sessions and IV antibiotic with cefazolin due to bacteremia. Was granted under optimal medical therapy, gave her advice on healthy lifestyle habits, and follow up with PCP, Nephrology and urologist. Urologist planning to complete surgery as outpatient once bacteremia has resolved. Patient has to see interventional radiologist for eventual removal of nephrostomy tube once urological surgeries completed. DIAGNOSIS # Septic shock due to UTI # Metabolic encephalopathy, likely due to septic shock # Acute on chronic diastolic CHF (HFpEF, LVEF 50%) # H/o Hypertension # H/o pacemaker # Pericardial effusion, small # Acute hypoxic respiratory failure # Paroxysmal A-Fib (Chads Vasc 4/ Has Bled 3) secondary hypercoagulability state # Atelectasis # AZUCENA due to VMN on CKD # Elevated anion gap metabolic acidosis # Hydroureteronpehrois, left s/p nephrostomy tube placement # Nephrolithiasis, left # Hematuria # Hypernatremia # Type 2 diabetes # Early DKA, resolved # Transaminitis, likely due to septic shock # Severe thrombocytopenia likely consumption from sepsis # Bacteremia, growing Streptococcus, and GPC in clusters # Lactic acidosis due to above Discussed plan with Dr. Valdes, patient and nurses. Physical examination Patient lying in bed, in no acute distress General: Lucid, afebrile, mucosae are moist Cardiovascular: Normal S1 and S2. No murmurs, gallops or rubs Respiratory: Normal ventilation mechanics. Clear lung sounds on auscultation Abdomen: Soft, nontender, no organomegaly, normal bowel sounds : Left nephrostomy tube draining clear urine, no erythema in surgical site. MSK/skin: Mobilizes 4 limbs. Skin is dry and warm Neurological: Oriented in 3 spheres. No motor no sensitive deficits. Pupils are isocoric and reactive time for discharge planning is 41 mins Operations or Procedures ORDERING PHYSICIAN: ARIEL BAILON RESIDENT PROCEDURE(s): ECIDC - ECHO 2D MODE CARDIAC DOP REASON: chest pain ORDER NUMBER(s): [id number], ACCESSION NUMBER(s): [id number] APPROVED REPORT EXAM: Two-dimensional and M-mode echocardiogram with Doppler and color Doppler. Blood Pressure: 112/53 mmHg INDICATION Chest Pain Surgery/Intervention Pacemaker: RISK FACTORS Height: 5'2", Weight: 138 DIMENSIONS LVDd 4.2 (3.8-5.7cm) LA (2D) (1.9-4.0cm) Aortic Root 3.1 (2.0- 3.7cm) LVDs 3.2 (2.5-4.0cm) LA (MM) (1.9-4.0cm) Aortic Cusp Exc 1.3 (1.5- 2.0cm) EF (%) 48.0 (55-70%) Rt. Atrium (1.9-4.0cm) Asc. Aorta cm IVSd 0.9 (0.7-1.1cm) RV (D) (1.8-2.4cm) PWd 1.1 (0.7-1.1cm) Mitral Valve Mitral Mitral Stenosis E/A ratio 0.0 2D MVA cm2 Aortic Valve Aortic Valve Aortic Stenosis LVOT Diameter 1.9 (1.8-2.4cm) Doppler JULIANE cm2 Tricuspid Valve TR Velocity 2.28m/s RVSP 24mmHg Other Information Quality : Technically Limited Rhythm : Technically limited study due to body habitus, patient position, patient altered and uncooperative. Conclusion lvef 50% by visual estimate mild LVH normal rv function small pericardial effusion, therei s fibrinous material in pericardial space, ?fat pad present no HD compromsie normal RV Function SIGNED BY: JACOB MEZA MD SIGNED DATE/TIME: 08/23/24 1142 CHEST RADIOGRAPH Indication: weakness Technique: Single frontal view of the chest was obtained COMPARISON: None FINDINGS: Lines and Tubes: Pacemaker wires appear intact Lungs: Clear Pleura: No effusion. No pneumothorax. Cardiomediastinal contours: Mild cardiomegaly. Vascular calcification of the aortic arch. Bones: Unremarkable IMPRESSION: 1. No acute disease. ATED BY: PILO WHEELER MD DICTATED DATE/TIME: 08/20/24 1245 RENAL ULTRASOUND CLINICAL HISTORY: AZUCENA on CKD TECHNIQUE: Multiple grayscale ultrasound images were obtained through the kidneys and urinary bladder. COMPARISON: None FINDINGS: Right kidney: Measures 9.63 cm. No hydronephrosis. Mild increased cortical echogenicity. Left kidney: Measures 7.85 cm. No hydronephrosis. Cyst in the left kidney measures 2.1 x 1.7 x 1.2 cm. Mild increased cortical echogenicity. Urinary bladder: Masters catheter decompresses the urinary bladder. IMPRESSION: 1. No evidence of hydronephrosis. 2. Small left renal cyst. 3. Mild increased bilateral cortical echogenicity which is likely due to medical renal disease. ATED BY: MARIANELA ALVAREZ MD DICTATED DATE/TIME: 08/20/[address] SCAN ABDOMEN AND PELVIS WITHOUT CONTRAST CLINICAL HISTORY: abdominal pain TECHNIQUE: Helical axial images are obtained from the lung bases through the pelvis without oral contrast. No intravenous contrast was administered. Coronal and sagittal reformatted images were generated from thin section reconstructions. One or more of the following radiation dose reduction techniques were used for this examination: automated exposure control, adjustment of the mA and/or kV according to patient size, use of iterative reconstruction technique. COMPARISON: Renal ultrasound 08/20/2024 FINDINGS: LOWER THORAX: Dependent atelectasis in the lower lobes. ABDOMEN AND PELVIS: Evaluation of visceral and vascular structures is limited due to lack of contrast administration. As visualized, the unenhanced liver, spleen, pancreas and right adrenal appear grossly unremarkable. Mild nodular thickening of the left adrenal gland is noted. Layering sludge/calculi in the gallbladder. No definite CT evidence cholecystitis. [id number] left hydroureteronephrosis. An approximately 1 cm x 0.6 cm irregular calculus seen in the distal left ureter. Additional small nonobstructing left lower pole nephrolithiasis as well. Aortoiliac atherosclerotic calcifications. No evidence of abdominal aortic aneurysm. No evidence of bowel obstruction. Extensive colonic diverticulosis. No definite CT evidence of diverticulitis at this time. No free intraperitoneal air or fluid identified. Air urinary bladder is collapsed around a Masters catheter. Multilevel degenerative changes of the lumbar spine. IMPRESSION: [id number] left hydroureteronephrosis. Approximately 1 cm x 0.6 cm calculus seen in the distal left ureter. Other findings as above. ATED BY: JACOB BRIZUELA MD DICTATED DATE/TIME: 08/21/24 0019 XY PERCUTANEOUS NEPHROSTOMY, HISTORY: PERC NEPHROSTOMY DRAIN PLACEMENT due to septic kidney stone in the ureter. PROCEDURE: Informed consent was obtained. The patient was placed on the fluoroscopic table in a prone position and IV sedation administered. The left flank was prepped with chlorhexidine which was allowed to dry and draped in the usual sterile fashion. Time out was performed. and the soft tissues infiltrated with 1% lidocaine local anesthetic. Utilizing ultrasound guidance, a 21 gauge Accu Stick needle was advanced from a posterolateral approach into an upper pole calyx, and a small amount of contrast was injected under fluoroscopy to confirm positioning. Over a mandril wire, exchange was made to a non-vascular access set, through which was advanced an 0.035 wire. Following serial dilation, an 8.5 Norwegian multipurpose nephrostomy catheter was placed with tip pigtailed within the renal pelvis. Position was confirmed with antegrade nephrostogram. The catheter was secured in place and connected to gravity drainage. A sterile dressing was applied. No immediate complication was identified. DAP 170 FLUOROSCOPY TIME: 2.0 minutes. CONTRAST USED: 10 mL Isovue 300. SEDATION: Dr. Venkatesh Schneider was personally responsible for the administration of moderate sedation during the procedure performed, including the use of an independent trained observer who had no other duties during the procedure. The drugs utilized were IV fentanyl and versed (see nursing log for details). The total time of supervision by the attending physician was approximately 30 minutes. FINDINGS: Mild to moderately dilated left renal collecting system including the ureter to the level of the distal ureter. Placement of a 8.5 russian left nephrostomy tube into the renal pelvis. IMPRESSION: Mild to moderately left hydronephrosis including the ureter to the level of the distal ureter. Placement of a 8.5 russian left nephrostomy tube into the renal pelvis. PLAN: Routine catheter care. ATED BY: TERRY SCHNEIDER MD DICTATED DATE/TIME: 08/22/24 190 US US GUIDANCE FOR NEEDLE PLACEME, HISTORY: PERC NEPHROSTOMY DRAIN PLACEMENT due to septic kidney stone in the ureter. PROCEDURE: Informed consent was obtained. The patient was placed on the fluoroscopic table in a prone position and IV sedation administered. The left flank was prepped with chlorhexidine which was allowed to dry and draped in the usual sterile fashion. Time out was performed. and the soft tissues infiltrated with 1% lidocaine local anesthetic. Utilizing ultrasound guidance, a 21 gauge Accu Stick needle was advanced from a posterolateral approach into an upper pole calyx, and a small amount of contrast was injected under fluoroscopy to confirm positioning. Over a mandril wire, exchange was made to a non-vascular access set, through which was advanced an 0.035 wire. Following serial dilation, an 8.5 Norwegian multipurpose nephrostomy catheter was placed with tip pigtailed within the renal pelvis. Position was confirmed with antegrade nephrostogram. The catheter was secured in place and connected to gravity drainage. A sterile dressing was applied. No immediate complication was identified. DAP 170 FLUOROSCOPY TIME: 2.0 minutes. CONTRAST USED: 10 mL Isovue 300. SEDATION: Dr. Venkatesh Schneider was personally responsible for the administration of moderate sedation during the procedure performed, including the use of an independent trained observer who had no other duties during the procedure. The drugs utilized were IV fentanyl and versed (see nursing log for details). The total time of supervision by the attending physician was approximately 30 minutes. FINDINGS: Mild to moderately dilated left renal collecting system including the ureter to the level of the distal ureter. Placement of a 8.5 russian left nephrostomy tube into the renal pelvis. IMPRESSION: Mild to moderately left hydronephrosis including the ureter to the level of the distal ureter. Placement of a 8.5 russian left nephrostomy tube into the renal pelvis. PLAN: Routine catheter care. ATED BY: TERRY SCHNEIDER MD DICTATED DATE/TIME: 08/22/24 2715 ORDERING PHYSICIAN: ARIEL BAILON RESIDENT PROCEDURE(s): ABPL - CT AB PEL WO CON-NO ORAL OR IV REASON: nephrolithiasis ORDER NUMBER(s): [id number], ACCESSION NUMBER(s): [id number] Exam: CT CT AB PEL WO CON-NO ORAL OR IV History: nephrolithiasis Comparison Study: CT CT AB PEL WO CON-NO ORAL OR IV on DOS: 08/20/24 Technique: Multidetector spiral CT of the abdomen was performed from lung bases to pubic symphysis. Imaging was performed without IV contrast. Axial, coronal and sagittal multiplanar reformats were obtained from the axial data set by the technologist. Radiation Dose : 1. Abdomen/Pelvis: CTDIvol 19.36 mGy, DLP 1038.03 mGy*cm. Findings: Evaluation of solid organs is limited due to lack of intravenous contrast use. Lung Bases: Cardiomegaly. Coronary artery calcifications. Vascular calcifications of the aorta. Liver: The liver is normal in size. No focal lesions. Gallbladder and Biliary Tree: Gallbladder sludge is present. Spleen: Unremarkable Pancreas: The pancreas is grossly normal in appearance. Adrenal Glands: Unremarkable Kidneys: Right kidney is unremarkable. Left nephrostomy in satisfactory position. Bladder: Grossly unremarkable for degree of distention. Bowel: The stomach is grossly normal in appearance. Diverticulosis. The appendix is not visualized; however, no secondary findings of acute appendicitis identified. Ascites: Absent Lymphadenopathy: No mesenteric, retroperitoneal or periportal lymphadenopathy. Abdominal Wall and Mesentery: Unremarkable. Vasculature: The visualized abdominal aorta is normal in size and caliber. There is extensive atherosclerotic calcification of the aorta and its branches. Evaluation of abdominal and pelvic vessels is limited due to lack of intravenous contrast. Pelvic Organs: Unremarkable Musculoskeletal: No aggressive focal bony lesions, acute fractures or dislocation. Degenerative changes of the spine. IMPRESSION: Left nephrostomy in satisfactory position. No appreciable hydronephrosis. Unchanged calcification in the region of the distal left ureter measuring 0.6 cm. This may represent an unchanged ureteral stone versus pelvic phlebolith. Radiation optimization: All CT scans at this facility use at least one of these dose optimization techniques: automated exposure control mA and/or kV adjustment per patient size (includes targeted exams where dose is matched to clinical indication) or iterative reconstruction. ATED BY: BERNARD DIEZ MD DICTATED DATE/TIME: 08/25/24 9821 Condition at Discharge: Fair Final Diagnosis/Problems List # Septic shock due to UTI # Metabolic encephalopathy, likely due to septic shock # Acute on chronic diastolic CHF (HFpEF, LVEF 50%) # H/o Hypertension # H/o pacemaker # Pericardial effusion, small # Acute hypoxic respiratory failure # Paroxysmal A-Fib (Chads Vasc 4/ Has Bled 3) secondary hypercoagulability state # Atelectasis # AZUCENA due to VMN on CKD # Elevated anion gap metabolic acidosis # Hydroureteronpehrois, left s/p nephrostomy tube placement # Nephrolithiasis, left # Hematuria # Hypernatremia # Type 2 diabetes # Early DKA, resolved # Transaminitis, likely due to septic shock # Severe thrombocytopenia likely consumption from sepsis # Bacteremia, growing Streptococcus, and GPC in clusters # Lactic acidosis due to above Discharge Disposition: Shelter Facility SNF Discharge Will this Physician continue t: No Discharge Instruct/Medications Diet: Cardiac 2g Na,low cholest, Renal Activity: No Restrictions, As Tolerated Follow Up/Referral: PCP Nephrology Urology Medications: Per EMR Discharge Statement: "Patient was advised to return to the ER or call 911 if any headaches, dizziness, shortness of breath, chest pain, abdominal pain, bleeding, fevers, or worsening of medical condition. Patient was counseled about treatment plan, medications, possible side effects, patientverbalized understanding. All questions were answered to the best of my ability. This discharge took greater then 30 minutes in planning, reviewing documentation, counseling the patient, and discussing with other team members." ASSESSMENT ASSESSMENT Assessment septic shock due to uti Date of Service: August 29, 2024 Billing Provider: GONZALO VALDES MD Common Visit Codes: 70274-TIF/OBS DISCH DAY >30min TOMY PITTS August 29, 2024 20:36 GONZALO VALDES MD August 30, 2024 15:21
[2024-08-29] MEDS: CLOTRIMAZOLE 1 % CREAM 15GM TOP SCH (22:17)
[2024-08-30 01:00] VITALS: BP 118/55; PULSE 88; RESP 19; TEMP 97.6; O2SAT 98
[2024-08-30 05:00] VITALS: BP 117/47; PULSE 91; RESP 19; TEMP 97.6; O2SAT 97
[2024-08-30 08:00] VITALS: PULSE 85; O2SAT 97
[2024-08-30 09:00] VITALS: BP 113/57; PULSE 85; RESP 20; TEMP 97.4; O2SAT 97
[2024-08-30 13:00] VITALS: BP 103/98; PULSE 89; RESP 20; TEMP 97.9; O2SAT 98
[2024-08-30 17:00] VITALS: BP 100/48; PULSE 90; RESP 21; TEMP 98.1; O2SAT 97
--- NOTE | 2024-08-30 22:16 | DVHPNRES ---
Progress Note Date Seen: August 30, 2024 Resident Creating Document: TOMY PITTS RESIDENT Medical Necessity Reason Pt with a Central, PICC or Fol: Yes The following are medically ne: Pedroza Catheter Reason for pedroza catheter: Bladder Retention/Obstruc, Strict I&O Subjective Review of Systems Zeny Chan is a 73-year-old female patient who presents to ED with chief complaint of generalized weakness six days before her admission, associated with malaise, fatigue and body aches. Patient also reports polydipsia and polyuria. During ER visit completed abdomen and pelvis CT which showed hydronephrosis secondary to nephrolithiasis. Denies any other associated symptom. Past medical history: Hypertension, diabetes, diastolic CHF (HFpEF LVEF 50%) status post ICD placement, Surgical history: ICD placement Family history: Noncontributory Social history: Lives with family in home. Denies current tobacco, alcohol and other drug abuse Allergies: Nicotine Home medication: Atorvastatin 10 mg p.o. daily, empagliflozin 25 mg p.o. daily, mexiletine 150 mg p.o. t.i.d., potassium, Entresto one tablet p.o. b.i.d., spironolactone 25 mg p.o. daily Patient seen and examined at bedside. Prolonged admission awaiting midline to continue IV antibiotics due to septic shock sudden injury to UTI. We will be discharged today to SNF to continue IV antibiotic to complete 14 days and PT sessions. Objective vital signs Vital Sign Date Time Temp Pulse Resp B/P (MAP) Pulse Ox O2 Delivery O2 Flow Rate FiO2 08/30/24 17:00 98.1 90 21 100/48 (65) 97 98.1 08/30/24 08:00 Nasal Cannula* 2 28 Total Intake and Output 08/29/24 08/29/24 08/30/24 15:00 23:00 07:00 Intake Total 50 ml 1150 ml Output Total 400 ml 300 ml 1200 ml Balance -400 ml -250 ml -50 ml Examination Patient lying in bed, in no acute distress General: Lucid, afebrile, mucosae are moist Cardiovascular: Normal S1 and S2. No murmurs, gallops or rubs Respiratory: Normal ventilation mechanics. Clear lung sounds on auscultation Abdomen: Soft, nontender, no organomegaly, normal bowel sounds : Left nephrostomy tube draining clear urine, no erythema in surgical site. MSK/skin: Mobilizes 4 limbs. Skin is dry and warm Neurological: Oriented in 3 spheres. No motor no sensitive deficits. Pupils are isocoric and reactive laboratory and microbiology Laboratory Tests 08/29/24 11:43 Test 08/29/24 11:43 Range/Units Serum Glucose 224 H 74-106 mg/dL Microbiology Date/Time Source Procedure Growth Status 08/27/24 05:17 Blood Blood Culture - Preliminary NO GROWTH AFTER 72 HOURS OF INCUBATION. Resulted 08/23/24 08:37 Urine - Catheterized Urine Culture - Final Complete 08/22/24 15:43 Nose MRSA Screen - Final Complete Problem List/Assessment/Plan Problem List/Assessment/Plan Assessment: # Septic shock due to UTI # Metabolic encephalopathy, likely due to septic shock # Acute on chronic diastolic CHF (HFpEF, LVEF 50%) # H/o Hypertension # H/o pacemaker # Pericardial effusion, small # Acute hypoxic respiratory failure # Paroxysmal A-Fib (Chads Vasc 4/ Has Bled 3) secondary hypercoagulability state # Atelectasis # AZUCENA due to VMN on CKD # Elevated anion gap metabolic acidosis # Hydroureteronpehrois, left s/p nephrostomy tube placement # Nephrolithiasis, left # Hematuria # Hypernatremia # Type 2 diabetes # Early DKA, resolved # Transaminitis, likely due to septic shock # Severe thrombocytopenia likely consumption from sepsis # Bacteremia, growing Streptococcus, and GPC in clusters # Lactic acidosis due to above Plan: Continue with IV antibiotic (cefazolin) Optimize pain management Last blood culture negative Patient is status post left nephrostomy tube placement. We will have to be evaluated by Urology as an outpatient for resolution of nephrolithiasis Goals of care discussed with patient for over 18 minutes: Full code status Discussed plan with Dr. Montoya, patient and nurses: Obtain midline, removed TLC from right femoral region. Arranging discharge plans to SNF to continue with IV antibiotics and PT session. Patient has to see urologist as outpatient. Time spent on discharge planning which included time with nurses, family and paperwork of 41 minutes. Plan discussed with: Patient, Other (Nurses) My Orders My Orders Orders - TOMY PITTS RESIDENT Procedure Category Date Status Time * Investigative Agent CONS 08/30/24 Transmitted Consult 12:11 Dietary Evaluation Review Comments: 1. When medically feasible, advance diet to 2 GNA CCHO-60, texture as tolerated. 2. Consider Renal specific diet if kidney function worsens. Expected Outcomes/Goals: controlled DM, gradual wt loss. TOMY PITTS RESIDENT August 30, 2024 22:16
== END 2024-08-30 18:15 | DRG 871 ==
LOC: EDBD 11:17 → ER 11:21 → OVERFLOW 16:56 → ICU WEST 08-22 15:29 → TELE-CENTR 08-24 16:02
PROVIDERS: ADMIT Internal Medicine; ATTEND Internal Medicine
PROC: 0T943ZZ Drainage of Left Kidney Pelvis, Percutaneous Approach (ICD-10-PCS; principal; 2024-08-22)
PROC: 05HC33Z Insertion of Infusion Device into Left Basilic Vein, Percutaneous Approach (ICD-10-PCS; 2024-08-30)
PROC: B54NZZA Ultrasonography of Left Upper Extremity Veins, Guidance (ICD-10-PCS; 2024-08-30)
DX: A40.9 Streptococcal sepsis, unspecified (principal); E11.10 Type 2 diabetes mellitus with ketoacidosis without coma; R65.21 Severe sepsis with septic shock; N17.0 Acute kidney failure with tubular necrosis; G93.41 Metabolic encephalopathy; J96.01 Acute respiratory failure with hypoxia; I50.33 Acute on chronic diastolic (congestive) heart failure; I13.0 Hypertensive heart and chronic kidney disease with heart failure and stage 1 through stage 4 chronic kidney disease, or unspecified chronic kidney disease; I31.39 Other pericardial effusion (noninflammatory); J98.11 Atelectasis; E87.0 Hyperosmolality and hypernatremia; N13.6 Pyonephrosis; Z20.822 Contact with and (suspected) exposure to COVID-19; E11.22 Type 2 diabetes mellitus with diabetic chronic kidney disease; E86.0 Dehydration; D69.6 Thrombocytopenia, unspecified; E11.65 Type 2 diabetes mellitus with hyperglycemia; R31.9 Hematuria, unspecified; N18.30 Chronic kidney disease, stage 3 unspecified; R74.01 Elevation of levels of liver transaminase levels; D69.59 Other secondary thrombocytopenia; Z95.0 Presence of cardiac pacemaker; Z87.442 Personal history of urinary calculi
CPT/HCPCS: 36415; 36600; 71045; 74018; 74176; 74425; 76775; 76942; 80048; 80053; 80202; 81001; 82010; 82140; 82550; 82805; 82962; 83036; 83605; 83735; 83930; 84100; 84484; 85007; 85025; 85027; 85610; 85730; 87040; 87077; 87081; 87086; 87186; 87426; 87804; 93005; 93306; 93971; 96361; 96374; 97110; 97116; 97163; 97530; 99152; 99291; G0378; J0692; J1815; J2185; J2405; J2543